=== PATIENT | male | born 1960 | race Caucasian/White ===

== ENCOUNTER → 2017-07-04 15:08 | Outpatient (CLI) | payer BC, SELFPAY ==
[2017-07-04 16:53] LABS: Blood Urea Nitrogen 13 mg/dL (7-18); Creatinine,Serum 0.93 mg/dL (0.70-1.30); Estimated Glomerular Filt Rate 84 ml/min (>60); GFR (African American) 102 ML/MIN (>60)
== END ==
PROVIDERS: PCP Family Medicine; Visit Provider Surgery
DX: R10.30 Lower abdominal pain, unspecified (principal)
CPT/HCPCS: 36415; 82565; 84520

== ENCOUNTER → 2017-07-10 08:52 | Outpatient (CLI) | payer BC, SELFPAY ==
--- NOTE | 2017-07-10 08:54 | CT_ITS ---
CT abdomen pelvis w con CLINICAL INDICATION: Lower abdominal/pelvic pain ITS.REASON: PELVIC PAIN ORDERING PHYSICIAN: Christiano Faria MD PATIENT AGE: 56 years TECHNIQUE: Axial images obtained with sagittal and coronal reformats. All CT scans at the facility use one or more dose reduction, viz: automated exposure control; ma/kV adjustment per patient size (including targeted exams where dose is matched to indication; i.e. head); or iterative reconstruction technique. PROCEDURE: Oral Contrast: Redicat IV Contrast: 75 mL's of Isovue-370. FINDINGS: No acute finding is lower chest. The liver, spleen, adrenal glands, pancreas, and kidneys have an unremarkable appearance. There is a moderate amount retained colonic feces in the ascending and transverse colon. No intestinal obstruction or free air. No evidence of appendicitis or diverticulitis. No pelvic mass or focal inflammatory change or abnormal fluid collection in the pelvis. There is a small left inguinal hernia containing fat. No acute bony anomalies. IMPRESSION: No acute finding. Small left inguinal hernia containing fat. Otherwise negative CT abdomen and pelvis
== END ==
PROVIDERS: Family Provider Family Medicine; PCP Family Medicine; Visit Provider Surgery
DX: R10.30 Lower abdominal pain, unspecified (principal)
CPT/HCPCS: 74177; Q9967

== ENCOUNTER → 2017-11-26 15:44 | Outpatient (CLI) | payer BC, SELFPAY ==
--- NOTE | 2017-11-26 15:51 | XR_ITS ---
XR chest 2V HISTORY: ITS.REASON: H/O TOBACCO USE ORDERING PHYSICIAN: Raymundo Aldana MD PATIENT AGE: 57 years COMPARISON: None FINDINGS: The cardiomediastinal silhouette and pulmonary vascularity are within normal limits. The lungs are clear without infiltrates, suspicious nodules, or pleural effusions. There is a calcified granuloma in the right upper lobe and right lower lobe. No acute bony abnormalities. IMPRESSION: Old granulomatous disease, no acute finding
== END ==
PROVIDERS: PCP Family Medicine; Visit Provider Family Medicine
DX: Z01.818 Encounter for other preprocedural examination (principal)
CPT/HCPCS: 71046

== ENCOUNTER 2018-03-26 09:00 | Outpatient (RCR) | payer BC, SELFPAY | END 2018-03-26 09:03 | disposition home or self-care (01) | LOC: PT 09:00 | PROVIDERS: Family Provider Family Medicine; PCP Family Medicine; Visit Provider Orthopaedic Surgery | DX: Z96.651 Presence of right artificial knee joint (principal) | CPT/HCPCS: 97010; 97014; 97016; 97110; 97140; 97163; 97164; G0283 ==

== ENCOUNTER 2021-03-14 12:13 | Emergency (ER) | payer BC, SELFPAY ==
[2021-03-14 13:30] VITALS: BP 105/69; PULSE 69; RESP 20; TEMP 36.7; O2SAT 100; BMI 26.9
[2021-03-14 13:45] LABS: UTC Strep Screen (Rapid) Negative (Negative)
--- NOTE | 2021-03-14 14:28 | HMH.EDUTC ---
[facility] [place] Disposition Clinical Impression: Diarrhea Qualifiers: Diarrhea type: unspecified type Qualified Code(s): R19.7 - Diarrhea, unspecified Sinusitis Qualifiers: Sinusitis location: unspecified location Chronicity: unspecified Qualified Code(s): J32.9 - Chronic sinusitis, unspecified Disposition: Home, Self-Care Condition on Discharge: Good Instructions: Sinusitis, DI for Sinusitis Additional Instructions: Make sure that you are drinking plenty of fluids Drink extra fluids with and between meals. If you have difficulty drinking, try very small amounts of water or suck on ice chips. ? Avoid fruit juices, as these do not replace minerals and can actually increase diarrhea. ? Children and adults can use sports drinks to replenish electrolytes. Younger children and infants should use products formulated for children, like oral rehydration solutions. ? Eat food in small amounts and let your stomach recover. ? Get lots of rest. You may feel tired or weak. ? No greasy or fried foods for the next 24-48 hours BRAT diet Bananas Rice Apples and [place] ? Make sure to drink plenty of liquids ? Return if needed ? Straight to ER if any life threatening symptoms ? Zofran as prescribed ? Follow up with family doctor in the next 48-72 hours if no improvement or any worsening of symptoms Prescriptions: Dicyclomine HCl [Bentyl 10mg capsule] 10 mg PO TID PRN #15 cap PRN Reason: Cramping Transmission Status: Received by [facility] Azithromycin [Z-Isxto 250mg Tab] 250 mg PO DIRECTED #6 tab Transmission Status: Received by [facility] Referrals: Raymundo Aldana MD [Primary Care Provider] - As needed Time of Disposition: 14:42 Medical Decision Making - Leonid Inquiry Pt receiving controlled substance: No Leonid was queried for this patient: No Vital Signs: 03/14/21 13:30 03/14/21 15:09 Temperature 98.0 F 98.0 F Temperature Source Oral Oral Pulse Rate 70 Pulse Rate [Right Brachial] 69 Respiratory Rate 20 18 Blood Pressure 110/72 Blood Pressure [Right Arm] 105/69 L Blood Pressure Mean [Right Arm] 81 Blood Pressure Source Automatic Cuff Blood Pressure Source [Right Arm] Automatic Cuff Blood Pressure Position Sitting Blood Pressure Position [Right Arm] Sitting 02 Sat by Pulse Oximetry 100 Oxygen Delivery Method Room Air Room Air - Lab Data Lab results reviewed: Yes: I reviewed the patient's lab results. Lab Results 03/14/21 13:36: Strep Scn Rapid Clinic Negative 03/14/21 14:45: Stl Aeromonas (PCR) Not detected, Stl C. cayetanensis PCR Not detected, Stool Rotavirus (PCR) Not detected, Stl Adenov F 40/41 PCR Not detected, Stool Astrovirus (PCR) Not detected, Stool Campylobacter PCR Not detected, Stl C.difficile Tox PCR Not detected, Stool Cryptosporidium PCR Not detected, Stl E.coli Shiga Tox PCR Not detected, Stool E coli O157 PCR Not detected, Stl Enterotoxigenic E PCR Not detected, Stool EPEC (PCR) Not detected, Stool EAEC (PCR) Not detected, Stl E. histolytica PCR Not detected, Stool Giardia Lamblia PCR Not detected, Stool Salmonella PCR Not detected, Stool Sapovirus (PCR) Not detected, Stl P. shigelloides PCR Not detected, Stl Shigella/EIEC PCR Not detected, St Y.enterocolitica PCR Not detected, Stool Vibrio (PCR) Not detected, Stl Vibrio cholerae PCR Not detected, Stl Norovirus GI/GII PCR Not detected Orders (Tests/Meds): ORDERS Category Date Time Status Covid-19 Nasal PCR ([facility]) Routine Lab 03/14/21 15:05 Received Strep Screen Confirmation Routine Micro 03/14/21 13:36 Received [facility] UTC HPI - General Stated complaint: cough,headache,runny nose Time Seen by Provider: 03/14/21 14:29 Mode of Arrival: Ambulatory Source of Information: Patient Limitations: No Limitations Description of Symptoms (Recalled from Triage Doc. by RN): PATIENT C/O SORE THROAT, SINUS PRESSURE AND STOMACH ACHE THAT STARTED FRIDAY HEENT Symptoms (Recalled from RN notes): Yes Resp Symptoms (Recalled from RN notes)
[2021-03-14 14:52] LABS: Adenovirus F 40/41, stool Not Detected (NotDetected); Astrovirus Not Detected (NotDetected); Campylobacter Not Detected (NotDetected); Clostridium Difficile A/B, PCR Not Detected (NotDetected); Cryptosporidium Not Detected (NotDetected); Cyclospora Cayetanesis Not Detected (NotDetected); Entamoeba histolytica Not Detected (NotDetected); Enteroaggregative E coli Not Detected (NotDetected); Enteropathogenic E coli Not Detected (NotDetected); Enterotoxigenic E coli Not Detected (NotDetected); Giardia lamblia Not Detected (NotDetected); Norovirus Not Detected (NotDetected); Plesimonas Shigalloides, PCR Not Detected (NotDetected); Rotavirus A Not Detected (NotDetected); Salmonella, PCR Not Detected (NotDetected); Sapovirus Not Detected (NotDetected); Shiga-like toxin E coli Not Detected (NotDetected); Shigella Enterovasive E coli Not Detected (NotDetected); Vibrio Cholerae Not Detected (NotDetected); Vibrio, PCR Not Detected (NotDetected); Yersinia Entercolitica, PCR Not Detected (NotDetected)
[2021-03-14 15:09] VITALS: BP 110/72; PULSE 70; RESP 18; TEMP 36.7; O2SAT 100
== END 2021-03-14 15:11 | disposition home or self-care (01) ==
PROVIDERS: Emergency Provider Nurse Practitioner; PCP Family Medicine
DX: J32.9 Chronic sinusitis, unspecified (principal); Z20.822 Contact with and (suspected) exposure to COVID-19; Z88.0 Allergy status to penicillin
CPT/HCPCS: 87507; 87880; 99202; C9803; G0463; U0003; U0005

== ENCOUNTER 2021-04-23 13:30 | Outpatient (RCR) | payer BC, SELFPAY | END 2021-04-23 13:35 | disposition home or self-care (01) | LOC: PT 13:30 | PROVIDERS: PCP Family Medicine; Visit Provider Orthopaedic Surgery | DX: M25.561 Pain in right knee (principal); Z96.651 Presence of right artificial knee joint | CPT/HCPCS: 97010; 97014; 97016; 97110; 97112; 97163; 97164; 97530; G0283 ==

== ENCOUNTER 2021-11-20 11:00 | Outpatient (RCR) | payer BC, SELFPAY | END 2021-11-20 11:05 | disposition home or self-care (01) | LOC: PT 11:00 | PROVIDERS: Visit Provider Orthopaedic Surgery | DX: M25.561 Pain in right knee (principal); Z96.651 Presence of right artificial knee joint | CPT/HCPCS: 97110; 97163; 97164 ==

== ENCOUNTER 2022-08-16 10:00 | Outpatient (RCR) | payer BC, SELFPAY | END 2022-08-16 10:05 | disposition home or self-care (01) | LOC: PT 10:00 | PROVIDERS: Visit Provider Orthopaedic Surgery | DX: M25.561 Pain in right knee (principal); Z96.651 Presence of right artificial knee joint | CPT/HCPCS: 97010; 97014; 97016; 97110; 97112; 97163; 97164; 97530; G0283 ==

== ENCOUNTER → 2023-02-21 13:45 | Outpatient (POV) | payer BC, SELFPAY ==
[2023-02-21 13:57] VITALS: BP 114/72; PULSE 52; RESP 20; TEMP 36.3; O2SAT 98; BMI 25.0
--- NOTE | 2023-02-21 16:00 | EXP.PAIN.OV ---
HPI Data of Consult Patient: new to practice Consult date: 02/21/23 Requesting Physician: Darius Bruce MD Primary Care Provider: Cedrick Weston MD Consult Narrative Reason for consult: Left knee pain and neuropathic pain in the lower leg History of present illness: Mr. Villarreal is a 62 year old male who is status post left total knee replacement approximately 3 months ago. He is doing physical therapy he has good range of motion of his left knee. He is having significant neuropathic symptoms of his lower leg below the knee. This extends into the ankle. He may have complex regional pain syndrome type II symptoms with nerve injury contributing to neuropathic pain. CC: Darius Bruce MD [facility] Disclaimer: The information contained in this section may have been updated after the patient was seen, as this information can be updated by other users. Medical History Adult hypothyroidism CRPS (complex regional pain syndrome type II) Smoker Surgical History H/O hernia repair Hx of appendectomy Hx of cholecystectomy Family History (Updated 02/21/23 @ 14:01 by Elsy Mike RN) Family history of cancer Social History (Updated 02/21/23 @ 14:09 by Elsy Mike RN) Smoking Status: Current every day smoker tobacco type: cigarettes second hand exposure: No alcohol intake: never counseling provided: none substance use type: denies use current occupational status: other Travel in the last 8 weeks: None household members: spouse housing: house Review of Systems *Neurologic Neurologic: Reports paresthesias Meds Home Medications and Allergies Home Medications Medication Instructions Recorded Confirmed Type gabapentin 600 mg tablet 600 mg PO TID 02/21/23 02/21/23 History levothyroxine 100 mcg tablet 100 mcg PO DAILY 02/21/23 02/21/23 History New Prescriptions to Start Prescriptions: Allergies Allergy/AdvReac Type Severity Reaction Status Date / Time Penicillins Allergy Intermediate I-HIVES Verified 02/21/23 14:09 Objective Vital signs: Temp Pulse Resp BP Pulse Ox O2 Del Method 97.4 F L 52 L 20 114/72 98 Room Air 02/21/23 13:57 02/21/23 13:57 02/21/23 13:57 02/21/23 13:57 02/21/23 13:57 02/21/23 13:57 Assessment and Plan *Assessment and plan (1) Neuropathic pain of ankle: Status: Acute Category: Medical Code(s): M79.2 - Neuralgia and neuritis, unspecified (2) Lumbar radiculopathy: Status: Acute Category: Medical Code(s): M54.16 - Radiculopathy, lumbar region (3) Left knee pain: Status: Acute Qualifiers: Chronicity: chronic Qualified Code(s): M25.562 - Pain in left knee; G89.29 - Other chronic pain Category: Medical Code(s): M25.562 - Pain in left knee Plan This patient is currently on gabapentin 600 mg 3 times a day which is helping. He continues to do physical therapy. I do believe that he would benefit from a lumbar epidural injection to help with his left-sided neuropathic pain. If he does not get long-term relief from this injection he may be a candidate for spinal cord stimulation. I do believe he is exhibiting symptoms of CRPS type I symptoms or causalgia with nerve injury of the lower extremity.
== END ==
PROVIDERS: PCP Family Medicine; Visit Provider Anesthesiology
DX: M79.2 Neuralgia and neuritis, unspecified (principal); M54.16 Radiculopathy, lumbar region; M25.562 Pain in left knee; G89.29 Other chronic pain
CPT/HCPCS: 99202; G0463

== ENCOUNTER 2023-02-25 10:35 | Day surgery (SDC) | payer BC, SELFPAY ==
[2023-02-25 10:58] VITALS: BP 110/73; PULSE 61; RESP 18; TEMP 36.2; O2SAT 94; BMI 25.0
[2023-02-25 11:12] VITALS: BP 111/66; PULSE 64; O2SAT 97
[2023-02-25 11:16] VITALS: BP 111/66; PULSE 58; O2SAT 99
[2023-02-25 11:20] VITALS: BP 100/62; PULSE 49; RESP 16; O2SAT 94
--- NOTE | 2023-02-25 11:21 | EXP.PAIN.PRO ---
Procedure Date: 02/25/23 Time: 11:00 Anesthesiologist:: Venu Carty CRNA Complications:: None Pre-procedure Diagnosis:: Degenerative disc lumbar spine multilevels. Lumbar radiculopathy. Left greater than right. Chronic left knee pain post left knee replacement. Post-procedure Diagnosis:: Same. Indications for Procedure:: Patient is a very pleasant 62-year-old male comes our clinic today for a left sided L5-S1 lumbar epidural steroid injection. Patient continues having left knee pain as well as left anterior tibia pain status post left TKA. Patient describes the pain as constant, dull, aching. Patient also has low back pain he describes as constant, dull, aching. He rates his pain 8/10. Procedure Details:: Procedure: Lumbar epidural steroid injection under fluoroscopy Informed consent was obtained and the risks and benefits of the procedure were explained to the patient. The patient was taken to the procedure room and noninvasive monitors placed, including noninvasive blood pressure cuff and pulse oximeter. The back was viewed using C-arm Fluoroscopy and prepped using Chloraprep as a cleansing solution and the L5-S1 interspace was palpated. Skin and subcutaneous tissues were anesthetized using lidocaine 1.5% and a 25-gauge needle. After this, an 18-gauge Touhy epidural needle was placed into the L5-S1 interspace and advanced using fluoroscopic guidance and loss of resistance to air until the epidural space was encountered. After confirmation of needle placement in the epidural space, with dye, a solution containing normal saline, 3 mL and Depo-Medrol 80 mg were incrementally injected into the lumbar epidural space. The patient tolerated the procedure well with no complications. The patient was observed in the Pain Clinic and then discharged home neurologically intact. Plan and Disposition:: Patient was discharged without incident.
== END 2023-02-25 11:20 | disposition home or self-care (01) ==
PROVIDERS: PCP Family Medicine; Visit Provider Nurse Anesthetist, Certified Registered
DX: M51.16 Intervertebral disc disorders with radiculopathy, lumbar region (principal); M25.562 Pain in left knee; G89.29 Other chronic pain; Z96.652 Presence of left artificial knee joint
CPT/HCPCS: 62323; J1040

== ENCOUNTER 2023-03-12 08:00 | Outpatient (RCR) | payer BC, SELFPAY | END 2023-03-12 09:20 | disposition home or self-care (01) | LOC: PT 08:00 | PROVIDERS: Visit Provider Orthopaedic Surgery | DX: M25.562 Pain in left knee (principal); Z96.652 Presence of left artificial knee joint | CPT/HCPCS: 97010; 97014; 97016; 97110; 97140; 97163; 97164; 97530; G0283 ==

== ENCOUNTER → 2023-03-19 14:00 | Outpatient (POV) | payer BC, SELFPAY ==
--- NOTE | 2023-03-19 14:43 | A.OFFVIS_ITS ---
[facility] Pain Management SOAP Note Subjective:: Patient is a pleasant 62-year-old male who presents today for follow-up of lumbar epidural steroid injection left-sided L5-S1 on 02/25/2023. We are currently treating the patient for left knee pain with neuropathic pain down the lower left extremity. Patient does rate his pain today an 8 out of 10. Patient denies any new trauma or injury. He does state that he had no improvement whatsoever from his lumbar epidural. He states he continues to have constant pain at his left knee radiating down to his ankle. Patient states he feels like it is a nerve sensation that is constantly firing down to his ankle. He does describe this as an aching, sharp, tingling sensation he states it is worse when he applies socks or shoes to his lower foot. He does state that sometimes massaging will improve his symptoms however never take it completely away. He has been using compounded cream with some improvement. Patient does continue to state he had not had any of this pain prior to having a left knee replacement that occurred on December 10, 2022. Patient states that Dr. Sue did do this procedure and stated that he did not believe it was related to the surgical operation. Patient does state that the pain interferes with his ability perform activities of daily living such as cooking and cleaning. Patient is interested in any help we may be able to provide. Patient has tried and failed conservative therapies such as oral medications, heat and ice, topicals, physical therapy, at home stretching exercise for longer than 6 weeks. His Leonid has been reviewed and is appropriate. \Review of Systems: General: No recent weight changes, no fever, no sleep disturbances Respiratory: No cough, no shortness of air, no recurring pulmonary infections Cardiovascular/peripheral vascular: No chest pain, no palpitations, no edema, no shortness of breath Gastrointestinal: No new onset incontinence, normal bowel movements reported Genitourinary: No new onset incontinence Musculoskeletal: Left knee pain left leg pain Psychiatric: [Normal mood/affect] Neurological: [Denies weakness in extremities], [denies balance issues] Objective:: Physical Exam: General: Alert and oriented x3, no acute distress, pleasant and cooperative Lungs: Respirations even and unlabored, symmetrical chest expansion Eyes: PERRL Musculoskeletal: Flexion and extension of left knee somewhat guarded secondary to pain, [antalgic gait noted] point tenderness noted along left knee Neurological: Speech clear, no gross sensory deficit Assessment:: Left knee pain, neuropathic pain down left lower extremity, CRPS lower limb Plan:: Patient is experiencing worsening pain in his left knee down to his ankle. Patient did have point tenderness along his left knee. I have discussed with the patient that he may benefit from trigger point injections around the sites. Risk and benefits were discussed with the patient and he would like to proceed forward with this plan of care. Patient will be scheduled for left knee trigger point injections. Patient has been instructed to contact the clinic with any concerns before the next appointment. Dr. Bruce has reviewed this note and agrees with this plan of care. This note was dictated using voice recognition software and make contain errors or omissions. [facility] Disclaimer: The information contained in this section may have been updated after the patient was seen, as this information can be updated by other users. Medical History Adult hypothyroidism CRPS (complex regional pain syndrome type II) Smoker Surgical History H/O hernia repair Hx of appendectomy Hx of cholecystectomy Family History Other Family history of cancer Social History Smoking Status: Current every day smoker tobacco type: cigarettes second hand exposure: No alcohol intake: never counseling provided: none substance use type: denies use current occupational status: other Travel in the last 8 weeks: None household members: spouse housing: house
[2023-03-19 14:56] VITALS: BP 96/43; PULSE 55; RESP 18; O2SAT 100; BMI 25.0
== END ==
LOC: SC.PAIN 14:00
PROVIDERS: PCP Family Medicine; Visit Provider Nurse Practitioner Family
DX: M25.562 Pain in left knee (principal); G57.92 Unspecified mononeuropathy of left lower limb; G90.522 Complex regional pain syndrome I of left lower limb
CPT/HCPCS: 99212; G0463

== ENCOUNTER 2023-04-08 10:07 | Day surgery (SDC) | payer BC, SELFPAY ==
[2023-04-08 10:20] VITALS: BP 106/52; PULSE 60; RESP 18; TEMP 36.1; O2SAT 97; BMI 25.7
[2023-04-08 10:28] VITALS: BP 98/41; PULSE 62; RESP 18
[2023-04-08] MEDS: BUPIVACAINE 0.25% 10ML INJ 25 MG IJ (10:28)
[2023-04-08] MEDS: methylPREDNISolone ACETATE 80MG/ML VIAL 80 MG (10:28)
[2023-04-08] MEDS: LIDOCAINE 1% 5ML PF VIAL 5 ML (10:28)
[2023-04-08 10:37] VITALS: BP 98/41; PULSE 62; RESP 18; O2SAT 98
[2023-04-08 10:45] VITALS: BP 107/64; PULSE 65; RESP 16; O2SAT 97
--- NOTE | 2023-04-08 11:00 | EXP.PAIN.PRO ---
Procedure Date: 04/08/23 Time: 10:30 Anesthesiologist:: Venu Carty CRNA Complications:: None Pre-procedure Diagnosis:: Status post left total knee arthroplasty. Chronic left knee pain. Post-procedure Diagnosis:: Same. Indications for Procedure:: Patient is a very pleasant 62-year-old male comes our clinic today for left distal quadriceps tendon trigger point injection medial and lateral. Also, anterior proximal patellar tendon trigger point injection. Patient had total left knee arthroplasty November 2022. He has had left knee pain since. He describes the pain as constant, dull, aching in the knee joint. Also, radicular symptoms anterior tibia to the anterior portion of the foot. He rates his pain 8/10. Procedure Details:: Details of the procedure explained to the patient. Patient taken procedure room placed in the sitting position. The area over the knee was cleansed using chlorhexidine's cleansing solution. Using a 25-gauge inch and half needle the distal quadriceps tendon was accessed medial and laterally. 4 cc of 1% lidocaine +20 mg of Depo-Medrol was injected at each site. The same procedure was carried out at the anterior patellar tendon. Patient tolerated procedure without difficulty. There are no complications. Plan and Disposition:: Patient was discharged without incident.
== END 2023-04-08 10:45 | disposition home or self-care (01) ==
PROVIDERS: PCP Family Medicine; Visit Provider Nurse Anesthetist, Certified Registered
DX: M25.562 Pain in left knee (principal); G89.29 Other chronic pain; Z96.652 Presence of left artificial knee joint
CPT/HCPCS: 20551; J1040

== ENCOUNTER → 2023-04-30 10:39 | Outpatient (POV) | payer BC, SELFPAY ==
--- NOTE | 2023-04-30 10:47 | A.OFFVIS_ITS ---
[facility] Pain Management SOAP Note Subjective:: Patient is a pleasant 62-year-old male who presents today for follow-up of trigger point injections of his left knee on 04/08/2023. We are currently treating the patient for left knee pain with neuropathic pain down the lower left extremity. Patient does rate his pain today an 6 out of 10. Patient denies any new trauma or injury. He does state that he had at least 60% following these injections lasting approximately 10 days. Patient states during that time he was able to increase his activity with decreased pain and felt overall more functional. He does state that this was the first procedure that did relieve his ankle pain. Patient does state that he is back to his baseline today and states his pain still continues to be from his left knee down to his ankle. He does state that he has recently gotten a bill for the injections and stated that her [facility] charges were over 1500 and that his portion is over $700. Patient does state that he does have obvious concern regarding the cost of the injections. Patient is currently managed with gabapentin 600 mg 3 times a day from Dr. Sue's office. He does state though he does not notice significant relief with this and is requesting if we can try the Lyrica that we did discuss at our last visit. His Leonid has been reviewed and is appropriate. \Review of Systems: General: No recent weight changes, no fever, no sleep disturbances Respiratory: No cough, no shortness of air, no recurring pulmonary infections Cardiovascular/peripheral vascular: No chest pain, no palpitations, no edema, no shortness of breath Gastrointestinal: No new onset incontinence, normal bowel movements reported Genitourinary: No new onset incontinence Musculoskeletal: Left knee pain left leg pain Psychiatric: [Normal mood/affect] Neurological: [Denies weakness in extremities], [denies balance issues] Objective:: Physical Exam: General: Alert and oriented x3, no acute distress, pleasant and cooperative Lungs: Respirations even and unlabored, symmetrical chest expansion Eyes: PERRL Musculoskeletal: Flexion and extension of left knee somewhat guarded secondary to pain, [antalgic gait noted] Neurological: Speech clear, no gross sensory deficit Assessment:: Left knee pain with neuropathic pain lumbar radiculopathy Plan:: Patient did have significant improvement following his left knee trigger point injections however it only lasted approximately 10 days. I have discussed with the patient in future it may be beneficial for him to contact his insurance and discuss the cost difference from hospital setting versus outpatient setting. I have discussed with the patient that we do have an outpatient clinic that is available to do injections if it does make it cheaper on him. I have also gone over discontinuing his gabapentin and explained that he does need to decrease his dosage over the next week to twice a day to help minimize side effects. I will send in a prescription of pregabalin 50 mg 3 times a day with a 2-week supply of this medication. Patient will return to clinic in 2 weeks for reevaluation of symptoms and plan of care. Patient has been instructed to contact the clinic with any concerns before the next appointment. Dr. Bruce has reviewed this note and agrees with this plan of care. This note was dictated using voice recognition software and make contain errors or omissions. [facility] Disclaimer: The information contained in this section may have been updated after the patient was seen, as this information can be updated by other users. Medical History Adult hypothyroidism CRPS (complex regional pain syndrome type II) Smoker Surgical History H/O hernia repair Hx of appendectomy Hx of cholecystectomy Family History Other Family history of cancer Social History Smoking Status: Current every day smoker tobacco type: cigarettes second hand exposure: No alcohol intake: never counseling provided: none substance use type: denies use current occupational status: other Travel in the last 8 weeks: None household members: spouse housing: house
[2023-04-30 12:08] VITALS: BP 118/72; PULSE 69; RESP 18; O2SAT 99; BMI 25.0
== END | disposition home or self-care (01) ==
PROVIDERS: PCP Family Medicine; Visit Provider Nurse Practitioner Family
DX: M25.562 Pain in left knee (principal); M54.16 Radiculopathy, lumbar region
CPT/HCPCS: 99212; G0463

== ENCOUNTER → 2023-05-14 08:36 | Outpatient (POV) | payer BC, SELFPAY ==
[2023-05-14 09:10] VITALS: BP 104/72; PULSE 68; RESP 18; O2SAT 99; BMI 25.7
--- NOTE | 2023-05-14 09:21 | EXP.PAIN.SOA ---
[facility] Pain Management SOAP Note Subjective:: Patient is a pleasant 62-year-old male who presents today for follow-up. We are currently treating the patient for left knee pain with neuropathic pain down to the left lower extremity. Today he rates his pain a 9 out of 10. Patient denies any new trauma or injury. He does state that he is starting to experience more pain in and around his left knee. Patient did previously have a trigger point injection of his left knee that did provide 60% relief lasting nearly 2 weeks. Patient does state that he would like to repeat this injection. Patient does describe his pain as a aching, throbbing sensation that is worse with increased activity or ambulation. He does state it does interfere with his ability perform activities of daily living such as cooking and cleaning. He does state when he had the last injection he was able to increase his activity overall with decreased pain symptoms and felt more functional. Patient was previously charged over $1500 for his last injection and is requesting if he can go to the outpatient clinic setting due to this. Patient was also switched over at his last visit from the gabapentin to the pregabalin at 50 mg 3 times a day. Patient states he did not notice significant improvement with this. His Leonid has been reviewed and is appropriate. Review of Systems: General: No recent weight changes, no fever, no sleep disturbances Respiratory: No cough, no shortness of air, no recurring pulmonary infections Cardiovascular/peripheral vascular: No chest pain, no palpitations, no edema, no shortness of breath Gastrointestinal: No new onset incontinence, normal bowel movements reported Genitourinary: No new onset incontinence Musculoskeletal: Left knee Psychiatric: [Normal mood/affect] Neurological: [Denies weakness in extremities], [denies balance issues] Objective:: Physical Exam: General: Alert and oriented x3, no acute distress, pleasant and cooperative Lungs: Respirations even and unlabored, symmetrical chest expansion Eyes: PERRL Musculoskeletal: Flexion and extension of left knee somewhat guarded secondary to pain, [antalgic gait noted] point tenderness along left knee Neurological: Speech clear, no gross sensory deficit Assessment:: Left knee pain with neuropathic pain down left lower extremity Plan:: Patient is experiencing worsening pain in his left knee with limited range of motion and point tenderness in and around this joint. I discussed the patient the risk and benefits of repeating his last injections. He would like to proceed forward with this option. We will send him to our [place] outpatient clinic setting for this injection due to the last bill he got been over $1500 for those injections due to being within a hospital setting. We will send over all his documents over to the [place] clinic location. This office will reach out to schedule him for the left knee trigger point injections. I have also discussed with the patient that I will increase his pregabalin to 100 mg 3 times a day and provide a 1 month supply of this medication. Patient has been instructed to contact the clinic with any concerns before the next appointment. Dr. Bruce has reviewed this note and agrees with this plan of care. This note was dictated using voice recognition software and make contain errors or omissions. [facility] Disclaimer: The information contained in this section may have been updated after the patient was seen, as this information can be updated by other users. Medical History Adult hypothyroidism CRPS (complex regional pain syndrome type II) Smoker Surgical History H/O hernia repair Hx of appendectomy Hx of cholecystectomy Family History Other Family history of cancer Social History Smoking Status: Current every day smoker tobacco type: cigarettes second hand exposure: No alcohol intake: never counseling provided: none substance use type: denies use current occupational status: other Travel in the last 8 weeks: None household members: spouse housing: house
== END | disposition home or self-care (01) ==
PROVIDERS: PCP Family Medicine; Visit Provider Nurse Practitioner Family
DX: M25.562 Pain in left knee (principal); G57.92 Unspecified mononeuropathy of left lower limb
CPT/HCPCS: 99212; G0463

== ENCOUNTER 2023-07-04 13:33 | Outpatient (CLI) | payer BC, SELFPAY ==
--- NOTE | 2023-07-04 13:35 | CA_ITS ---
APPROVED REPORT EXAM: Comprehensive 2D, Doppler, and color-flow Echocardiogram Senior Buyer: Leslie Villalba RT(R) Ht: 6 ft 2 in Wt: 205lbs BSA: 2.20 BP: 98/68 mmHg Indications: arrhythmia, murmur, smoker, palpitations, fatigue, MERAZ, hypothyroidism. 2D Dimensions LVEF (Chicas's) 62.80 % M: 52 - 72 LV Volume 74.40 mL M: 62 - 150 LV Volume Index 33.8 mL/m2 M: 34 - 74 LA Volume 21.10 mL LA Volume Index 9.59 mL/m2 (M/F) 16-34 EF AP4 61.50 % EF AP2 59.2 % EF BP 62.8 % GL Strain -16.0 % M-Mode Dimensions RVDd 3.60 cm (0.9-2.6) LA Diam 2.85 cm (1.9-4.0) LVDd 4.79 cm (3.5-5.7) LVDs 3.73 cm (3.5-5.7) IVSd 1.19 cm (0.6-1.1) PWd 1.10 cm (0.6-1.1) EF (Teich) 44.60% FS 22.10% EDV (Teich) 107.00 mL ESV (Teich) 59.30 mL LV Diastology E Decel Time 260 (160-240 msec) E/A Ratio 1.5 Mitral Valve MV E Max Joey. 63.0 (40-130 cm/s) MV A Velocity 43.0 (40-130 cm/s) E/A Ratio 1.48 MV PHT 76.0 ms Left Ventricle The left ventricle is normal size. The left ventricular systolic function is normal. The left ventricular ejection fraction is within the normal range. There is increased LV wall thickness. There is normal LV segmental wall motion. The left ventricular diastolic function is normal. LVEF is 55%. Right Ventricle The right ventricle is normal size. The right ventricular systolic function is normal. Atria The left atrium size is normal. The right atrium size is normal. There is no Doppler evidence of interatrial shunt. Aortic Valve The aortic valve opens well. There is no aortic valvular stenosis. Trace aortic regurgitation. Mitral Valve The mitral valve is normal in structure. No evidence of mitral valve stenosis. There is no mitral valve regurgitation noted. Tricuspid Valve The tricuspid valve leaflets are thin and pliable. Trace tricuspid regurgitation. There is insufficient TR jet to estimate RVSP. Pulmonic Valve The pulmonary valve is normal in structure. Trace pulmonic regurgitation. Great Vessels The aortic root is normal in size. The ascending aorta is normal in size. IVC is normal in size and collapses >50% with inspiration. Pericardium There is no pericardial effusion. Other Information Study Quality: Fair Conclusion Normal biventricular systolic function. No significant valvular stenosis or regurgitation. Electronically signed by : Elidia Meadows MD 07/09/2023 00:40:31
== END 2023-07-04 23:59 ==
LOC: RT 13:33
PROVIDERS: PCP Internal Medicine Adolescent Medicine; Visit Provider Internal Medicine Adolescent Medicine
DX: I49.8 Other specified cardiac arrhythmias (principal)
CPT/HCPCS: 93306

== ENCOUNTER 2023-08-27 13:41 | Outpatient (POV) | payer BC, SELFPAY ==
[2023-08-27 13:50] VITALS: BP 112/72; PULSE 76; RESP 16; O2SAT 100; BMI 26.3
--- NOTE | 2023-08-27 14:11 | A.OFFVIS_ITS ---
[facility] Pain Management SOAP Note Subjective:: Patient is a pleasant 62-year-old male who presents today for 1 month follow-up. Today he rates his pain an 8 out of 10. He denies any new trauma or injury. Patient was sent to the [facility] location for a genicular nerve block however he does state that when he got there they told him that insurance did not cover this injection so due to his chronic pain even at his left ankle they did end up doing a injection in this location. Patient states that it really did not make any additional relief. He also states that he ended up having to do a urine drug screen when he was there and the cost ended up being $569 on his portion. Patient states that he was very confused why the cost was so much and that he did call and ask about this however it was not outside company that did the urine drug screen. Patient does state that he did want to make sure that we were aware of these issues as the whole point he was going to [place] was in order to get the injection for less cost. Patient is currently managed with pregabalin 100 mg at bedtime. He does state that this does help as far as with his overall pain. Patient has tried compounded cream and states that it does do so-so. Patient does state that he had an updated MRI of the [facility] and he is scheduled for follow-up with Flako Alvarado in October. He states that he was told that there were no significant findings in his lumbar spine. His Leonid has been reviewed and is appropriate. Review of Systems: General: No recent weight changes, no fever, no sleep disturbances Respiratory: No cough, no shortness of air, no recurring pulmonary infections Cardiovascular/peripheral vascular: No chest pain, no palpitations, no edema, no shortness of breath Gastrointestinal: No new onset incontinence, normal bowel movements reported Genitourinary: No new onset incontinence Musculoskeletal: Left knee pain, left lower extremity pain, lumbar radiculopathy Psychiatric: [Normal mood/affect] Neurological: [Denies weakness in extremities], [denies balance issues] Objective:: Physical Exam: General: Alert and oriented x3, no acute distress, pleasant and cooperative Lungs: Respirations even and unlabored, symmetrical chest expansion Eyes: PERRL Musculoskeletal: Flexion and extension of left knee [spine] somewhat guarded secondary to pain, [antalgic gait noted] Neurological: Speech clear, no gross sensory deficit Assessment:: Left knee pain with neuropathic pain down left lower extremity, left ankle pain, lumbar radiculopathy Plan:: I will refill the patient's pregabalin 100 mg at bedtime and provide a 3-month supply of this medication. I have discussed with the patient in future I will make sure that he does not have to do the urine drug screens at each visit. Patient was counseled that if we change what medications we are prescribing that this may change in future. Patient acknowledges understanding agrees with plan of care. Patient will return to clinic in 3 months for reevaluation of symptoms and plan of care. Patient has been instructed to contact the clinic with any concerns before the next appointment. Dr. Bruce has reviewed this note and agrees with this plan of care. This note was dictated using voice recognition software and make contain errors or omissions. [facility] Disclaimer: The information contained in this section may have been updated after the patient was seen, as this information can be updated by other users. Medical History Adult hypothyroidism CRPS (complex regional pain syndrome type II) Smoker Surgical History H/O hernia repair Hx of appendectomy Hx of cholecystectomy Family History Other Family history of cancer Social History Smoking Status: Current every day smoker tobacco type: cigarettes second hand exposure: No alcohol intake: never counseling provided: none substance use type: denies use current occupational status: employed Travel in the last 8 weeks: None household members: spouse housing: house
== END 2023-08-27 23:59 | disposition home or self-care (01) ==
PROVIDERS: PCP Internal Medicine Adolescent Medicine; Visit Provider Nurse Practitioner Family
DX: M25.562 Pain in left knee (principal); M25.572 Pain in left ankle and joints of left foot; M54.16 Radiculopathy, lumbar region
CPT/HCPCS: 99212; G0463

== ENCOUNTER 2023-10-27 08:25 | Day surgery (SDC) | payer BC, SELFPAY ==
[2023-10-23 10:49] VITALS: BMI 26.3
[2023-10-27] MEDS: LACTATED RINGERS 1000ML 1,000 ML 100 ML IV (08:39)
[2023-10-27 08:44] VITALS: BP 98/53; PULSE 66; RESP 18; TEMP 36.2; O2SAT 96
--- NOTE | 2023-10-27 09:02 | EXP.ANES.CKL ---
[facility] Disclaimer: The information contained in this section may have been updated after the patient was seen, as this information can be updated by other users. Medical History Smoker CRPS (complex regional pain syndrome type II) Adult hypothyroidism Surgical History History of knee replacement Hx of cholecystectomy H/O hernia repair Hx of appendectomy Family History Other Family history of cancer Social History Smoking Status: Current every day smoker tobacco type: cigarettes second hand exposure: No alcohol intake: never counseling provided: none substance use type: denies use current occupational status: employed Travel in the last 8 weeks: None household members: spouse housing: house [facility] Anesthesia Checklist Patient Identification Patient Identification: Verbal (Name & ) Structural Data Admitted From: Home Planned Operative Procedure/s: colonoscopy Consent for Planned Operative Procedure(s) Verified: Yes NPO Status Verified Time NPO: 00:00 Additional verifications Anesthesia Reactions: No Hx Blood Transfusions: No Blood Transfusion Reaction: No Airway Assessment Mallampati Score:: Class II C-Spine Mobility Assessed: Yes TMJ Mobility Assessed: Yes Dentition: Good Dentition Neurological Assessment Level of Consciousness: Awake, Alert and Appropriate Anesthesia Plan Anesthesia Risk discussed: Yes Anesthesia Plan: Verified ASA Class: II Anesthesia Type: MAC
--- NOTE | 2023-10-27 09:06 | HMH.SCOPE ---
Procedure: Date: 10/27/23 Patient Date of :: 1960 Procedure Performed:: Total colonoscopy with polypectomy using biopsy forceps Indications:: Patient is a 63-year-old male whom I had previously seen for bilateral laparoscopic inguinal hernia repair. He had a colonoscopy at age 51. Reportedly this was unremarkable but 5-year follow-up was recommended. I performed follow-up colonoscopy on 08/05/2017 at which time he was found to have some possible early polyps. These actually returned as polypoid lymphoid aggregate. Performing Provider:: Christiano Faria MD Referring Provider:: Raymundo Tariq MD Sedation:: MAC sedation Procedure:: Patient history was obtained and appropriate physical examination was performed. Patient's medications and allergies were reviewed. Informed consent was obtained after explaining the benefits, alternatives, and risks of the procedure including, but not limited to, bleeding, perforation, missed lesions, and adverse reaction to anesthesia medications. Patient was transported to endoscopy procedure room. Patient was connected to monitoring devices. Throughout the procedure the patient's blood pressure, pulse, and oxygen saturations were monitored continuously. Patient identification and planned procedure were verified by the staff. Patient was positioned in lateral decubitus position. Digital anorectal exam was performed. Variable stiffness Olympus colonoscope was inserted and advanced under direct visualization to the cecum. Adequacy of the colonic preparation was noted. The colonoscope was then slowly withdrawn while carefully examining the color, texture, anatomy, and integrity of the mucosoa circumferentially. Within the rectum retroflexion was performed. Colonoscope was then withdrawn. Impression: There was a very large amount of particulate liquid stool throughout the colon. This was able to be mostly suctioned free with high-volume trans colonoscopic irrigation and suctioning. He had a very redundant colon with some atony and lack of relaxation particularly in the sigmoid colon. There is some rare sigmoid diverticulosis. There was a diminutive possibly early adenomatous polyp in the rectosigmoid which was removed with cold biopsy forceps and sent as rectosigmoid polyp. There is some additional hyperplastic polyp sent as a separate specimen. Retroflexion revealed internal hemorrhoids. Colonoscope was withdrawn. Findings:: Suboptimal preparation with large amount of particulate liquid stool throughout the colon mostly able to be cleared. Redundant atonic colon Rare sigmoid diverticulosis Rectosigmoid polyps Recommendations:: Likely repeat colonoscopy 3 to 5 years given polyps and colonic anatomy Complications:: None immediately apparent Estimated blood obtained (mL): 1 Colonoscopy Component Colonoscopy Component Was a colonoscopy performed during today's procedure?: Yes Recommended follow up colonoscopy of at least 10 years?: No If no, follow up colonoscopy recommended in ___ years?: 3 Reason for not recommending >/= 10 yr follow-up interval?: See above
[2023-10-27 09:10] VITALS: O2SAT 97
[2023-10-27 10:02] VITALS: BP 90/57; PULSE 68; RESP 18; TEMP 36.2; O2SAT 90
--- NOTE | 2023-10-27 10:02 | EXP.ANES.CKL ---
[facility] Disclaimer: The information contained in this section may have been updated after the patient was seen, as this information can be updated by other users. Medical History Smoker CRPS (complex regional pain syndrome type II) Adult hypothyroidism Surgical History History of knee replacement Hx of cholecystectomy H/O hernia repair Hx of appendectomy Family History Other Family history of cancer Social History Smoking Status: Current every day smoker tobacco type: cigarettes second hand exposure: No alcohol intake: never counseling provided: none substance use type: denies use current occupational status: employed Travel in the last 8 weeks: None household members: spouse housing: house [facility] Anesthesia Checklist Patient Identification Patient Identification: Verbal (Name & ) Structural Data Admitted From: Home Planned Operative Procedure/s: colonoscopy Consent for Planned Operative Procedure(s) Verified: Yes Additional verifications Anesthesia Reactions: No Hx Blood Transfusions: No Blood Transfusion Reaction: No Airway Assessment Mallampati Score:: Class II C-Spine Mobility Assessed: Yes TMJ Mobility Assessed: Yes Dentition: Good Dentition Neurological Assessment Level of Consciousness: Awake, Alert and Appropriate Anesthesia Plan Anesthesia Risk discussed: Yes Anesthesia Plan: Verified ASA Class: II Anesthesia Type: MAC
[2023-10-27 10:12] VITALS: BP 106/64; PULSE 64; RESP 18; O2SAT 98
[2023-10-27 10:22] VITALS: BP 102/62; PULSE 64; RESP 18; O2SAT 98
[2023-10-27 10:38] VITALS: BP 110/59; PULSE 55; RESP 18; O2SAT 97
== END 2023-10-27 10:39 | disposition home or self-care (01) ==
PROVIDERS: PCP Internal Medicine Adolescent Medicine; Visit Provider Surgery
PROC: 0DJD8ZZ Inspection of Lower Intestinal Tract, Via Natural or Artificial Opening Endoscopic (ICD-10-PCS; CPT 45380; principal; 2023-10-27 09:30)
DX: Z12.11 Encounter for screening for malignant neoplasm of colon (principal); K57.30 Diverticulosis of large intestine without perforation or abscess without bleeding; D12.7 Benign neoplasm of rectosigmoid junction; K64.8 Other hemorrhoids
CPT/HCPCS: 45380; J2704; J7120

== ENCOUNTER 2024-01-05 08:25 | Outpatient (POV) | payer BC, SELFPAY ==
--- NOTE | 2024-01-05 08:47 | A.OFFVIS_ITS ---
[facility] Disclaimer: The information contained in this section may have been updated after the patient was seen, as this information can be updated by other users. Medical History Smoker CRPS (complex regional pain syndrome type II) Adult hypothyroidism Surgical History History of knee replacement Hx of cholecystectomy H/O hernia repair Hx of appendectomy Family History Other Family history of cancer Social History Smoking Status: Current every day smoker tobacco type: cigarettes second hand exposure: No alcohol intake: never counseling provided: none substance use type: denies use current occupational status: employed Travel in the last 8 weeks: None household members: spouse housing: house PM Subjective & Objective Subjective Subjective:: Patient is a pleasant 63-year-old male who presents today for medication refill and follow-up. Today he rates his pain a 7 out of 10. He denies any new trauma or injury from his last visit. He does state that he did end up having additional testing to check his nerves including needling and EMG with no acute findings. Patient states that his doctor did mention about exploratory surgery however he does not want to proceed forward with that option. Patient has also been to see Dr. Sue in [place] and that he is scheduled for his next follow-up in a year. He does state that at that visit he did discuss about possibly adding Cymbalta and additional injection therapy. Patient does state that he is interested in continuing his pregabalin. Patient is currently managed to 100 mg at bedtime. He denies any side effects from this medication. He does state that he feels like he is adjusted to it and could use additional increase if possible. Patient is also managed with compounded cream however it did not do as well as he would have hoped. His Leonid has been reviewed and is appropriate. Review of Systems: General: No recent weight changes, no fever, no sleep disturbances Respiratory: No cough, no shortness of air, no recurring pulmonary infections Cardiovascular/peripheral vascular: No chest pain, no palpitations, no edema, no shortness of breath Gastrointestinal: No new onset incontinence, normal bowel movements reported Genitourinary: No new onset incontinence Musculoskeletal: Low back pain, knee pain Psychiatric: [Normal mood/affect] Neurological: [Denies weakness in extremities], [denies balance issues] Pain at rest (0-10 scale): 7 Objective Objective:: Physical Exam: General: Alert and oriented x3, no acute distress, pleasant and cooperative Lungs: Respirations even and unlabored, symmetrical chest expansion Eyes: PERRL Musculoskeletal: Flexion and extension of lumbar [spine] somewhat guarded secondary to pain, [antalgic gait noted] Neurological: Speech clear, no gross sensory deficit Has patient had previous pain injection?: No Conservative treatment options previously tried: Home exercise plan Length of treatment: Longer than 6 weeks Meds Home Medications and Allergies Home Medications ?Medication ?Instructions ?Recorded ?Confirmed ?Type levothyroxine 100 mcg tablet 100 mcg PO DAILY 02/21/23 10/23/23 History pregabalin 100 mg capsule 100 mg PO HS #90 caps 08/27/23 10/23/23 Rx pregabalin 100 mg capsule 100 mg PO HS #30 caps 12/11/23 Rx New Prescriptions to Start Prescriptions: Allergies Allergy/AdvReac Type Severity Reaction Status Date / Time Penicillins Allergy Intermediate I-HIVES Verified 10/27/23 08:40 Assessment and Plan *Assessment and plan (1) Left knee pain: Status: Acute Qualifiers: Chronicity: chronic Qualified Code(s): M25.562 - Pain in left knee; G89.29 - Other chronic pain Category: Medical Code(s): M25.562 - Pain in left knee (2) Lumbar radiculopathy: Status: Acute Category: Medical Code(s): M54.16 - Radiculopathy, lumbar region Plan I did discuss with the patient regarding the Cymbalta and he states that overall he does not feel like he has any depression issues. I did discuss with the patient in future we can always try this and that it is also used as medication for nerve pain. I did discuss with the patient we will increase his pregabalin 250 mg at bedtime and provide a 3-month supply of this medication. Patient was counseled that between visits if he needs us feel free to call for additional help for possible injection therapy. Patient agrees with this plan of care. Patient has been instructed to contact the clinic with any concerns before the next appointment. Dr. Bruce has reviewed this note and agrees with this plan of care. This note was dictated using voice recognition software and make contain errors or omissions. All injections are used with Lidocaine or Bupivacaine and Depo Medrol.
[2024-01-05 09:29] VITALS: BP 116/70; PULSE 60; RESP 18; O2SAT 96; BMI 25.7
== END 2024-01-05 23:59 | disposition home or self-care (01) ==
PROVIDERS: PCP Internal Medicine Adolescent Medicine; Visit Provider Nurse Practitioner Family
DX: M25.562 Pain in left knee (principal); G89.29 Other chronic pain; M54.16 Radiculopathy, lumbar region; Z96.653 Presence of artificial knee joint, bilateral; F17.210 Nicotine dependence, cigarettes, uncomplicated
CPT/HCPCS: 99212; G0463

== ENCOUNTER 2024-04-05 08:18 | Outpatient (POV) | payer BC, SELFPAY ==
--- NOTE | 2024-04-05 08:56 | EXP.PAIN.SOA ---
[facility] Disclaimer: The information contained in this section may have been updated after the patient was seen, as this information can be updated by other users. Medical History Smoker CRPS (complex regional pain syndrome type II) Adult hypothyroidism Surgical History History of knee replacement Hx of cholecystectomy H/O hernia repair Hx of appendectomy Family History Other Family history of cancer Social History Smoking Status: Current every day smoker tobacco type: cigarettes second hand exposure: No alcohol intake: never counseling provided: none substance use type: denies use current occupational status: other Travel in the last 8 weeks: None household members: spouse housing: house Have you lived/traveled outside US in past 30 days?: No Contact w/someone who lives/traveled outside US past 30 days?: No Exposure to someone with infectious disease in past 14 days?: No Do you have a fever (greater than 100.4 F or 38 C)?: No Have you tested positive for COVID-19: No Exposed to someone with COVID-19 in past 14 days?: No Do you have a sore throat?: No Do you have a cough?: No Do you have any weakness?: No Do you have any diarrhea?: No Are you experiencing any unusual bleeding?: No Do you have any muscle aches/pain?: No Do you have any abdominal pain?: No Are you experiencing loss of taste or smell?: No PM Subjective & Objective Subjective Subjective:: Patient is a pleasant 63-year-old male who presents today for 3-month follow-up and medication refills. Today he rates his pain a 7 out of 10. He denies any new trauma or injury. He does state that he continues to have the left knee pain that does radiate downwards into his lower leg. Patient had his total knee replacement and had issues with altered sensation and worsening nerve pain. Patient has been back to see Dr. Sue who did state that there is a possibility it returns within the next 2 years otherwise it is more likely to be permanent. Patient is currently managed with pregabalin 100 mg at night and compounded cream from our office. He denies any side effects from this medication. He states he has been using the pregabalin along with some Tylenol PM at night and it does seem like most nights it allows him to get about 6 hours of sleep. Leonid has been reviewed and is appropriate. Review of Systems: General: No recent weight changes, no fever, no sleep disturbances Respiratory: No cough, no shortness of air, no recurring pulmonary infections Cardiovascular/peripheral vascular: No chest pain, no palpitations, no edema, no shortness of breath Gastrointestinal: No new onset incontinence, normal bowel movements reported Genitourinary: No new onset incontinence Musculoskeletal: Left knee pain Psychiatric: [Normal mood/affect] Neurological: [Denies weakness in extremities], [denies balance issues] Pain at rest (0-10 scale): 7 Objective Objective:: Physical Exam: General: Alert and oriented x3, no acute distress, pleasant and cooperative Lungs: Respirations even and unlabored, symmetrical chest expansion Eyes: PERRL Musculoskeletal: Flexion and extension of left knee somewhat guarded secondary to pain, [antalgic gait noted] Neurological: Speech clear, no gross sensory deficit Has patient had previous pain injection?: No Conservative treatment options previously tried: Home exercise plan Length of treatment: Longer than 12 weeks Meds Home Medications and Allergies Home Medications ?Medication ?Instructions ?Recorded ?Confirmed ?Type levothyroxine 100 mcg tablet 100 mcg PO DAILY 02/21/23 01/05/24 History pregabalin 150 mg capsule 150 mg PO HS #90 caps 01/05/24 Rx New Prescriptions to Start Prescriptions: Allergies Allergy/AdvReac Type Severity Reaction Status Date / Time Penicillins Allergy Intermediate I-HIVES Verified 10/27/23 08:40 Assessment and Plan *Assessment and plan (1) Left knee pain: Status: Acute Qualifiers: Chronicity: chronic Qualified Code(s): M25.562 - Pain in left knee; G89.29 - Other chronic pain Category: Medical Code(s): M25.562 - Pain in left knee Plan I will refill the patient's pregabalin and provide a 3-month supply of this medication. Patient will return to clinic in 3 months for reevaluation of symptoms and plan of care. Patient has been instructed to contact the clinic with any concerns before the next appointment. Dr. Bruce has reviewed this note and agrees with this plan of care. This note was dictated using voice recognition software and make contain errors or omissions. All injections are used with Lidocaine, Bupivacaine and Depo Medrol. Occasionally urine drug screen is needed to verify patient's compliance with our office pain contract. This is ordered based off specific treatments related to chronic pain with the potential to abuse certain medications.
[2024-04-05 09:04] VITALS: BP 116/74; PULSE 68; RESP 18; O2SAT 100; BMI 28.2
== END 2024-04-05 23:59 | disposition home or self-care (01) ==
PROVIDERS: PCP Internal Medicine Adolescent Medicine; Visit Provider Nurse Practitioner Family
DX: M25.562 Pain in left knee (principal); G89.29 Other chronic pain; F17.210 Nicotine dependence, cigarettes, uncomplicated; Z96.652 Presence of left artificial knee joint
CPT/HCPCS: 99212; G0463

== ENCOUNTER 2024-07-01 08:40 | Outpatient (POV) | payer BC, SELFPAY ==
--- NOTE | 2024-07-01 09:02 | A.OFFVIS_ITS ---
[facility] Disclaimer: The information contained in this section may have been updated after the patient was seen, as this information can be updated by other users. Medical History Smoker CRPS (complex regional pain syndrome type II) Adult hypothyroidism Surgical History History of knee replacement Hx of cholecystectomy H/O hernia repair Hx of appendectomy Family History Other Family history of cancer Social History Smoking Status: Current every day smoker tobacco type: cigarettes second hand exposure: No alcohol intake: never counseling provided: none substance use type: denies use current occupational status: other Travel in the last 8 weeks: None household members: spouse housing: house PM Subjective & Objective Subjective Subjective:: Patient is a pleasant 63-year-old male who presents today for his 3-month follow-up and medication refill. Today he still rates his pain around a 7. He states he continues to have the chronic pain they are in his left knee and foot. Patient has tried both infrapatellar nerve blocks of the knee as well as a ankle block with only temporary relief. Patient has had his right knee replaced 3 times and his left knee replaced once by Dr. Sue. He is scheduled for a follow-up with that office in December. Patient is currently managed with pregabalin 150 mg at bedtime from our office and compounded cream. He states he does not use the compounded cream as frequently due to not noticing significant improvement. Patient has been tried on anti-inflammatories in the past including Celebrex, meloxicam and diclofenac. His Leonid has been reviewed and is appropriate. Review of Systems: General: No recent weight changes, no fever, no sleep disturbances Respiratory: No cough, no shortness of air, no recurring pulmonary infections Cardiovascular/peripheral vascular: No chest pain, no palpitations, no edema, no shortness of breath Gastrointestinal: No new onset incontinence, normal bowel movements reported Genitourinary: No new onset incontinence Musculoskeletal: Left knee pain, left ankle/foot pain Psychiatric: [Normal mood/affect] Neurological: [Denies weakness in extremities], [denies balance issues] Pain at rest (0-10 scale): 7 Objective Objective:: Physical Exam: General: Alert and oriented x3, no acute distress, pleasant and cooperative Lungs: Respirations even and unlabored, symmetrical chest expansion Eyes: PERRL Musculoskeletal: Flexion and extension of left knee somewhat guarded secondary to pain, [antalgic gait noted] Neurological: Speech clear, no gross sensory deficit Has patient had previous pain injection?: No Conservative treatment options previously tried: Prescription medications Length of treatment: Longer than 12 weeks Meds Home Medications and Allergies Home Medications ?Medication ?Instructions ?Recorded ?Confirmed ?Type levothyroxine 100 mcg tablet 100 mcg PO DAILY 02/21/23 04/05/24 History pregabalin 150 mg capsule 150 mg PO HS #90 caps 04/05/24 Rx New Prescriptions to Start Prescriptions: Allergies Allergy/AdvReac Type Severity Reaction Status Date / Time Penicillins Allergy Intermediate I-HIVES Verified 10/27/23 08:40 Assessment and Plan *Assessment and plan (1) Left knee pain: Status: Acute Qualifiers: Chronicity: chronic Qualified Code(s): M25.562 - Pain in left knee; G89.29 - Other chronic pain Category: Medical Code(s): M25.562 - Pain in left knee (2) Neuropathic pain of ankle: Status: Acute Category: Medical Code(s): M79.2 - Neuralgia and neuritis, unspecified (3) Lumbar radiculopathy: Status: Acute Category: Medical Code(s): M54.16 - Radiculopathy, lumbar region Plan I will refill the patient's pregabalin and provide a 6-month supply of this medication. Patient will return to clinic in 6 months for reevaluation of symptoms and plan of care. Patient has been instructed to contact the clinic with any concerns before the next appointment. Dr. Bruce has reviewed this note and agrees with this plan of care. This note was dictated using voice recognition software and make contain errors or omissions. All injections are used with Lidocaine, Bupivacaine and Depo Medrol. Occasionally urine drug screen is needed to verify patient's compliance with our office pain contract. This is ordered based off specific treatments related to chronic pain with the potential to abuse certain medications.
[2024-07-01 09:42] VITALS: BP 122/71; PULSE 73; RESP 14; O2SAT 97; BMI 28.2
== END 2024-07-01 23:59 | disposition home or self-care (01) ==
PROVIDERS: PCP Internal Medicine Adolescent Medicine; Visit Provider Nurse Practitioner Family
DX: M25.562 Pain in left knee (principal); G89.29 Other chronic pain; M79.2 Neuralgia and neuritis, unspecified; Z96.653 Presence of artificial knee joint, bilateral; F17.210 Nicotine dependence, cigarettes, uncomplicated
CPT/HCPCS: 99212; G0463

== ENCOUNTER 2025-01-05 18:55 | Observation (INO) | payer BC, SELFPAY ==
--- OUTSIDE RECORDS SUMMARY | 2024-06-19 17:30 | XMS_ITS ---
Author Organization [facility] Address [address] [place] [address] Care Team Providers Care Recreation Aide Name Role Phone Raymundo Tariq Primary Care Provider Raymundo Tariq Unavailable Unavailable Migration, Provider Unavailable Unavailable Allergies Allergen (clinical drug ingredient) Drug/Non Drug Allergy documented on EMR Reaction Allergy Type Onset Date Status penicillin G Penicillin G Potassium hives Drug Allergy Active REASON FOR VISIT Multum To Medispan Conversion Encounter Medications Medication SIG (Take, Route, Frequency, Duration) Notes Start Date End Date Status Vitamin D3 1250 MCG 1 CAP(S) ORALLY ONCE A WEEK; Duration: 90 DAYS *Please review and pick correct strength-formulatio n from [facility] options. If intended option is not shown, discontinue and re-order from Quick Search* 07/01/2023 Active PAXLOVID 150 MG-100 MG (300 MG-100 MG DOSE) 2 TABS ORALLY TWICE DAILY; Duration: 5 DAYS *Please review for potential replacement for e-prescription and drug interaction check* 11/11/2023 Active Pregabalin 100 MG 1 cap(s) orally once a day Active traMADol HCl 50 MG 1 tab(s) orally at night prn Active Levothyroxine Sodium 75 MCG 1 tab(s) orally once a day; Duration: 90 days Active Encounters Encounter Location Date Provider Diagnosis [facility] [address] [place] [address] 06/19/2024 Provider Migration Plan Of Treatment Medication Medication Name Sig Start Date Stop Date Notes Vitamin D3 1250 MCG 1 CAP(S) ORALLY ONCE A WEEK; Duration: 90 DAYS 07/01/2023 *[facility] and [facility] If intended option is not shown, discontinue and re-order from Quick Search* PAXLOVID 150 MG-100 MG (300 MG-100 MG DOSE) 2 TABS ORALLY TWICE DAILY; Duration: 5 DAYS 11/11/2023 *Please review for potential replacement for e-prescription and drug interaction check* Levothyroxine Sodium 75 MCG 1 tab(s) orally once a day; Duration: 90 days Progress Notes * ROSASCarlosneDOB: 2 (64 yo Other)Acc No.[id number]:06/19/2024 Patient: Davy PATEL Provider: Maira Harris :1960 A ge:63 Y S ex:Unknown Date:06/19/2024 Address:[address] [place] [address], [facility] [id number] Pcp:Raymundo Tariq Subjective: * Chief Complaints: * 1 . [facility]. * Medical History: * Medications: T aking traMADol HCl 50 MG Tablet 1 tab(s) orally at night prn , Taking Pregabalin 100 MG Capsule 1 cap(s) orally once a day * Allergies: P enicillin G Potassium: hives. Objective: * Vitals: Assessment: Plan: * Treatment: * * Electronic signature of Sonny del castillo Migration on 01/05/2025 at 07:13 PM EDT Sign off status: Pending * Provider: Maira Harris Date: 0 06/19/2024 Generated for Anyi cardoza/Danielito/Johanny on: 1 07:13 PM EDT
[2025-01-05] VITALS (9 sets, daily range): BP systolic 112–143; BP diastolic 62–84; PULSE 53–78; RESP 16–18; TEMP 36.5–37.1; O2SAT 95–99; BMI 28.2; BMI 28.3
--- NOTE | 2025-01-05 19:07 | ED_ITS ---
<Statement entered by Kaiden Contreras MD - 01/05/25 22:58> I was consulted by the KAREEN, and we discussed the complexity of the problems being addressed. I approved the treatment and management plan for this patient's care in the emergency department, thus performing a substantive portion of the medical decision making. Kaiden Contreras MD, ROBBI, FACEP Discharge Plan Disposition Patient Disposition: Admitted Clinical Impressions Clinical Impression: Constipation, Stercoral colitis Abdominal pain Qualifiers: Abdominal location: generalized Qualified Code(s): R10.84 - Generalized abdominal pain Discharge ED Provider: Kaiden Contreras General Adult HPI <TAWANDA Nj - Last Filed: 01/05/25 22:12> General Chief complaint: Abdominal Pain Stated complaint: constipated x 7 Time Seen by Provider: 01/05/25 19:07 Mode of Arrival: Ambulatory Source of Information: Patient Description of Symptoms (Recalled from ER Triage Doc. by RN): Pt presents for evaluation of constipation x 1 week. Pt states he is having abdominal pain that he rates as a 9/10. Denies N/V. Pt states this morning he was able to pass gas, however by the afternoon he has not been able to. Pt states he has attempted to take miralax. History of Present Illness HPI narrative: 64-year-old male presents to the emergency department accompanied by his spouse for a 8-day history of constipation, abdominal pain, obstipation since earlier today, new , decreased urination today, denies any fever chills chest pain nausea vomiting, denies any diarrhea, denies any hematuria melena hematochezia, hematemesis or hemoptysis, patient is a current everyday smoker, denies any alcohol use or other drug use, other past medical history is consistent with prior cholecystectomy prior appendectomy, hypothyroidism, neuropathy. Initial triage vitals unremarkable. Of note, patient has been utilizing MiraLAX [id number] with little to no relief of his symptomatology. Also attempted what sounds like performing direct rectal exam/disimpaction on himself with Vaseline . Also of note, patient states he takes Tylenol PM , nightly, this could be the cause of the patient's constipation. Please note that above description of symptoms, in this electronic medical record under categorization of recalled from ER triage doctor by RN are reflective of an initial nursing assessment, however, is not reflective of my full history and physical exam that was personally taken and clarified. Consequentially, this preceding description of symptoms, which may include the patient's categorized chief complaint in the EMR, do not reflect my personal clinical impression, and the ultimate description of history of present illness and patient stated complaints should be deferred to this section of the note. Unless stated otherwise or congruent with this section of the note, additional signs, symptoms, or incongruence should be interpreted as inaccurate with my clinical impression. Onset (ago): day(s) Related Data Home Medications ?Medication ?Instructions ?Recorded ?Confirmed levothyroxine 75 mcg tablet mcg PO 12/30/24 12/30/24 Previous Rx's ?Medication ?Instructions ?Recorded pregabalin 150 mg capsule 150 mg PO HS #30 caps Allergies Allergy/AdvReac Type Severity Reaction Status Date / Time Penicillins Allergy Intermediate I-HIVES Verified 12/30/24 08:54 [facility] <TAWANDA Nj - Last Filed: 01/05/25 22:12> [facility] Disclaimer: The information contained in this section may have been updated after the patient was seen, as this information can be updated by other users. Medical History Smoker CRPS (complex regional pain syndrome type II) Adult hypothyroidism Surgical History History of knee replacement bilat Hx of cholecystectomy H/O hernia repair Hx of appendectomy Family History Other Family history of cancer Social History Smoking Status: Current every day smoker tobacco type: cigarettes second hand exposure: No alcohol intake: never counseling provided: none substance use type: denies use current occupational status: other Travel in the last 8 weeks?: None household members: spouse housing: house Have you lived/traveled outside US in past 30 days?: No Contact w/someone who lives/traveled outside US past 30 days?: No Exposure to someone with infectious disease in past 14 days?: No Do you have a fever (greater than 100.4 F or 38 C)?: No Have you tested positive for COVID-19?: No Exposed to someone with COVID-19 in past 14 days?: No Do you have a sore throat?: No Do you have a cough?: No Do you have any weakness?: No Do you have any diarrhea?: No Are you experiencing any unusual bleeding?: No Do you have any muscle aches/pain?: No Do you have any abdominal pain?: No Are you experiencing loss of taste or smell?: No Other Medical History Have you received the Flu Vaccine for this season: Yes Have you received the Pneumonia Vaccine: Yes <TAWANDA Nj - Last Filed: 01/05/25 22:12> ROS Obtained: Yes All systems reviewed & no additional complaints except as documented Physical Exam <TAWANDA Nj - Last Filed: 01/05/25 22:12> General General appearance: alert and in no apparent distress Comment: Uncomfortable appearing male Head Head exam: atraumatic and normocephalic Eye Eye exam: Present PERRL and EOMI ENT ENT exam: Present mucous membranes moist Neck Neck exam: Present normal inspection Chest Chest inspection: Present normal inspection and symmetric chest wall rise Respiratory Respiratory exam: Present normal lung sounds bilaterally; Absent respiratory distress Cardiovascular Cardiovascular exam: Present regular rate and normal rhythm Abdominal Exam Abdominal exam: Present soft and tenderness; Absent guarding, rebound or rigidity Abdominal tenderness: Present diffuse and mild Extremities Exam Extremities exam: Present normal inspection Neurological Exam Neurological exam: Present alert and oriented X3 Psychiatric Psychiatric exam: Present normal affect Skin Skin exam: Present warm and dry Medical Decision Making <TAWANDA Nj - Last Filed: 01/05/25 22:12> Medical Records Medical records reviewed: Yes I reviewed the patient's medical records. Screening: Per USPSTF and CDC recommendations, given the prevalence of disease in our region, it is our hospital?s policy to screen for HIV and viral Hepatitis for all patients aged 18 and over and those with ongoing risk factors. Leonid Inquiry Pt receiving controlled substance: Yes Leonid was queried for this patient: No Reason not queried -: Emergent pt cond-no time Risks and benefits of using a controlled substance: were discussed with pt by me Vital Signs: 01/05/25 18:59 01/05/25 19:03 01/05/25 20:21 Temperature 98.2 F 98.8 F Temperature Source Temporal Artery Scan Pulse Rate 74 57 L Pulse Rate [Right] 78 Respiratory Rate 18 17 Blood Pressure 143/78 H 113/72 Blood Pressure [Right Arm] 131/76 Blood Pressure Mean [Right Arm] 94 Blood Pressure Source [Right Arm] Automatic Cuff Blood Pressure Position [Right Arm] Sitting 02 Sat by Pulse Oximetry 97 96 95 Oxygen Delivery Method Room Air Room Air 01/05/25 20:31 01/05/25 21:00 01/05/25 21:31 Temperature Temperature Source Pulse Rate 56 L 53 L 57 L Pulse Rate [Right] Respiratory Rate Blood Pressure 112/72 121/84 112/78 Blood Pressure [Right Arm] Blood Pressure Mean [Right Arm] Blood Pressure Source [Right Arm] Blood Pressure Position [Right Arm] 02 Sat by Pulse Oximetry 95 97 95 Oxygen Delivery Method 01/05/25 22:01 01/05/25 22:53 Temperature 98.7 F Temperature Source Pulse Rate 54 L 78 Pulse Rate [Right] Respiratory Rate 16 Blood Pressure 128/84 134/78 Blood Pressure [Right Arm] Blood Pressure Mean [Right Arm] Blood Pressure Source [Right Arm] Blood Pressure Position [Right Arm] 02 Sat by Pulse Oximetry 96 Oxygen Delivery Method Room Air Lab Data Lab results reviewed: Yes I reviewed the patient's lab results. Lab Results 01/05/25 19:19: WBC 9.6, RBC 4.89, Hgb 15.1, Hct 44.9, MCV 91.8, MCH 30.9, MCHC 33.6, RDW 14.8, Plt Count 245, MPV 9.5, Neut % (Auto) 69.0, Lymph % (Auto) 20.4, [place] % (Auto) 6.8, Eos % (Auto) 2.2, Baso % (Auto) 0.9, Neut # (Auto) 6.6, Lymph # (Auto) 2.0, [place] # (Auto) 0.7, Eos # (Auto) 0.2, Baso # (Auto) 0.1, Sodium 135 L, Potassium 4.1, Chloride 96 L, Carbon Dioxide 30, Anion Gap 13.1, BUN 13, Creatinine 1.20, Estimated Creat Clear 89, Estimated GFR 61, Est GFR ( Amer) 74, Glucose 104 H, Lactate 1.0, Calcium 9.2, Total Bilirubin 0.7, AST 44, ALT 17, Alkaline Phosphatase 66, Total Protein 8.8 H, Albumin 4.6, Globulin 4.2 H, Albumin/Globulin Ratio 1.1, Lipase 59 01/05/25 21:06: Urine Color Yellow, Urine Appearance Clear, Urine pH 6.0, Ur Specific [place] 1.015, Urine Protein Negative, Urine Glucose (UA) Negative, Urine Ketones Negative, Urine Blood Negative, Urine Nitrate Negative, Urine Bilirubin Negative, Urine Urobilinogen 0.2, Ur Leukocyte Esterase Negative, Urine RBC None, Urine WBC Occasional, Ur Squamous Epith Cells Occasional, Urine Bacteria Trace 01/05/25 19:19 01/05/25 19:19 Orders (Tests/Meds): ED MEDICATIONS Generic Name Dose Route Start Last Admin Trade Name Freq PRN Reason Stop Dose Admin Acetaminophen 650 mg 01/05/25 22:29 Acetaminophen 325mg Tab PO 02/04/25 22:28 Q4HP PRN Fever or Mild Pain (1-3) Docusate Sodium 250 mg 01/06/25 09:00 Docusate Sodium 250mg Capsule PO 02/05/25 08:59 DAILY O[facility] Enoxaparin Sodium 40 mg 01/06/25 09:00 Enoxaparin 40mg/0.4ml Syringe SUBCUT 02/05/25 08:59 DAILY [facility] Levofloxacin/Dextrose 750 mg in 150 mls @ 100 mls/hr 01/06/25 09:30 Levofloxacin 750mg/150ml Premix IV 01/16/25 09:29 Q24H OMAIRA Metronidazole 500 mg in 100 mls @ 100 mls/hr 01/06/25 06:00 Flagyl 500mg/100ml Ivpb IV 01/16/25 05:59 Q6H OMAIRA Sodium Chloride 1,000 mls @ 100 mls/hr 01/05/25 22:30 Sod Chlor 0.9% 1000ml Bag IV 02/04/25 22:29 .Q10H OMAIRA Ketorolac Tromethamine 30 mg 01/05/25 22:23 Ketorolac 30mg/Ml Vial IV 01/10/25 22:22 Q6HP PRN Moderate to severe pain Lactulose 20 gm 01/05/25 23:00 Lactulose 20gm/30ml Udc PO 02/04/25 22:59 BID OMAIRA Nicotine 21 mg 01/05/25 22:29 Nicotine 21mg/24hr Patch TD 02/04/25 22:28 DAILYP PRN Nicotine Cravings Ondansetron HCl 4 mg 01/05/25 22:29 Ondansetron 4mg/2ml Vial IV 02/04/25 22:28 Q8HP PRN Nausea Sennosides 17.2 mg 01/06/25 09:00 Senna 8.6mg Tablet PO 02/05/25 08:59 DAILY O[facility] Sodium Chloride 10 ml 01/05/25 20:05 01/05/25 20:05 Sodium Chloride 0.9% 10ml Syr (Rad Only) IV 02/04/25 20:04 10 ml NEEDED PRN Administration Maintain IV Site Discontinued Medications Generic Name Dose Route Start Last Admin Trade Name Freq PRN Reason Stop Dose Admin Cefepime HCl 1 gm/ Sodium 50 mls @ 100 mls/hr 01/05/25 21:56 01/05/25 22:56 Chloride IV 01/05/25 21:57 Infused ONCE ONE Infusion Metronidazole 500 mg in 100 mls @ 100 mls/hr 01/05/25 21:57 01/05/25 22:55 Flagyl 500mg/100ml Ivpb IV 01/05/25 22:56 Infused ONCE ONE Infusion Iopamidol 75 ml 01/05/25 20:05 01/05/25 20:05 Iopamidol-370 (76%);100ml Bottle IV 01/05/25 20:06 75 ml ONCE ONE Administration Morphine Sulfate 2 mg 01/05/25 19:17 01/05/25 19:32 Morphine 2mg/Ml Syringe IV 01/05/25 19:18 2 mg ONCE ONE Administration Ondansetron HCl 4 mg 01/05/25 19:17 01/05/25 19:32 Ondansetron 4mg/2ml Vial IV 01/05/25 19:18 4 mg ONCE ONE Administration Polyethylene Glycol/Electrolytes 2,000 ml 01/05/25 22:09 Peg-Electrolyte Soln 4000ml Bottle PO 01/05/25 22:10 ONCE ONE Sodium Phosphate 133 ml 01/05/25 21:57 01/05/25 22:07 Sodium Phos/Biphosphate Fleet 133ml Enema RC 01/05/25 21:58 133 ml ONCE ONE Administration ORDERS Category Date Time Status CT abdomen pelvis w con Stat Cat Scan 01/05/25 19:13 Completed XR chest portable Stat Exams 01/05/25 19:14 Completed Basic Metabolic Panel AMLAB Lab 01/06/25 06:00 Ordered Basic Metabolic Panel AMLAB Lab 01/07/25 06:00 Ordered Basic Metabolic Panel AMLAB Lab 01/08/25 06:00 Ordered Basic Metabolic Panel AMLAB Lab 01/09/25 06:00 Ordered Basic Metabolic Panel AMLAB Lab 01/10/25 06:00 Ordered Complete Blood Count Auto Diff AMLAB Lab 01/06/25 06:00 Ordered Complete Blood Count Auto Diff AMLAB Lab 01/07/25 06:00 Ordered Complete Blood Count Auto Diff AMLAB Lab 01/08/25 06:00 Ordered Complete Blood Count Auto Diff AMLAB Lab 01/09/25 06:00 Ordered Complete Blood Count Auto Diff AMLAB Lab 01/10/25 06:00 Ordered Complete Blood Count Auto Diff Stat Lab 01/05/25 19:19 Completed Comprehensive Metabolic Panel Stat Lab 01/05/25 19:19 Completed Lactic Acid Stat Lab 01/05/25 19:19 Completed Lipase Stat Lab 01/05/25 19:19 Completed Urinalysis and Microscopic Stat Lab 01/05/25 21:06 Completed Medical Decision Narrative: 64-year-old male presents the emergency department with constipation abdominal pain for 8 days, differential diagnose include but not limited to, bowel obstruction, ileus, pseudo colonic obstruction, volvulus, malignancy, gastroenteritis, constipation, colitis, fecal impaction, among others. I discussed this patient's case with the attending physician Dr. Contreras Will obtain basic laboratory studies, CT ab pelvis with contrast, chest x-ray, lactic acid lipase level urinalysis, and will give 2 mg IV morphine and 4 mg of Zofran for nausea and pain CBC is unremarkable Lipase in normal is, lactic acidosis is not appreciated, CMP is unremarkable. Urinalysis is unremarkable Microscopic analysis of the patient's urine is unremarkable. I reviewed the patient's CT abdomen pelvis with contrast along the corresponding radiologic report, large stool burden throughout the colon with stool distending the rectum which has inflammatory changes compatible with stercoral colitis. Will start IV cefepime 1 g, 500 mg IV Flagyl, and Fleet enema for stercoral colitis. I reviewed the patient's chest x-ray along the corresponding radiologic report, no acute findings. I discussed this patient's case with the hospitalist provider Krystian Pope APRN at approximately 10:08 PM, he is agree with current admission plan/treatment plan, for stercoral colitis, he would also like me to give the patient p.o. GoLytely for cleanout. Will give the patient 2000 mL p.o. GoLytely, I discussed need for admission with the patient family the bedside patient family agreed with the current admission plan/treatment plan. <Kaiden Contreras MD - Last Filed: 01/05/25 23:02> Vital Signs: 01/05/25 18:59 01/05/25 19:03 01/05/25 20:21 Temperature 98.2 F 98.8 F Temperature Source Temporal Artery Scan Pulse Rate 74 57 L Pulse Rate [Right] 78 Respiratory Rate 18 17 Blood Pressure 143/78 H 113/72 Blood Pressure [Right Arm] 131/76 Blood Pressure Mean [Right Arm] 94 Blood Pressure Source [Right Arm] Automatic Cuff Blood Pressure Position [Right Arm] Sitting 02 Sat by Pulse Oximetry 97 96 95 Oxygen Delivery Method Room Air Room Air 01/05/25 20:31 01/05/25 21:00 01/05/25 21:31 Temperature Temperature Source Pulse Rate 56 L 53 L 57 L Pulse Rate [Right] Respiratory Rate Blood Pressure 112/72 121/84 112/78 Blood Pressure [Right Arm] Blood Pressure Mean [Right Arm] Blood Pressure Source [Right Arm] Blood Pressure Position [Right Arm] 02 Sat by Pulse Oximetry 95 97 95 Oxygen Delivery Method 01/05/25 22:01 01/05/25 22:53 Temperature 98.7 F Temperature Source Pulse Rate 54 L 78 Pulse Rate [Right] Respiratory Rate 16 Blood Pressure 128/84 134/78 Blood Pressure [Right Arm] Blood Pressure Mean [Right Arm] Blood Pressure Source [Right Arm] Blood Pressure Position [Right Arm] 02 Sat by Pulse Oximetry 96 Oxygen Delivery Method Room Air Lab Data Lab Results 01/05/25 19:19: WBC 9.6, RBC 4.89, Hgb 15.1, Hct 44.9, MCV 91.8, MCH 30.9, MCHC 33.6, RDW 14.8, Plt Count 245, MPV 9.5, Neut % (Auto) 69.0, Lymph % (Auto) 20.4, [place] % (Auto) 6.8, Eos % (Auto) 2.2, Baso % (Auto) 0.9, Neut # (Auto) 6.6, Lymph # (Auto) 2.0, [place] # (Auto) 0.7, Eos # (Auto) 0.2, Baso # (Auto) 0.1, Sodium 135 L, Potassium 4.1, Chloride 96 L, Carbon Dioxide 30, Anion Gap 13.1, BUN 13, Creatinine 1.20, Estimated Creat Clear 89, Estimated GFR 61, Est GFR ( Amer) 74, Glucose 104 H, Lactate 1.0, Calcium 9.2, Total Bilirubin 0.7, AST 44, ALT 17, Alkaline Phosphatase 66, Total Protein 8.8 H, Albumin 4.6, Globulin 4.2 H, Albumin/Globulin Ratio 1.1, Lipase 59 01/05/25 21:06: Urine Color Yellow, Urine Appearance Clear, Urine pH 6.0, Ur Specific [place] 1.015, Urine Protein Negative, Urine Glucose (UA) Negative, Urine Ketones Negative, Urine Blood Negative, Urine Nitrate Negative, Urine Bilirubin Negative, Urine Urobilinogen 0.2, Ur Leukocyte Esterase Negative, Urine RBC None, Urine WBC Occasional, Ur Squamous Epith Cells Occasional, Urine Bacteria Trace Orders (Tests/Meds): ED MEDICATIONS Generic Name Dose Route Start Last Admin Trade Name Freq PRN Reason Stop Dose Admin Acetaminophen 650 mg 01/05/25 22:29 Acetaminophen 325mg Tab PO 02/04/25 22:28 Q4HP PRN Fever or Mild Pain (1-3) Docusate Sodium 250 mg 01/06/25 09:00 Docusate Sodium 250mg Capsule PO 02/05/25 08:59 DAILY [facility] Enoxaparin Sodium 40 mg 01/06/25 09:00 Enoxaparin 40mg/0.4ml Syringe SUBCUT 02/05/25 08:59 DAILY [facility] Levofloxacin/Dextrose 750 mg in 150 mls @ 100 mls/hr 01/06/25 09:30 Levofloxacin 750mg/150ml Premix IV 01/16/25 09:29 Q24H [facility] Metronidazole 500 mg in 100 mls @ 100 mls/hr 01/06/25 06:00 Flagyl 500mg/100ml Ivpb IV 01/16/25 05:59 Q6H OMAIRA Sodium Chloride 1,000 mls @ 100 mls/hr 01/05/25 22:30 Sod Chlor 0.9% 1000ml Bag IV 02/04/25 22:29 .Q10H [facility] Ketorolac Tromethamine 30 mg 01/05/25 22:23 Ketorolac 30mg/Ml Vial IV 01/10/25 22:22 Q6HP PRN Moderate to severe pain Lactulose 20 gm 01/05/25 23:00 Lactulose 20gm/30ml Udc PO 02/04/25 22:59 BID OMAIRA Nicotine 21 mg 01/05/25 22:29 Nicotine 21mg/24hr Patch TD 02/04/25 22:28 DAILYP PRN Nicotine Cravings Ondansetron HCl 4 mg 01/05/25 22:29 Ondansetron 4mg/2ml Vial IV 02/04/25 22:28 Q8HP PRN Nausea Sennosides 17.2 mg 01/06/25 09:00 Senna 8.6mg Tablet PO 02/05/25 08:59 DAILY OMA[facility]A Sodium Chloride 10 ml 01/05/25 20:05 01/05/25 20:05 Sodium Chloride 0.9% 10ml Syr (Rad Only) IV 02/04/25 20:04 10 ml NEEDED PRN Administration Maintain IV Site Discontinued Medications Generic Name Dose Route Start Last Admin Trade Name Freq PRN Reason Stop Dose Admin Cefepime HCl 1 gm/ Sodium 50 mls @ 100 mls/hr 01/05/25 21:56 01/05/25 22:56 Chloride IV 01/05/25 21:57 Infused ONCE ONE Infusion Metronidazole 500 mg in 100 mls @ 100 mls/hr 01/05/25 21:57 01/05/25 22:55 Flagyl 500mg/100ml Ivpb IV 01/05/25 22:56 Infused ONCE ONE Infusion Iopamidol 75 ml 01/05/25 20:05 01/05/25 20:05 Iopamidol-370 (76%);100ml Bottle IV 01/05/25 20:06 75 ml ONCE ONE Administration Morphine Sulfate 2 mg 01/05/25 19:17 01/05/25 19:32 Morphine 2mg/Ml Syringe IV 01/05/25 19:18 2 mg ONCE ONE Administration Ondansetron HCl 4 mg 01/05/25 19:17 01/05/25 19:32 Ondansetron 4mg/2ml Vial IV 01/05/25 19:18 4 mg ONCE ONE Administration Polyethylene Glycol/Electrolytes 2,000 ml 01/05/25 22:09 Peg-Electrolyte Soln 4000ml Bottle PO 01/05/25 22:10 ONCE ONE Sodium Phosphate 133 ml 01/05/25 21:57 01/05/25 22:07 Sodium Phos/Biphosphate Fleet 133ml Enema RC 01/05/25 21:58 133 ml ONCE ONE Administration ORDERS Category Date Time Status CT abdomen pelvis w con Stat Cat Scan 01/05/25 19:13 Completed XR chest portable Stat Exams 01/05/25 19:14 Completed Basic Metabolic Panel [facility] Lab 01/06/25 06:00 Ordered Basic Metabolic Panel AMLAB Lab 01/07/25 06:00 Ordered Basic Metabolic Panel AMLAB Lab 01/08/25 06:00 Ordered Basic Metabolic Panel AMLAB Lab 01/09/25 06:00 Ordered Basic Metabolic Panel AMLAB Lab 01/10/25 06:00 Ordered Complete Blood Count Auto Diff AMLAB Lab 01/06/25 06:00 Ordered Complete Blood Count Auto Diff AMLAB Lab 01/07/25 06:00 Ordered Complete Blood Count Auto Diff AMLAB Lab 01/08/25 06:00 Ordered Complete Blood Count Auto Diff AMLAB Lab 01/09/25 06:00 Ordered Complete Blood Count Auto Diff AMLAB Lab 01/10/25 06:00 Ordered Complete Blood Count Auto Diff Stat Lab 01/05/25 19:19 Completed Comprehensive Metabolic Panel Stat Lab 01/05/25 19:19 Completed Lactic Acid Stat Lab 01/05/25 19:19 Completed Lipase Stat Lab 01/05/25 19:19 Completed Urinalysis and Microscopic Stat Lab 01/05/25 21:06 Completed Critical Care <TAWANDA Nj - Last Filed: 01/05/25 22:12> Critical Care Time Critical Care Time: No <Kaiden Contreras MD - Last Filed: 01/05/25 23:02> Critical Care Time Critical Care Time: Yes Attestation: On 01/05/25, the high probability of a clinically significant, sudden or life threatening deterioration of the following system(s) required my full and direct attention, intervention and personal management. The time I documented below is in addition to time spent performing reported procedures but includes the following listed in this critical care notation. Total Time Total Critical Care Time: 35
--- NOTE | 2025-01-05 19:13 | CT_ITS ---
PROCEDURE INFORMATION: Exam: CT Abdomen And Pelvis With Contrast Exam date and time: 01/05/2025 8:03 PM Age: 64 years old Clinical indication: Abdominal pain; Additional info: Constipation x 8 days, abdominal pain TECHNIQUE: Imaging protocol: Computed tomography of the abdomen and pelvis with contrast. Radiation optimization: All CT scans at this facility use at least one of these dose optimization techniques: automated exposure control; mA and/or kV adjustment per patient size (includes targeted exams where dose is matched to clinical indication); or iterative reconstruction. Contrast material: ISOVUE; Contrast volume: 75 ml; Contrast route: IV; COMPARISON: CT ABDOMEN PELVIS W CON 12/06/2018 7:46 PM FINDINGS: Lungs: Dependent bilateral lung base opacities favor atelectasis. Liver: Normal. No mass. Gallbladder and biliary ducts: Normal. No calcified stones. No ductal dilation. Pancreas: Normal. No ductal dilation. Spleen: Normal. No splenomegaly. Adrenal glands: Normal. No mass. Kidneys and ureters: Left renal Bosniak 1 cystic lesion that is homogeneous and fluid density (-9-20 HU), no septations or calcifications, having damon smooth and thin. Measurement is 1.7 cm. No follow-up recommended. Stomach and bowel: Large stool burden throughout the colon with stool distending the rectum which has inflammatory changes compatible with stercoral colitis. Appendix: No evidence of appendicitis. Intraperitoneal space: Unremarkable. No free air. No significant fluid collection. Vasculature: Mild calcific atherosclerotic disease is scattered throughout the abdominal aorta without aneurysmal dilatation. Lymph nodes: Unremarkable. No enlarged lymph nodes. Urinary bladder: Unremarkable as visualized. Reproductive: Unremarkable as visualized. Bones/joints: Unremarkable. No acute fracture. Soft tissues: Normal. IMPRESSION: Large stool burden throughout the colon with stool distending the rectum which has inflammatory changes compatible with stercoral colitis. COMMENTS: Consistent with the [employer]'s Incidental Findings Committee white paper (J Am Marty Radiol 2018): Any incidental renal lesion less than 1 cm or classified as too small to characterize, or any incidental cystic renal lesion characterized as simple-appearing, is likely benign. No follow-up imaging is recommended for these lesions per consensus recommendations based on imaging criteria.
--- OUTSIDE RECORDS SUMMARY | 2025-01-05 19:13 | XMS_ITS | Clinical Summary ---
Author Organization [facility] Address [address] [place] [address] Care Team Providers Care Hosted Services Analyst Name Role Phone Cedrick Weston MD Primary Care Provider + [phone] Allergies Active Allergy Reactions Criticality Noted Date Comments Penicillins Rash Low 04/29/2022 Medications diphenhydrAMINE (BENADryl) 25 MG tablet Take by mouth. Active Social History Tobacco Use Types Packs/Day Years Used Date Smoking Tobacco: Every Day Cigarettes Smokeless Tobacco: Never Tobacco Cessation:Ready to Q uit: Not Asked; Counseling Given: Not Answered Sex and Gender Information Value Date Recorded Sex Assigned at Not on file Legal Sex Male 8:01 PM EDT Gender Identity Not on file Sexual Orientation Not on file Last Filed Vital Signs Vital Sign Reading Time Taken Comments Blood Pressure 96/66 04/29/2022 8:45 AM EST Pulse 67 04/29/2022 8:45 AM EST Temperature - - Respiratory Rate - - Oxygen Saturation - - Inhaled Oxygen Concentration - - Weight 95.2 kg (209 lb 14.1 oz) 04/29/2022 8:45 AM EST Height 188 cm (6' 2 ) 04/29/2022 8:45 AM EST Body Mass Index 26.95 04/29/2022 8:45 AM EST Plan of Treatment Health Maintenance Due Date Last Done Comments [facility]-Depression Screening 1961 [facility]-HIV Screening 1961 [facility]-Hepatitis C Screening 1961 [facility]-/Child/Adol SDOH Screenings 1961 [facility]- SDOH Screenings 09/26/1979 [facility]-Adult SDOH Screenings 09/26/1979 [facility]-DTaP,Tdap,and Td Vaccine s (1 - Tdap) 1980 CT Colonography 2006 Colonoscopy 2006 FIT-DNA 2006 FIT 2006 FOBT 2006 Sigmoidoscopy 2006 [facility]-Colorectal Cancer Screening 2006 [facility]-Pneumococcal Vaccine: 50 + Years (1 of 1 - PCV) 09/26/2011 [facility]-Zoster Vaccines (1 of 2) 09/26/2011 [id number] Vaccine (3 - season) 2024 07/12/2020, 06/14/2020 [facility]-Influenza Vaccine (#1) 2024 [facility]-RSV Vaccine: 60+ Years o r (1 - 1-dose 75+ series) 2036 [facility]-Obesity Intervention Completed 04/29/2022 HPV Vaccines Aged Out No longer eligi ble based on patient's age to complete this topic [facility]-HIB Vaccines Aged Out No longer e ligible based on patient's age to complete this topic [facility]-Hepatitis A Vaccines Aged Out No longer eligible based on patient's age to complete this topic [facility]-IPV Vaccines Aged Out No longer e ligible based on patient's age to complete this topic [facility]-Rotavirus Vaccines Aged Out No lo nger eligible based on patient's age to complete this topic Insurance [facility] Care Teams Hosted Services Analyst Relationship Specialty Start Date End Date Cedrick Weston MD [address] [facility] [address] [phone] [facility] - General 04/23/22
--- OUTSIDE RECORDS SUMMARY | 2025-01-05 19:13 | XMS_ITS | Clinical Summary ---
Author Organization [employer] ([place], [place], [place], [place]) Address [address] [place] [address] Care Team Providers Care Exceptional Children Teacher Assistant Name Role Phone [facility], Provider Not In The System MD Primary Care Provider Unavailable Social History Tobacco Use Types Packs/Day Years Used Date Smoking Tobacco: Never Assessed Food Insecurity Answer Date Recorded Food run out past 12 months Not on file 03/17 Food did not last past 12 months Not on file 04/04/2023 Employment Answer Date Recorded Help finding and keeping a job Not on file 0 04/04/2023 Family and Community Support Answer Brandon e Recorded Help with Day to Day Activities Not on file 04/04/2023 Feeling Lonely or Isolated Not on file 04/04 Educational Attainment Answer Date Saji rded Speak language other than [place] Citizen at home Not on file 04/04/2023 Want help with school or training Not on file 04/04/2023 Substance Use Answer Date Recorded Used prescription meds for non-medical reasons N ot on file 04/04/2023 Used illegal drugs past 12 months Not on file 04/04/2023 Sex and Gender Information Value Date Recorded Sex Assigned at Not on file Legal Sex Male 10:51 AM CDT Gender Identity Not on file Sexual Orientation Not on file Plan of Treatment Health Maintenance Due Date Last Done Comments CT Colonography 1961 Colonoscopy 1961 Colorectal Cancer Screening 1961 FOBT/FIT 1961 Fit-DNA (Cologuard) 1961 Sigmoidoscopy 1961 Depression Screening (12+) 1973 Tobacco Cessation Counseling and Screening (12+) 1973 HIV Screening 1976 Hepatitis C Screening 09/26/1979 DTAP/TDAP/TD VACCINES (1 - Tdap) 1980 Lipid Panel 1996 Pneumococcal 50+ years (1 of 1 - PCV) 09/26/2011 Shingles Vaccine (Zoster) (1 of 2) 09/26/2011 COVID-19 VACCINE (3 - season) 2024, 06/14/2020 Influenza Vaccine (#1) 2024 Respiratory Syncytial Virus (RSV) Adult or (1 - 1-dose 75+ series) 2036 Insurance [facility] [employer] Care Teams Exceptional Children Teacher Assistant Relationship Specialty Start Date End Date [facility], Provider Not In The System, [place] [address] PCP - General 05/28/22
--- OUTSIDE RECORDS SUMMARY | 2025-01-05 19:13 | XMS_ITS | Referral Summary ---
Author Organization [employer] ([place], [place], [place], [place]) Address [address] [place] [address] Care Team Providers Care Superintendent Mechanical Name Role Phone [facility], Provider Not In The System MD [...] Orientation Not on file Plan of Treatment Not on file Insurance BS [employer] Care Teams Superintendent Mechanical Relationship Specialty Start Date End Date [facility], Provider Not In The System, [place] [address] PCP - General 05/28/22
--- OUTSIDE RECORDS SUMMARY | 2025-01-05 19:13 | XMS_ITS | Patient Health Record ---
Author Organization [facility] Address [address] [place] [address] Care Team Providers Care Contract Manager Name Role Phone Raymundo Tariq Primary Care Provider [phone] Raymundo Tariq Unavailable Unavailable Migration, Provider Unavailable Unavailable Allergies Allergen (clinical drug ingredient) Drug/Non Drug Allergy documented on EMR Reaction Allergy Type Onset Date Status penicillin G Penicillin G Potassium hives Drug Allergy Active Reason For Referral No Information Medications Medication SIG (Take, Route, Frequency, Duration) Notes Start Date End Date Status Vitamin D3 1250 MCG 1 CAP(S) ORALLY ONCE A WEEK; Duration: 90 DAYS *Please review and pick correct strength-formulatio n from [employer] options. If intended option is not shown, [...] once a day; Duration: 90 days Active Social History Tobacco Use: Social History Observation Description Date Details (start date - stop date) Current Smoker NA - NA Smoking: Question Answer Notes Are you a: current every day smoker Additional Findings: Tobacco User Moderate cigar ette smoker (10-19 cigs/day) Problems Problem Type SNOMED Code ICD Code Onset Dates Problem Status W/U Status Risk Notes Problem Chronic pain (20788834) Other chronic pain (G89.29) Active confirmed Problem Ventricular bigeminy (74831545) Ventricular bigeminy (I49.8) Active confirmed Encounters Encounter Location Date Provider Diagnosis [facility] [address] [place] [address] 06/19/2024 Provider Migration Plan Of Treatment Pending Test Test Name Order Date Echocardiogram 06/30/2023 Insurance Providers Payer Name Payer Address Payer Phone Subscriber Number Group Number Insured Name Patient Relationship to Insured Coverage Start Date Coverage End Date [facility] [employer] [address] [place] [address] [id number] Davy Villarreal Self - patient is the insured Medical (General) History Medical History History ICD Code IBS Hypotension Irregular Heart Beat Pre-diabetes detected by 3M Screening Colonoscopy 11/07 with isolated hyperplas tic polyp Surgical History Surgery Date(Month/Year) Right Total Knee replacement x3 since 2017. Most recent surgery was 2022 Left Total Knee Replacement Nov 2022 Appendectomy Cholecystectomy Inguinal Hernia Repair
--- NOTE | 2025-01-05 19:14 | XR_ITS ---
PROCEDURE INFORMATION: Exam: XR Chest Exam date and time: 01/05/2025 8:07 PM Age: 64 years old Clinical indication: Shortness of breath; Additional info: SOA TECHNIQUE: Imaging protocol: Radiologic exam of the chest. Views: 1 view. COMPARISON: CT ABDOMEN PELVIS W CON 01/05/2025 8:03 PM FINDINGS: Lungs: Unremarkable. No consolidation. Pleural spaces: Unremarkable. No pleural effusion. No pneumothorax. Heart/Mediastinum: Unremarkable. No cardiomegaly. Bones/joints: Unremarkable. IMPRESSION: No acute findings.
--- OUTSIDE RECORDS SUMMARY | 2025-01-05 19:14 | XMS_ITS | Patient Health Record ---
Author Organization [facility] Address [address] [place] [id number] Care Team Providers Care Card Game Operator Name Role Phone Cedrick Weston Unavailable [phone] Allergies Allergen (clinical drug ingredient) Drug/Non Drug Allergy documented on EMR Reaction Allergy Type Onset Date Status Penicillin Unknown Drug Allergy Active Reason For Referral No Information Medications Medication SIG (Take, Route, Frequency, Duration) Notes Start Date End Date Status Gabapentin 300 MG 1 capsule Orally Two times a day; Duration: 30 day(s) Active Levothyroxine Sodium 100 MCG 1 tablet in the morning on an empty stomach Orally Once a day; Duration: 90 days 09/18/2022 Not-Celeste g Vitamin B-12 1000 MCG 1 tablet Orally On ce a day; Duration: 90 days 09/18/2022 Active Vitamin D (Ergocalciferol) 1.25 MG (18478 UT) 1 capsule Orally once a week 09/18/2022 Active traMADol HCl 50 MG 1 tablet as needed Orally Once a day Active oxyCODONE-Acetaminophen 5-325 MG 1 tablet as needed Orally every 6 hrs Active Immunizations Vaccine Route Administration Date Status Comme nts COVID 19 Moderna Unknown 06/14/2020 Administered COVID 19 Moderna Unknown 07/12/2020 Administered Fluzone Quad (6months&older) IM Intramuscular 02/03/2023 Administered Social History Tobacco Use: Social History Observation Description Date Details (start date - stop date) Current Smoker NA - NA CURRENT TOBACCO USE: Question Answer Notes Are you a: current smoker How often do you smoke cigarettes? every day How many cigarettes a day do you smoke? 6-10 Are you interested in quitting? Not ready to jeanette t Problems Problem Type SNOMED Code ICD Code Onset Dates Problem Status W/U Status Risk Notes Problem Otitis externa (3068002) Otitis externa (H60.90) Active confirmed Plan Of Treatment No Information Insurance Providers Payer Name Payer Address Payer Phone Subscriber Number Group Number Insured Name Patient Relationship to Insured Coverage Start Date Coverage End Date [employer] [address] [place] [address] [id number] SHAQ ROSAS Self - patient is the insured Medical (General) History Medical History History ICD Code 25 pack year smoking history as of 2021 osteoarthritis knees Surgical History Surgery Date(Month/Year) RT Knee Replacement, Dr. Castrejon LT Knee Replacement, Dr. Castrejon Hospitalization History Reason Date(Month/Year)
--- OUTSIDE RECORDS SUMMARY | 2025-01-05 19:14 | XMS_ITS | Data Portability ---
Author Organization [facility] Lita desai, [facility] Address [address] [facility] [address] [address] [facility] [address] [place] [address] Care Team Providers Care Oracle Database Architect Name Role Phone AUBRIE CASTREJON Referring Provider RAYMUNDO ALVARADO Primary Care Provider [phone] Assessment Encounter Date Assessment Date Assessment LastModified by Organization Details LastModified Time 11/10/2023 11/10/2023 Assessment: 1. 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 2. peroneal and tibial sensory distribution, there is partial sensation loss, unchanging since 2022 3. Partial 4+/5 left leg peroneal distribution weakness with partial foot drop Plan: 1. He states he is unchanged in the past year. 2. Walks with partial foot drop gait. 3. I do not think he needs an AFO. 4. Will schedule an EMG of distal left leg. [email or web address] Not available 11/14/2023 14:26:34 Plan of Treatment Reminders Order Date Submit Date Provider Last Modified By Organization Details Last Modified Time Details Appointments None record ed. Lab None record ed. Referral None record ed. Procedures None record ed. Surgeries None record ed. Imaging None record ed. Medication Orders None record ed. Patient TargetsNo targets recorded. Patient InstructionsNo instructions recorded. Reason for Referral None Reported. Results Created Date Observation Date Name Description Value Unit Range Abnormal Flag Note LastModifiedBy Organization Detail LastModifiedTime 11/20/19 24 11/20/2023 nerve condu ction study /EMG, lower extre mity (PROC ) No observ ation record ed. [email or web address] Georgia Burrell MD [address] [place], [address], 11/20/2023 11:22:49 Result Notes None recorded. Procedures Surgical History Date Name Laterality Status Provider Name and Address Organization Details Recorded Time 11/20/19 Electromyography (EMG) with Nerve Conduction Study (NCV) completed Gifty JudyyGary Bruce [facility] 11/20/2023 11:20:40 Knee arthroscopy/surgery completed Mary Ayaan [facility] 11/10/2023 10:54:13 Appendectomy completed Mary Ayaan [facility] 11/10/2023 10:54:22 Cholecystectomy completed Mary Ayaan [facility] 11/10/2023 10:54:28 umbilical hernioplasty completed Mary Ayaan [facility] 11/10/2023 10:54:36 Imaging Results None recorded. Procedure Notes None recorded. Medical Equipment None Reported. Allergies Allergen ID Allergen Name Allergen Category Reaction Reaction Severity Criticality Documentation Date Start Date Code Code System Note Provider Name and Address Organization Details Recorded Time 878270 Product containin g penicilli n (product) medicatio n rash Not available Not available 11/10/2023 95665 8001 SNOMED Mary Ayaan [facility] 4 10:53:06 Medications Name Sig Start Date Stop Date Status Note LastModified by Organization Details LastModified Time levothyroxin e 100 mcg tablet Take 1 tablet every day by oral route. active Not Available Not Available No t Available Tylenol Extra Strength 500 mg tablet Take 2 tablets every 6 hours by oral route as needed. active Not Available Not Available No t Available Benadryl Allergy 25 mg tablet Take 1 tablet every 4 hours by oral route as needed. active Not Available Not Available No t Available pregabalin 100 mg capsule Take 1 capsule every day by oral route at bedtime. active Not Available Not Available No t Available Vitamin C active Not Available Not Nara ilable Not Available levothyroxin e 11/09 completed Not Available Not Available Not Available vitamin B complex active Not Available Not Available Not Available Vitamin D3 active Not Available Not Av ailable Not Available Vitals Date Recorded Body weight Body mass index (BMI) Body height Heart rate Oxygen saturation Oxygen saturation in Arterial blood by Pulse oximetry Systolic And Diastolic Provider Name and Address Organization Details Last Updated DateTime 4 04042.9 9 g 27.1 kg/m2 187.96 cm 70 /min 97 % 97 % 106/70 mm[Hg] Mary Kuo [facility] 10:58:46 Social History Question Answer Notes LastModified by Organizat ion Details LastModified Time Tobacco Smoking Status Current Every Day Smoker Mary askew, [facility] 11/10/2023 10:53:47 What Was The Date Of Your Most Recent Tobacco Screening? 11/10/2023 Information not available 11/10/2023 At What Age Did You Start Smoking Tobacco? 26 Information not available 11/10/2023 How Much Tobacco Do You Smoke? 0.5 PPD Information not available 11/10/2023 Sex: Male Functional Status None recorded. Mental Status None recorded. Family History Relationship Description Onset Age of this Age Resolved Age Notes LastModified by Organization Details LastModified Time Mother Family history of malignant neoplasm Not available 2023 10:57:07 Medical History No medical history recorded. Past Encounters Encounter ID Performer Location Encounter Start Date Encounter Closed Date Diagnosis/Indication Diagnosis SNOMED-CT Code Diagnosis ICD10 Code Diagnosis IMO Codes Diagnosis Note [id number] GEORGIA BURRELL MD [facility] [address] [place] [address] [phone] 11/10/2023 10:36:26 11/15/2023 04:17:59 Left foot drop 8606416059 53522 M21.372 Weakness o f left lower limb 5294623014 42894 M62.81 Numbness o f lower limb 652175220 R20.0 [id number] GEORGIA BURRELL MD NEUROLOGY [facility] [address] [place] [address] [phone] 1 11/20/2023 09:43:18 11/21/2023 06:46:18 Paresthesia of lower extremity 590877428 R20.2 Skin sensa tion disturbance 91876626 R20.9 Left foot drop 399130820 1 99493 M21.372 Health Concerns Section Related Observation LastModified by Organization Detai ls LastModified Time None Recorded Concern Status LastModified by Organization Details LastModified Time None Recorded Advance Directives Directive None Recorded Payers Insurance Date Sequence Insurance Name Policy Number Policy Draper Covered Member ID Draper Member ID Guarantor Name 11/17/2023 1 [employer] [id number] Davy Pereyrakins [id number] Davy Villarreal Notes Date Note Type Note Provider Name and Address Organization Details Recorded Time 11/10/2023 text/html ROS as noted in the HPI Initial consult for foot drop at the request of Dr. Aubrie Castrejon63 year old male from [place]. Presents with Janet. PCP: Dr. Raymundo Alvarado Pt is s/p left total knee replacement in november of 2022. He reports since then, he has had numbness below his knee from knee to ankle. He does have some difficulty ambulating and feels he has drop foot. He has previously received injections in his back with minimal improvement His knee has otherwise been doing well since surgery. GEORGIA BURRELL MD [facility] [place], [address], [facility] 11/14/2023 14:28:13
[2025-01-05 19:30] LABS: Hematocrit 44.9 % (42.0-52.0); Hemoglobin 15.1 g/dL (14.1-18.0); Immature Granulocytes % 0.7 %; Mean Corpuscular HGB Conc 33.6 g/dL (31.8-35.4); Mean Corpuscular Hemoglobin 30.9 pg (27.0-31.2); Mean Corpuscular Volume 91.8 fl (80-94); Nucleated Red Blood Cells % 0 %; Platelet Count 245 K/mm3 (142-424); Red Blood Count 4.89 M/mm3 (4.60-6.20); Red Cell Distribution Width-SD 50.1 fL; White Blood Count 9.6 K/mm3 (4.8-10.8)
[2025-01-05] MEDS: MORPHINE 2MG/ML SYRINGE 2 MG IV (19:32)
[2025-01-05] MEDS: ONDANSETRON 4MG/2ML VIAL 4 MG IV (19:32)
[2025-01-05 19:46] LABS: Albumin Level 4.6 g/dl (3.5-5.0); Chloride 96 mmol/L (98-107); Sodium 135 mmol/L (136-145)
[2025-01-05 19:47] LABS: Potassium 4.1 mmoL/L (3.5-5.1)
[2025-01-05 19:49] LABS: Alanine Aminotransferase 17 U/L (12-78); Alkaline Phosphatase 66 U/L (38-126); Anion Gap 13.1 mEq/L (5-15); Aspartate Amino Transferase 44 U/L (17-59); Bilirubin,Total 0.7 mg/dl (0.2-1.3); Blood Urea Nitrogen 13 mg/dl (9-20); Carbon Dioxide 30 mmol/L (22.0-30.0); Creatinine Clearance Estimated 89 mL/min (50-200); Creatinine,Serum 1.20 mg/dl (0.66-1.25); Estimated Glomerular Filt Rate 61 ml/min (>60); GFR (African American) 74 ML/MIN (>60)
[2025-01-05 19:50] LABS: Albumin/Globulin Ratio 1.1 (1.1-1.8); Calcium 9.2 mg/dl (8.4-10.2); Globulin 4.2 g/dL (1.3-3.2); Glucose 104 mg/dl (74-100); Lipase 59 U/L (23-300); Total Protein,Serum 8.8 g/dl (6.3-8.2)
[2025-01-05] MEDS: SODIUM CHLORIDE 0.9% 10ML SYR (RAD ONLY) 10 ML IV (20:05)
[2025-01-05] MEDS: IOPAMIDOL-370 (76%);100ML BOTTLE 75 ML IV (20:05)
[2025-01-05 21:16] LABS: Microscopic, Urine URINE MICROSCOPIC (MICROSCOPIC)
[2025-01-05 21:18] LABS: Bilirubin,Urine Negative (Negative); Color,Urine YELLOW (Yellow); Glucose,Urine (UA) Negative (Negative); Ketones,Urine Negative (Negative); Leukocyte Esterase,Urine Negative (Negative); PH,Urine 6.0 (5.0-8.5); Protein,Urine Negative (Negative); Specific Gravity, Urine 1.015 (1.005-1.030); Urobilinogen,Urine 0.2 EU/dl (0.2)
[2025-01-05 21:27] LABS: Squamous Epithelial Cell,Urine Occasional #/hpf (0-5); WBC,Urine Occasional #/hpf (0-3)
[2025-01-05 21:28] LABS: Bacteria,Urine Trace /lpf
[2025-01-05] MEDS: METRONIDAZ/SOD CHL 500 MG/100 ML PIGGYBACK 100 MG IV (22:06)
[2025-01-05] MEDS: SODIUM PHOS/BIPHOSPHATE FLEET 133ML ENEMA 133 ML RC (22:07)
[2025-01-05] MEDS: CEFEPIME HCL 1 GM in 0.9 % SODIUM CHLORIDE 50 ML IV (22:33)
--- NOTE | 2025-01-05 22:43 | PC.NURSE ---
Report called Heather GUTIÉRREZ
--- NOTE | 2025-01-05 22:44 | PC.NURSE ---
Vikas GUTIÉRREZ call report to Francesco GUTIÉRREZ. Pt is being admitted to room 218 from the ER. FRANCESCO IRENE RN
--- NOTE | 2025-01-05 22:53 | PC.NURSE ---
Patient bowel movement at 2253
--- NOTE | 2025-01-05 22:57 | P.HP_ITS ---
<Statement entered by Zhen Altamirano MD - 01/07/25 12:56> Agree with plan of care as outlined by the JEWEL SETTER. History of Present Illness *Admission Date: 01/05/25 *Reason for visit:: Abdominal pain *History of present illness: This is a 64-year-old male who has a past medical history significant for neuropathy and hypothyroidism who presents with a chief complaint of no bowel movement in 8 days with abdominal pain. Due to patient's symptoms, presen tk to the emergency room for evaluation. While in emergency room, CT scan of the abdomen pelvis revealed a large stool burden throughout the colon with the stool distending the rectum which has inflammatory changes compatible with sterile colitis. Due to these findings, patient has been admitted for further management. During my evaluation of the patient, patient states that he has been having 8 days of no bowel movement. He reports diffuse abdominal pain and decreased urination started today. He has been taking MiraLAX on a regular occasion without any relief of his symptoms. Moreover, patient states he takes Tylenol PM nightly to help him sleep. Patient reports he also tried to manually disimpact himself without any success. Patient is reporting no decrease in his appetite or any early satiety. He is currently denying any chest pain, lightheadedness, dizziness, fever, chills, rigors, nausea, vomiting, or diarrhea. Additional pertinent labs obtained include a sodium of 135, chloride of 96, blood glucose 104, and total protein 8.8. [facility] Disclaimer: The information contained in this section may have been updated after the patient was seen, as this information can be updated by other users. Medical History Smoker CRPS (complex regional pain syndrome type II) Adult hypothyroidism Surgical History History of knee replacement bilat Hx of cholecystectomy H/O hernia repair Hx of appendectomy Family History Other Family history of cancer Social History Smoking Status: Current every day smoker tobacco type: cigarettes second hand exposure: No alcohol intake: never counseling provided: none substance use type: denies use current occupational status: other Travel in the last 8 weeks?: None household members: spouse housing: house Have you lived/traveled outside [place] in past 30 days?: No Contact w/someone who lives/traveled outside US past 30 days?: No Exposure to someone with infectious disease in past 14 days?: No Do you have a fever (greater than 100.4 F or 38 C)?: No Have you tested positive for COVID-19?: No Exposed to someone with COVID-19 in past 14 days?: No Do you have a sore throat?: No Do you have a cough?: No Do you have any weakness?: No Do you have any diarrhea?: No Are you experiencing any unusual bleeding?: No Do you have any muscle aches/pain?: No Do you have any abdominal pain?: No Are you experiencing loss of taste or smell?: No Other Medical History Have you received the Flu Vaccine for this season: Yes Have you received the Pneumonia Vaccine: Yes Review of Systems Review of Systems Review of systems:: pertinent systems reviewed and negative unless documented below Constitutional Constitutional: Reports system reviewed and no additional complaints, except as documented Eyes Eyes: Reports system reviewed and no additional complaints, except as documented ENT Ears, Nose, Mouth, and Throat: Reports system reviewed and no additional complaints, except as documented *Cardiovascular Cardiovascular: Reports system reviewed and no additional complaints, except as documented *Respiratory Respiratory: Reports system reviewed and no additional complaints, except as documented *Gastrointestinal Gastrointestinal: Reports abdominal pain, Reports change in stool character and Reports constipation *Genitourinary Genitourinary: Reports oliguria *Musculoskeletal Musculoskeletal: Reports system reviewed and no additional complaints, except as documented Integumentary/Breasts Skin/Breast: Reports system reviewed and no additional complaints, except as documented *Neurologic Neurologic: Reports system reviewed and no additional complaints, except as documented Psychiatric Psychiatric: Reports system reviewed and no additional complaints, except as documented Endocrine Endocrine: Reports system reviewed and no additional complaints, except as documented Hematologic/Lymphatic Hematologic/Lymphatic: Reports system reviewed and no additional complaints, except as documented Allergic/Immunologic Allergic/Immunologic: Reports system reviewed and no additional complaints, except as documented Meds Home Medications and Allergies Home Medications ?Medication ?Instructions ?Recorded ?Confirmed ?Type levothyroxine 75 mcg tablet mcg PO 12/30/24 12/30/24 H istory pregabalin 150 mg capsule 150 mg PO HS #30 caps 12/30/24 Rx New Prescriptions to Start Prescriptions: Allergies Allergy/AdvReac Type Severity Reaction Status Date / Time Penicillins Allergy Intermediate I-HIVES Verified 12/30/24 08:54 Exam Data for Last 24 hours Vital signs and Labs for Last 24 Hours: Temp Pulse Resp BP Pulse Ox O2 Del Method 98.7 F 78 16 134/78 96 Room Air 01/05/25 22:53 01/05/25 22:53 01/05/25 22:53 01/05/25 22:53 01/05/25 22:01 01/05/25 22:53 Laboratory Results - last 24 hr 01/05/25 19:19: WBC 9.6, RBC 4.89, Hgb 15.1, Hct 44.9, MCV 91.8, MCH 30.9, MCHC 33.6, RDW 14.8, Plt Count 245, MPV 9.5, Neut % (Auto) 69.0, Lymph % (Auto) 20.4, [place] % (Auto) 6.8, Eos % (Auto) 2.2, Baso % (Auto) 0.9, Neut # (Auto) 6.6, Lymph # (Auto) 2.0, [place] # (Auto) 0.7, Eos # (Auto) 0.2, Baso # (Auto) 0.1, Sodium 135 L, Potassium 4.1, Chloride 96 L, Carbon Dioxide 30, Anion Gap 13.1, BUN 13, Creatinine 1.20, Estimated Creat Clear 89, Estimated GFR 61, Est GFR ( Amer) 74, Glucose 104 H, Lactate 1.0, Calcium 9.2, Total Bilirubin 0.7, AST 44, ALT 17, Alkaline Phosphatase 66, Total Protein 8.8 H, Albumin 4.6, Globulin 4.2 H, Albumin/Globulin Ratio 1.1, Lipase 59 01/05/25 21:06: Urine Color Yellow, Urine Appearance Clear, Urine pH 6.0, Ur Specific [place] 1.015, Urine Protein Negative, Urine Glucose (UA) Negative, Urine Ketones Negative, Urine Blood Negative, Urine Nitrate Negative, Urine Bilirubin Negative, Urine Urobilinogen 0.2, Ur Leukocyte Esterase Negative, Urine RBC None, Urine WBC Occasional, Ur Squamous Epith Cells Occasional, Urine Bacteria Trace I & O for Last 24 hours: Intake & Output 01/02/25 01/03/25 01/04/25 01/05/25 23:59 23:59 23:59 23:59 Intake Total 150 / 150 Balance 150 / 150 Weight 99.79 kg Constitutional Constitutional: no acute distress and cooperative *Routine HEENT Exam Head: Present normocephalic and atraumatic Eye: Present EOMI and PERRL ENT: Present mucous membranes moist *Routine Neck Exam Neck: Present supple, full ROM and trachea midline *Routine Respiratory Exam Respiratory: Present normal respiratory effort, able to speak in complete sentences and symmetric chest movement *Routine Cardiovascular Exam Cardiovascular: Present RRR, Normal S1 and Normal S2 *Routine Abdominal Exam Abdominal: Present tenderness and distended *Routine Rectal Exam Rectal:: deferred *Routine Genitalia Exam Genitalia:: deferred *Routine Extremities Exam Extremities: Present full ROM, pulses intact and normal capillary refill Routine Back/Spine/Pelvis Exam Back/Spine: Present full ROM *Routine Skin Exam Skin: Present intact, dry and warm *Routine Neurological Exam Neurological: Present alert, oriented X3, CN II-XII intact, moving all extremities and normal speech Routine Psychiatric Exam Psychiatric: Present normal affect, normal thought process, cooperative, good insight and good judgment H&P: Result Impressions 64 who presents with a 8-day history of no bowel movement with imaging showing large stool burden and potential stercoral colitis. Assessment and Plan *Assessment and plan (1) Stercoral colitis: Status: Acute Category: Medical Code(s): K52.89 - Other specified noninfective gastroenteritis and colitis (2) Obstipation: Status: Acute Category: Medical Code(s): K59.00 - Constipation, unspecified (3) Abdominal pain: Status: Acute Qualifiers: Abdominal location: generalized Qualified Code(s): R10.84 - Generalized abdominal pain Category: Medical Code(s): R10.9 - Unspecified abdominal pain Plan Assessment: Stercoral colitis Obstipation Abdominal pain - Patient is denying any chronic opioid use; however, he is prescribed Lyrica which has some associated adverse reaction of constipation - Will hold this medication for now - Since there is potential sterile colitis seen on imaging, we will continue to treat empirically with IV antibiotics - Obtain procalcitonin in a.m. - 750 mg levofloxacin IV daily - 500 mg of Flagyl IV every 6 hours - Will initiate the following bowel regiment: GoLytely (patient should consume as much as he can tolerate), 20 mg of lactulose p.o. twice daily (will be given into patient has healthy bowel movement), 250 mg of Colace p.o. daily, soapsuds enemas every 6 x 3, and Senokot p.o. daily. The more of these interventions the patient is able to tolerate, the more successful we will be in achieving a healthy bowel movement. -Hopefully we can promote a healthy bowel movement and minimize any occurrence of perforation of the colon - If no improvement, will consider GI consultation for potential flex sigmoidoscopy-hopefully patient will have a bowel movement that is adequate - Will avoid opioids Plan: Admit patient to the MedSurg unit Activity as tolerated Regular diet CBC/BMP daily 40 mg Lovenox subcu daily for DVT prophylaxis 21 mg nicotine patch daily 4 mg Zofran IV push. Hours pain as above Full code I will discussed this case with attending physician Dr. Altamirano and I look forward to more input
[2025-01-05] MEDS: PEG-ELECTROLYTE SOLN 4000ML BOTTLE 2000 ML PO (23:35)
[2025-01-05] MEDS: 0.9 % SODIUM CHLORIDE 1000ML 1,000 ML 100 ML IV (23:48)
[2025-01-06 04:00] VITALS: BP 99/64; PULSE 50; RESP 17; TEMP 36.4; O2SAT 95; BMI 28.3
[2025-01-06 06:16] LABS: Hematocrit 40.5 % (42.0-52.0); Hemoglobin 13.7 g/dL (14.1-18.0); Immature Granulocytes % 0.5 %; Mean Corpuscular HGB Conc 33.8 g/dL (31.8-35.4); Mean Corpuscular Hemoglobin 30.9 pg (27.0-31.2); Mean Corpuscular Volume 91.4 fl (80-94); Nucleated Red Blood Cells % 0 %; Platelet Count 210 K/mm3 (142-424); Red Blood Count 4.43 M/mm3 (4.60-6.20); Red Cell Distribution Width-SD 50.0 fL; White Blood Count 9.7 K/mm3 (4.8-10.8)
[2025-01-06 06:32] LABS: Chloride 99 mmol/L (98-107)
[2025-01-06 06:33] LABS: Potassium 3.9 mmoL/L (3.5-5.1); Sodium 134 mmol/L (136-145)
[2025-01-06 06:36] LABS: Anion Gap 11.9 mEq/L (5-15); Blood Urea Nitrogen 10 mg/dl (9-20); Calcium 8.3 mg/dl (8.4-10.2); Carbon Dioxide 27 mmol/L (22.0-30.0); Creatinine Clearance Estimated 107 mL/min (50-200); Creatinine,Serum 0.90 mg/dl (0.66-1.25); Estimated Glomerular Filt Rate 85 ml/min (>60); GFR (African American) 103 ML/MIN (>60); Glucose 105 mg/dl (74-100)
--- NOTE | 2025-01-06 06:58 | PC.NURSE ---
at 0200 am pt received a SS enema. Results was about 7 small pieces of formed stool and rest was colored water. Patient tolerated well. FRANCESCO IRENE RN
[2025-01-06 07:43] VITALS: BP 106/68; PULSE 53; RESP 16; TEMP 36.6; O2SAT 95
[2025-01-06] MEDS: METRONIDAZ/SOD CHL 500 MG/100 ML PIGGYBACK 100 MG IV (08:26)
[2025-01-06] MEDS: BISACODYL 5MG TABLET 10 MG PO (08:27)
[2025-01-06] MEDS: DOCUSATE SODIUM 250MG CAPSULE 250 MG PO (08:28)
[2025-01-06] MEDS: SENNA 8.6MG TABLET 17.2 MG PO (08:29)
[2025-01-06 08:45] VITALS: O2SAT 95
[2025-01-06] MEDS: LEVOFLOXACIN/D5W 750 MG/150 ML 750 MG/150 ML PIGGYBACK 100 MG IV (09:45)
[2025-01-06 10:48] LABS: Procalcitonin 0.033 ng/mL (0.0-2.0)
[2025-01-06 11:35] LABS: Thyroid Stimulating Hormone 118.00 uIU/mL (0.465-4.68)
[2025-01-06 12:20] LABS: Free T4 (Free Thyroxine) 0.08 ng/dl (0.78-2.19)
[2025-01-06] MEDS: 0.9 % SODIUM CHLORIDE 1000ML 1,000 ML 100 ML IV (12:25)
--- NOTE | 2025-01-06 15:06 | P.DS_ITS ---
<Statement entered by Zhen Altamirano MD - 01/07/25 12:53> Agree with plan of care as outlined by the HOT ROOM ATTENDANT. Will need close follow-up with PCP to further manage significant hypothyroidism. General Admission date:: 01/05/25 Discharge date: 01/06/25 HPI HPI HPI: This is a 64-year-old male who has a past medical history significant for neuropathy and hypothyroidism who presents with a chief complaint of no bowel movement in 8 days with abdominal pain. Due to patient's symptoms, presented to the emergency room for evaluation. While in emergency room, CT scan of the abdomen pelvis revealed a large stool burden throughout the colon with the stool distending the rectum which has inflammatory changes compatible with sterile colitis. Due to these findings, patient has been admitted for further management. During my evaluation of the patient, patient states that he has been having 8 days of no bowel movement. He reports diffuse abdominal pain and decreased urination started today. He has been taking MiraLAX on a regular occasion without any relief of his symptoms. Moreover, patient states he takes Tylenol PM nightly to help him sleep. Patient reports he also tried to manually disimpact himself without any success. Patient is reporting no decrease in his appetite or any early satiety. He is currently denying any chest pain, lightheadedness, dizziness, fever, chills, rigors, nausea, vomiting, or diarrhea. Additional pertinent labs obtained include a sodium of 135, chloride of 96, blood glucose 104, and total protein 8.8. Hospital Course Hospital Course Hospital Course: Mr. Villarreal is a 64-year-old male who presented yesterday to the emergency depa rtment with constipation for approximately 10 days and abdominal pain. He has a primary medical history of hypothyroid, constipation, and back pain. He denied nausea and vomiting, and states he is able to pass gas. Workup in the emergency department was significant for CT showing large stool burden throughout the colon with stool distending the rectum which has inflammatory changes compatible with stercoral colitis. Patient continued to deny fever, chills, chest pain, shortness of breath. CBC, lipase, CMP all unremarkable. Urinalysis unremarkable. Patient was given cefepime 1 g, Flagyl 500 mg, and a Fleet enema in the ED. The case was discussed with hospital medicine, who agreed to admit the patient. Plan of care as follows: #Obstipation #Abdominal pain #Stercoral colitis ? Patient was admitted to the medical surgical floor yesterday evening and was given GoLytely, lactulose, enemas for his constipation. Patient was able to have multiple, large bowel movements. He felt much better after having his bowel movements. Denied abdominal pain. Patient discharged home on Flagyl 500 mg every 8 hour and Levaquin 750 mg daily to complete a 5-day total course for colitis. ? Patient does state that he feels he has a history of IBS, recommendations to follow-up with GI. Patient not interested in following with GI at this time. States he will continue his MiraLAX regimen and be more conscientious of his diet at home. ? CBC and CMP today of discharge unremarkable. #Hypothyroidism ? Patient states he has a history of hypothyroid, TSH during admission 118, free T4 0.08. Patient states he has not had a TSH checked in approximately 3 years, and he often misses doses of his Synthroid. He does state that he takes Synthroid on empty stomach in the morning. Discussed increasing dose of Synthroid to 125 mcg daily. Instructed patient to take alone on an empty stomach in the morning. Patient should follow-up in 4 to 6 weeks with PCP for repeat TSH and free T4 check. I believe correcting his TSH will help with his constipation as well. Continue Lyrica 100 mg at bedtime. Total time spent on discharge 32 minutes in counseling, documentation, chart review, and direct care with patient. Exam Data for Last 24 hours Vital signs and Labs for Last 24 Hours: Temp Pulse Resp BP Pulse Ox O2 Del Method 97.9 F 53 L 16 106/68 L 95 Room Air 01/06/25 07:43 01/06/25 07:43 01/06/25 07:43 01/06/25 07:43 01/06/25 08:45 01/06/25 13:10 Laboratory Results - last 24 hr 01/05/25 19:19: WBC 9.6, RBC 4.89, Hgb 15.1, Hct 44.9, MCV 91.8, MCH 30.9, MCHC 33.6, RDW 14.8, Plt Count 245, MPV 9.5, Neut % (Auto) 69.0, Lymph % (Auto) 20.4, [place] % (Auto) 6.8, Eos % (Auto) 2.2, Baso % (Auto) 0.9, Neut # (Auto) 6.6, Lymph # (Auto) 2.0, [place] # (Auto) 0.7, Eos # (Auto) 0.2, Baso # (Auto) 0.1, Sodium 135 L, Potassium 4.1, Chloride 96 L, Carbon Dioxide 30, Anion Gap 13.1, BUN 13, Creatinine 1.20, Estimated Creat Clear 89, Estimated GFR 61, Est GFR ( [place]) 74, Glucose 104 H, Lactate 1.0, Calcium 9.2, Total Bilirubin 0.7, AST 44, ALT 17, Alkaline Phosphatase 66, Total Protein 8.8 H, Albumin 4.6, Globulin 4.2 H, Albumin/Globulin Ratio 1.1, Lipase 59 01/05/25 21:06: Urine Color Yellow, Urine Appearance Clear, Urine pH 6.0, Ur Specific [place] 1.015, Urine Protein Negative, Urine Glucose (UA) Negative, Urine Ketones Negative, Urine Blood Negative, Urine Nitrate Negative, Urine Bilirubin Negative, Urine Urobilinogen 0.2, Ur Leukocyte Esterase Negative, Ur ine RBC None, Urine WBC Occasional, Ur Squamous Epith Cells Occasional, Urine Bacteria Trace 01/06/25 05:04: TSH 118.00 H 01/06/25 05:44: WBC 9.7, RBC 4.43 L, Hgb 13.7 L, Hct 40.5 L, MCV 91.4, MCH 30.9, MCHC 33.8, RDW 14.8, Plt Count 210, MPV 9.7, Neut % (Auto) 73.6, Lymph % (Auto) 17.4, [place] % (Auto) 6.5, Eos % (Auto) 1.4, Baso % (Auto) 0.6, Neut # (Auto) 7.2, Lymph # (Auto) 1.7, [place] # (Auto) 0.6, Eos # (Auto) 0.1, Baso # (Auto) 0.1, Sodium 134 L, Potassium 3.9, Chloride 99, Carbon Dioxide 27, Anion Gap 11.9, BUN 10, Creatinine 0.90 D, Estimated Creat Clear 107, Estimated GFR 85, Est GFR ( Amer) 103 D, Glucose 105 H, Calcium 8.3 L, Procalcitonin 0.033, Free T4 0.08 L I & O for Last 24 hours: Intake & Output 01/03/25 01/04/25 01/05/25 01/06/25 23:59 23:59 23:59 23:59 Intake Total 150 / 550 2250 / 2250 Output Total 400 / 400 Balance 150 / 550 1850 / 1850 Weight 99.926 kg 100.335 kg Constitutional Constitutional: no acute distress, average body habitus and cooperative *Routine HEENT Exam Head: Present normocephalic Eye: Present EOMI and PERRL ENT: Present mucous membranes moist *Routine Neck Exam Neck: Present supple; Absent lymphadenopathy *Routine Respiratory Exam Respiratory: Present CTA bilaterally and normal respiratory effort; Absent wheezes or crackles *Routine Cardiovascular Exam Cardiovascular: Present RRR; Absent murmur *Routine Abdominal Exam Abdominal: Present soft and normoactive bowel sounds; Absent tenderness or distended *Routine Rectal Exam Patient deferred: visual exam *Routine Exam Patient deferred: penile exam *Routine Extremities Exam Extremities: Absent cyanosis, clubbing or edema *Routine Skin Exam Skin: Present intact, dry and warm; Absent rash *Routine Neurological Exam Neurological: Present alert, oriented X3, vision grossly intact, hearing grossly intact and normal speech Routine Psychiatric Exam Psychiatric: Present normal affect Results Data Completed and Pending Labs on day of discharge: Labs from last 24 hours 01/06/25 01/06/25 01/05/25 05:44 05:04 21:06 WBC 9.7 RBC 4.43 L Hgb 13.7 L Hct 40.5 L MCV 91.4 MCH 30.9 MCHC 33.8 RDW 14.8 Plt Count 210 MPV 9.7 Neut % (Auto) 73.6 Lymph % (Auto) 17.4 [place] % (Auto) 6.5 Eos % (Auto) 1.4 Baso % (Auto) 0.6 Neut # (Auto) 7.2 Lymph # (Auto) 1.7 [place] # (Auto) 0.6 Eos # (Auto) 0.1 Baso # (Auto) 0.1 Sodium 134 L Potassium 3.9 Chloride 99 Carbon Dioxide 27 Anion Gap 11.9 BUN 10 Creatinine 0.90 D Estimated Creat Clear 107 Estimated GFR 85 Est GFR ( Amer) 103 D Glucose 105 H Lactate Calcium 8.3 L Total Bilirubin AST ALT Alkaline Phosphatase Total Protein Albumin Globulin Albumin/Globulin Ratio Lipase Procalcitonin 0.033 TSH 118.00 H Free T4 0.08 L Urine Color Yellow Urine Appearance Clear Urine pH 6.0 Ur Specific [place] 1.015 Urine Protein Negative Urine Glucose (UA) Negative Urine Ketones Negative Urine Blood Negative Urine Nitrate Negative Urine Bilirubin Negative Urine Urobilinogen 0.2 Ur Leukocyte Esterase Negative Urine RBC None Urine WBC Occasional Ur Squamous Epith Cells Occasional Urine Bacteria Trace 01/05/25 19:19 WBC 9.6 RBC 4.89 Hgb 15.1 Hct 44.9 MCV 91.8 MCH 30.9 MCHC 33.6 RDW 14.8 Plt Count 245 MPV 9.5 Neut % (Auto) 69.0 Lymph % (Auto) 20.4 [place] % (Auto) 6.8 Eos % (Auto) 2.2 Baso % (Auto) 0.9 Neut # (Auto) 6.6 Lymph # (Auto) 2.0 [place] # (Auto) 0.7 Eos # (Auto) 0.2 Baso # (Auto) 0.1 Sodium 135 L Potassium 4.1 Chloride 96 L Carbon Dioxide 30 Anion Gap 13.1 BUN 13 Creatinine 1.20 Estimated Creat Clear 89 Estimated GFR 61 Est GFR ( Amer) 74 Glucose 104 H Lactate 1.0 Calcium 9.2 Total Bilirubin 0.7 AST 44 ALT 17 Alkaline Phosphatase 66 Total Protein 8.8 H Albumin 4.6 Globulin 4.2 H Albumin/Globulin Ratio 1.1 Lipase 59 Procalcitonin TSH Free T4 Urine Color Urine Appearance Urine pH Ur Specific [place] Urine Protein Urine Glucose (UA) Urine Ketones Urine Blood Urine Nitrate Urine Bilirubin Urine Urobilinogen Ur Leukocyte Esterase Urine RBC Urine WBC Ur Squamous Epith Cells Urine Bacteria DS: Diagnosis Discharge Diagnosis (1) Stercoral colitis: Status: Acute Code(s): K52.89 - Other specified noninfective gastroenteritis and colitis (2) Obstipation: Status: Acute Code(s): K59.00 - Constipation, unspecified (3) Abdominal pain: Status: Acute Code(s): R10.9 - Unspecified abdominal pain Qualifiers: Abdominal location: generalized Qualified Code(s): R10.84 - Generalized abdominal pain (4) Hypothyroidism: Status: Acute Code(s): E03.9 - Hypothyroidism, unspecified Meds Home Medications and Allergies Home Medications ?Medication ?Instructions ?Recorded ?Confirmed ?Type pregabalin 150 mg capsule 100 mg PO HS 01/05/25 History levofloxacin 750 mg tablet 750 mg PO DAILY #4 tabs Rx levothyroxine 125 mcg tablet 125 mcg PO DAILY #30 tabs 01/06/25 Rx (Synthroid) metronidazole 500 mg tablet 500 mg PO Q8H 4 days #12 t abs 01/06/25 Rx New Prescriptions to Start Prescriptions: levofloxacin [place] levothyroxine [Synthroid] [place] metronidazole [place] Allergies Allergy/AdvReac Type Severity Reaction Status Date / Time Penicillins Allergy Intermediate I-HIVES Verified 12/30/24 08:54 Discharge Plan Disposition Patient Disposition: Home, Self-Care Condition: Good Follow up Plan Follow up with: Raymundo Tariq MD [Primary Care Provider, Internal Medicine] - 01/12/25 9:00 am Prescriptions/Medication Reconciliation: New metronidazole 500 mg tablet 500 mg PO Q8H 4 Days Qty: 12 0RF levofloxacin 750 mg tablet 750 mg PO DAILY Qty: 4 0RF levothyroxine [Synthroid] 125 mcg tablet 125 mcg PO DAILY Qty: 30 0RF Continued pregabalin 150 mg capsule 100 mg PO HS Discontinued levothyroxine 75 mcg tablet 75 mcg PO AM Patient Comments: TAKE ONE TABLET BY MOUTH EVERY DAY Problem Reconciliation Problems Reviewed?: Yes Patient Discharge Instructions ACTIVITY: Continue current activity DIET: advance to your usual diet Patient Instructions: DI for Abdominal Pain in Adults, DI for Constipation, DI for Colitis Print Language: Faroese Providers Primary Care Provider: Raymundo Tariq Admit Provider: Zhen Altamirano Attending Provider: Zhen Altamirano
--- NOTE | 2025-01-06 15:38 | PC.NURSE ---
CALLED CLINIC PHARMACY TO LET THEM KNOW PT IS BEING DISCHARGED AND READY FOR MEDS TO BE BROUGHT TO HIS ROOM
--- NOTE | 2025-01-07 11:11 | SW/DCPLANNER ---
Spoke with patient on the phone. Patient stated that he is doing good. Patient stated that he is aware of his upcoming appointment. Patient stated that he was able to get his new medicine picked up from clinic pharmacy. Patient stated that he has no concerns or questions at this time. Kerwin Ritchie
== END 2025-01-06 16:03 | disposition home or self-care (01) ==
LOC: ER 22:12 → 2ND 22:34
PROVIDERS: Nurse Practitioner Family; Physician Assistant; Admitting Provider Student in an Organized Health Care Education/Training Program; Emergency Provider Student in an Organized Health Care Education/Training Program; PCP Internal Medicine Adolescent Medicine; Visit Provider Student in an Organized Health Care Education/Training Program
DX: K52.89 Other specified noninfective gastroenteritis and colitis (principal); K59.00 Constipation, unspecified; E89.0 Postprocedural hypothyroidism; G62.9 Polyneuropathy, unspecified; Z88.0 Allergy status to penicillin; Z90.49 Acquired absence of other specified parts of digestive tract; Z79.899 Other long term (current) drug therapy
CPT/HCPCS: 71045; 74177; 80048; 80053; 81001; 83605; 83690; 84145; 84439; 84443; 85025; 96361; 96365; 96366; 96367; 96372; 96375; 99285; G0378; J0692; J1650; J1836; J1956; J2270; J2405; J7030; Q9967

== ENCOUNTER 2025-03-14 13:22 | Outpatient (CLI) | payer BC, SELFPAY ==
--- OUTSIDE RECORDS SUMMARY | 2024-06-19 16:30 | XMS_ITS ---
Author Organization [facility] Address [address] [place] [address] Care Team Providers Care Software Applications Developer Name Role Phone Raymundo Tariq Primary Care Provider [phone] Raymundo Tariq Unavailable Unavailable Migration, Provider Unavailable Unavailable Allergies Allergen (clinical drug ingredient) Drug/Non Drug Allergy documented on EMR Reaction Allergy Type Onset Date Status penicillin G Penicillin G Potassium hives Drug Allergy Active REASON FOR VISIT Multum To Medispan Conversion Encounter Medications Medication SIG (Take, Route, Frequency, Duration) Notes Start Date End Date Status Vitamin D3 1250 MCG CAPSULE 1 CAP(S) ORALLY ONCE A WEEK; Duration: 90 DAYS *Please review and pick [facility] If intended option is not shown, discontinue and re-order from Quick Search* 07/01/2023 Active PAXLOVID 150 MG-100 MG (300 MG-100 MG DOSE) TABLET 2 TABS ORALLY TWICE DAILY; Duration: 5 DAYS *Please review for potential replacement for e-prescription and drug interaction check* 11/11/2023 Active Pregabalin 100 MG Capsule 1 cap(s) orally once a day Active traMADol HCl 50 MG Tablet 1 tab(s) orally at night prn Active Levothyroxine Sodium 75 MCG Tablet 1 tab(s) orally once a day; Duration: 90 days Active Encounters Encounter Location Date Provider Diagnosis [facility] [address] [place] [address] 06/19/2024 Provider Migration Plan Of Treatment Medication Medication Name Sig Start Date Stop Date Notes Vitamin D3 1250 MCG CAPSULE 1 CAP(S) ORALLY ONCE A WEEK; Duration: 90 DAYS 07/01/2023 *Please review and pick correct strength-formulation from [facility] options. If intended option is not shown, discontinue and re-order from Quick Search* PAXLOVID 150 MG-100 MG (300 MG-100 MG DOSE) TABLET 2 TABS ORALLY TWICE DAILY; Duration: 5 DAYS 11/11/2023 *Please review for potential replacement for e-prescription and drug interaction check* Levothyroxine Sodium 75 MCG Tablet 1 tab(s) orally once a day; Duration: 90 days Next Appt Details Provider Name:Raymundo Tariq, 06/22/2025 09:15:00 AM, [address] [facility] [address] [facility], [address], [place], [address], Progress Notes * Neris ROSASOB: 2 (64 yo M)Acc No.[id number]:06/19/2024 Patient: Davy Katz Provider: Maira Harris :1960 A ge:63 Y S ex:Male Date:06/19/2024 Address:[address] [facility], [facility], [id number] Pcp:Raymundo Tariq Subjective: * Chief Complaints: * M ultum To [facility] Conversion Encounter * Medications: T akingtraMADol HCl 50 MG Tablet 1 tab(s) orally at night prn Pregabalin 100 MG Capsule 1 cap(s) orally once a day Taking traMADol HCl 50 MG Tablet 1 tab(s) orally at night prn Taking Pregabalin 100 MG Capsule 1 cap(s) orally once a day * Allergies: P enicillin G Potassium: hives Plan: * Treatment: Billing Information: * Procedure Codes: * Electronic signature of Sonny del castillo Migration on 03/14/2025 at 01:25 PM EST Sign off status: Pending * Provider: Maira Harris Date: 0 06/19/2024 Generated for Anyi cardoza/Danielito/Johanny on: 01:25 PM EST
--- OUTSIDE RECORDS SUMMARY | 2025-02-23 04:00 | XMS_ITS ---
Author Organization [facility] Address [address] [place] [address] Care Team Providers Care Embedder Name Role Phone Raymundo Tariq Primary Care Provider Raymundo Tariq Unavailable Unavailable Allergies Allergen (clinical drug ingredient) Drug/Non Drug Allergy documented on EMR Reaction Allergy Type Onset Date Status penicillin G Penicillin G Potassium hives Drug Allergy Active Results Component Value Reference Range Flag Notes THYROID PANEL WITH TSH (8144 ) Reviewed date:02/28/2025 09:29:56 AM Interpretation: Performing Lab:[facility] [employer] [employer], HERMEL [id number] Johnson Lindo Notes/Report: NON-FASTING; NON-FASTING; NON-FASTING; NON-FASTING; NON-FAST FASTING:YES FASTING: YES T3 UPTAKE 32 22-35 % N T4 (THYROXINE), TOTAL 8.0 4.9-10.5 mcg/dL N FREE T4 INDEX (T7) 2.6 1.4-3.8 N TSH 5.16 0.40-4.50 mIU/L H LIPID PANEL, STANDARD (7600) Reviewed date:02/28/2025 09:29:57 AM Interpretation: Performing Lab:[facility] [address] [employer], Orchid [id number] Johnson Lindo Notes/Report: NON-FASTING; NON-FASTING; NON-FASTING; NON-FASTING; NON-FAST FASTING:YES FASTING: YES CHOLESTEROL, TOTAL 189 <200 mg/dL N HDL CHOLESTEROL 35 > OR = 40 mg/dL L TRIGLYCERIDES 102 <150 mg/dL N LDL-CHOLESTEROL 134 H Reference range: <100 Desirable range <100 mg/dL for primary prevention; <70 mg/dL for patients with CHD or diabetic patients with > or = 2 CHD risk factors. LDL-C is now calculated using the Madisyn calculation, which is a validated novel method providing better accuracy than the Friedewald equation in the estimation of LDL-C. Shantanu SS et al. ARIANNA. 2013;310(07): 8302-2255 (http://education.Dynamic Yield/faq/UVQ950) CHOL/HDLC RATIO 5.4 <5.0 (calc) H NON HDL CHOLESTEROL 154 <130 mg/dL (calc) H option. For patients with diabetes plus 1 major ASCVD risk factor, treating to a non-HDL-C goal of <100 mg/dL (LDL-C of <70 mg/dL) is considered a therapeutic COMPREHENSIVE METABOLIC PANE Rosalba (02743) Reviewed date:02/28/2025 09:29:57 AM Interpretation: Performing Lab:[facility], [employer] [address] [facility] [address], [facility] RochesterTqbfLO[address] Johnson Lindo Notes/Report: NON-FASTING; NON-FASTING; NON-FASTING; NON-FASTING; NON-FAST FASTING:YES FASTING: YES GLUCOSE 93 65-99 mg/dL N Fasting reference interval UREA NITROGEN (BUN) 11 7-25 mg/dL N CREATININE 0.85 0.70-1.35 mg/dL N EGFR 98 > OR = 60 mL/min/1.73m2 N BUN/CREATININE RATIO SEE NOTE: 6-22 (calc) Not Reported: BUN and Creatinine are within reference range. SODIUM 140 135-146 mmol/L N POTASSIUM 4.4 3.5-5.3 mmol/L N CHLORIDE 103 98-110 mmol/L N CARBON DIOXIDE 31 20-32 mmol/L N CALCIUM 9.4 8.6-10.3 mg/dL N PROTEIN, TOTAL 6.9 6.1-8.1 g/dL N ALBUMIN 4.3 3.6-5.1 g/dL N GLOBULIN 2.6 1.9-3.7 g/dL (calc) N ALBUMIN/GLOBULIN RATIO 1.7 1.0-2.5 (calc) N BILIRUBIN, TOTAL 0.6 0.2-1.2 mg/dL N ALKALINE PHOSPHATASE 62 35-144 U/L N AST 14 10-35 U/L N ALT 11 9-46 U/L N MAGNESIUM (622) Reviewed date:02/28/2025 09:29:57 AM Interpretation: Performing Lab:[facility], [employer] [address] [employer], QuotefishKsdyVB[address] Johnson Lindo Notes/Report: NON-FASTING; NON-FASTING; NON-FASTING; NON-FASTING; NON-FAST FASTING:YES FASTING: YES MAGNESIUM 2.2 1.5-2.5 mg/dL N CBC (INCLUDES DIFF/PLT) (639 9) Reviewed date:02/28/2025 09:29:57 AM Interpretation: Performing Lab:[facility], [employer] [employer], QuotefishZpkqKK[address] Johnson Lindo Notes/Report: NON-FASTING; NON-FASTING; NON-FASTING; NON-FASTING; NON-FAST FASTING:YES FASTING: YES WHITE BLOOD CELL COUNT 6.3 3.8-10.8 Thousand/uL N RED BLOOD CELL COUNT 4.81 4.20-5.80 Million/uL N HEMOGLOBIN 14.9 13.2-17.1 g/dL N HEMATOCRIT 44.8 39.4-51.1 % N MCV 93.1 81.4-101.7 fL N MCH 31.0 27.0-33.0 pg N MCHC 33.3 31.6-35.4 g/dL N RDW 13.3 11.0-15.0 % N PLATELET COUNT 254 140-400 Thousand/uL N MPV 10.1 7.5-12.5 fL N ABSOLUTE NEUTROPHILS [phone] cells/uL N ABSOLUTE LYMPHOCYTES 1080 974-1883 cells/uL N ABSOLUTE MONOCYTES 592 200-950 cells/uL N ABSOLUTE EOSINOPHILS 202 15-500 cells/uL N ABSOLUTE BASOPHILS 63 0-200 cells/uL N NEUTROPHILS 63.4 N LYMPHOCYTES 23.0 N MONOCYTES 9.4 N EOSINOPHILS 3.2 N BASOPHILS 1.0 N HEMOGLOBIN A1c (496) Reviewed date:02/28/2025 09:29:57 AM Interpretation: Performing Lab:[facility], [address] [facility] Johnson Lindo Notes/Report: NON-FASTING; NON-FASTING; NON-FASTING; NON-FASTING; NON-FAST FASTING:YES FASTING: YES HEMOGLOBIN A1c 5.7 <5.7 % H For someone without known diabetes, a hemoglobin A1c value between 5.7% and 6.4% is consistent with prediabetes and should be confirmed with a follow-up test. For someone with known diabetes, a value <7% indicates that their diabetes is well controlled. A1c targets should be individualized based on duration of diabetes, age, comorbid conditions, and other considerations. This assay result is consistent with an increased risk of diabetes. Currently, no consensus exists regarding use of hemoglobin A1c for diagnosis of diabetes for children. PSA, TOTAL (5363) Reviewed date:02/28/2025 09:29:57 AM Interpretation: Performing Lab:[facility] [employer] Aoyj[address] [facility] Johnson Lindo Notes/Report: NON-FASTING; NON-FASTING; NON-FASTING; NON-FASTING; NON-FAST FASTING:YES FASTING: YES PSA, TOTAL 2.98 < OR = 4.00 ng/mL N The total PSA value from this assay system is standardized against the WHO standard. The test result will be approximately 20% lower when compared to the equimolar-standardized total PSA (Pam Kimber). Comparison of serial PSA results should be interpreted with this fact in mind. This test was performed using the Siemens chemiluminescent method. Values obtained from different assay methods cannot be used interchangeably. PSA levels, regardless of value, should not be interpreted as absolute evidence of the presence or absence of disease. Reason For Referral Reason [facility] D[facility] in [facility] Diagnosis 1 Multiple melanocytic nevi (D22.9) Referral Organization [facility] Referring Provider First Name Raymundo Referring Provider Last Name Marciano Referring Provider Speciality Internal M edicine Referred Organization [facility] Referred Address [address], [place],[address],[place] Referred Provider Specialty Dermatology Referral Priority Routine REASON FOR VISIT 6 Week Follow up. Has mole on top of back he wants looked at, Prev care update Medications Medication SIG (Take, Route, Frequency, Duration) Notes Start Date End Date Status MiraLax 17 GM/SCOOP Powder as directed Orally Active Pregabalin 100 MG Capsule 1 cap(s) orall y once a day Active Levothyroxine Sodium 125 MCG Capsule 1 tab(s) orally once a day; Duration: 90 days Active Immunizations Vaccine Route Administration Date Status Comme nts Boostrix IM Intramuscular 02/23/2025 Administered Social History Tobacco Use: Social History Observation Description Date Details (start date - stop date) Current Smoker NA - NA Social History Social History Social Info Question Answer Notes Smoking: Are you a: current every day smoker Additional Findings: Tobacco User Moderate cigar ette smoker (10-19 cigs/day) Additional Details Category Social Info Options Details Social History 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 Travel outside [place]: no Alcohol: no Sexually active: yes Recreational drug use: no Exercise: yes yard work Home smoke detector use: yes Caffeine: yes frequency: coffe e, tea Living Will Yes Vital Signs Temperature 97.5 degrees Fahrenheit 02/24/20 25 Blood pressure systolic 100 mm Hg 02/24/20 25 Blood pressure diastolic 72 mm Hg 025 Heart Rate 92 /min 02/23/2025 Height 6ft 2in in 02/23/2025 Weight 216 lbs 02/23/2025 BMI 27.73 kg/m2 02/23/2025 Encounters Encounter Location Date Provider Diagnosis [facility] [address] [place] [address] 02/23/2025 Raymundoyaneth Tariq Acquired hypothyroid ism E03.9 ; Ventricular bigeminy I49.8 ; Other chronic pain G89.29 ; Personal history of nicotine dependence Z87.891 ; Prostate cancer screening Z12.5 ; Diabetes mellitus screening Z13.1 ; Multiple melanocytic nevi D22.9 ; Routine medical exam Z00.00 and Encounter for immunization Z23 Assessments Encounter Date Diagnosis (ICD Code) Assessment Notes Treatment Notes Treatment Clinical Notes Section Notes 02/23/2025 Acquired hypothyroidism (ICD-10 - E03.9) Appears clinically euthyroid. Will check TSH today. reports compliance with medication 02/23/2025 Ventricular bigeminy (ICD-10 - I49.8) Sinus rhythm, continue current therapy 02/23/2025 Other chronic pain (ICD-10 - G89.29) Doing well with pregabalin, compliant with refill requirements and monitoring 02/23/2025 Personal history of nicotine dependence (ICD-10 - Z87.891) Has smoked for 40 years. Has quit a couple of times for about a year, encouraged cessation again. He will think about this. Spent greater than 5 minutes discussing need for smoking cessation. Has never had a low-dose CT scan, this will be scheduled 02/23/2025 Prostate cancer screening (ICD-10 - Z12.5) PSA and A1c done for prostate and diabetes screening as noted 02/23/2025 Diabetes mellitus screening (ICD-10 - Z13.1) 02/23/2025 Multiple melanocytic nevi (ICD-10 - D22.9) Has scattered melanocytic nevi over his back. Lots of sun damage when he was younger, will schedule dermatology skin evaluation 02/23/2025 Routine medical exam (ICD-10 - Z00.00) Has had colon screening, will set up low-dose CT and will also need AAA screening. Has had flu shot, will get Tdap today. 02/23/2025 Encounter for immunization (ICD-10 - Z23) Plan Of Treatment Treatment Notes Assessment Notes Acquired hypothyroidism Appears clinical ly euthyroid. Will check TSH today. reports compliance with medication Ventricular bigeminy Sinus rhythm, marbella nue current therapy Other chronic pain Doing well with preg abalin, compliant with refill requirements and monitoring Personal history of nicotine dependence Has smoked for 40 years. Has quit a couple of times for about a year, encouraged cessation again. He will think about this. Spent greater than 5 minutes discussing need for smoking cessation. Has never had a low-dose CT scan, this will be scheduled Prostate cancer screening PSA and A1c do ne for prostate and diabetes screening as noted Multiple melanocytic nevi Has scattered melanocytic nevi over his back. Lots of sun damage when he was younger, will schedule dermatology skin evaluation Routine medical exam Has had colon screening, will set up low-dose CT and will also need AAA screening. Has had flu shot, will get Tdap today. Pending Test Test Name Order Date CT Scan : Chest, Lung Cancer Screening 1 04/26/2024 Referrals Referral Date Details 02/23/2025 02/23/2025, [facility] in [address], [address], Next Appt Details Follow Up: 3 Months, Reason: Provider Name:Raymundo Tariq, 06/22/2025 09:15:00 AM, [address], [address], [place], [address], History and Physical Notes * HPI (History of Present Illness) Category Sub-Category Detail Notes Category Not es gen Patient is here to go over his medical problems. He has been compliant with his levothyroxine and has no further episodes of constipation. Also doing MiraLAX daily. Pregabalin is helping him sleep at night with his significant neuropathy. Overall feels good. Is here for follow-up of his labs and calibration of his Synthroid dose as well as to go over his routine health care issues. See notes below about these issues Examination Category Sub-Category Detail Notes Category Not es General Examination HEENT: pharynx and tonsils normal, TM's normal Neck supple, no lymphaden opathy Heart: Regular Rate and Rhy thm, no murmur, rubs or gallops Lungs: LCTAB, No wheezes, c rackles or rhonchi, Good air movement, Abdomen: Soft, NTND, BSNA, No organomegaly or peritoneal signs. Extremities: normal ROM,, no club curtis, no edema,, no foot lesions, General Appearance: NAD, pleasant Skin: without acute rashes - lots of melanocytic lesions on back Neurologic Exam: no focal signs,, nor mal sensation, strength, tone and reflexes,, Alert and oriented x 3 Oral cavity: Moist membranes Peripheral pulses: normal (2+) bilatera lly Back: normal, Chest: normal shape and exp ansion neck supple,, no thyromeg jessie,, no lymphadenopathy, General Pleasant and Coopera tive, NAD on RA, Psych Normal Mood/Affect diabetic foot exam Visual exam of foot performed :: Yes Consultation Request Notes Referral Date Referring Provider Referred Provider Not sheela 02/23/2025 Raymundo Tariq [facility] D [facility] in [place] Progress Notes * Carlos VILLARREALneDOB: 2 (64 yo M)Acc No.[id number]:02/23/2025 Progress Notes Patient: Davy PATEL Provider: Reza Tariq MD :1960 A ge:64 Y S ex:Male Date:02/23/2025 Address:[address], [place], [id number] Subjective: * Chief Complaints: * 1 . 6 Week Follow up. Has mole on top of back he wants looked at. 2. Prev care update. * HPI: g en: Patient is here to go over his medical problems. He has been compliant with his levothyroxine and has no further episodes of constipation. Also doing MiraLAX daily. Pregabalin is helping him sleep at night with his significant neuropathy. Overall feels good. Is here for follow-up of his labs and calibration of his Synthroid dose as well as to go over his routine health care issues. See notes below about these issues. * Medical History: * Surgical History: * Hospitalization/Major Diagno stic Procedure: * Family History: F ather: alive. M other: alive, diagnosed with Cancer. P aternal Grand Father: . P aternal Grand Mother: . M aternal Grand Father: . M aternal Grand Mother: . P aternal uncle: . P aternal aunt: . M aternal uncle: alive, 1 uncle still living. M aternal aunt: alive, 3 aunts still living. S iblings: alive.?2 brother(s) . 2 son(s) . . 1 brother DM 1 brother legally blind. * Social History: S moking A re you a: c urrent every day smoker, A dditional Findings: Tobacco User?Moderate cigarette smoker (10-19 cigs/day). R ecreational drug use: no. Exercise: yes, yard work. Home smoke detector use: yes. Caffeine: yes, frequency: coffee, tea. Living Will: Yes. Alcohol: no. Sexually active: yes. Travel outside [place]: no. 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 * Medications: T aking MiraLax 17 GM/SCOOP Powder as directed Orally , Taking Pregabalin 100 MG Capsule 1 cap(s) orally once a day , Taking Levothyroxine Sodium 125 MCG Capsule 1 tab(s) orally once a day , Medication List reviewed and reconciled with the patient * Allergies: P enicillin G Potassium: hives. Objective: * Vitals: N urse: KJ, Pain: 0, Temp: 97.5, RR: 18, HR: 92, BP: 100/72, Ht: 6ft 2in, Wt: 216, BMI:27.73. * Examination: G eneral Examination: General P leasant and Cooperative, NAD on RA,. Oral cavity: M oist membranes. Chest: n ormal shape and expansion. Heart: R egular Rate and Rhythm, no murmur, rubs or gallops. HEENT: p harynx and tonsils normal, TM's normal. Lungs: L CTAB, No wheezes, crackles or rhonchi, Good air movement,. Abdomen: S oft, NTND, BSNA, No organomegaly or peritoneal signs.. Neurologic Exam: n o focal signs,, normal sensation, strength, tone and reflexes,, Alert and oriented x 3. Skin: w ithout acute rashes - lots of melanocytic lesions on back. Peripheral pulses: n ormal (2+) bilaterally. Back: n ormal,. Extremities: n ormal ROM,, no clubbing, no edema,, no foot lesions,. neck s upple,, no thyromegaly,, no lymphadenopathy,. Psych N ormal Mood/Affect. diabetic foot exam V isual exam of foot performed: . Neck s upple, no lymphadenopathy. General Appearance: N AD, pleasant. Assessment: * Assessment: 1. A cquired hypothyroidism - E03.9 (Primary) 2 . V entricular bigeminy - I49.8 3 . O ther chronic pain - G89.29 4 . P ersonal history of nicotine dependence - Z87.891 5 . P rostate cancer screening - Z12.5 & #160; 6 . D iabetes mellitus screening - Z13.1 7 . M ultiple melanocytic nevi - D22.9 8 . R outine medical exam - Z00.00 9 . E ncounter for immunization - Z23 Plan: * Treatment: Value Reference Range T 3 UPTAKE 32 22-35 - % * T 4 (THYROXINE), TOTAL 8.0 4.9-10.5 - mcg/dL * F REE T4 INDEX (T7) 2.6 1.4-3.8 - * T SH 5.16 H 0.40-4.50 - mIU/L * Deena Ramirez 02/28/2025 09:29:47 AM EST > Patient informedThis lab was reviewed by Deena Ramirez on 02/28/2025 at 09:29 AM EST ?LAB: COMPREHENSIVE METABOLIC PANEL (48280)* Value Reference Range G LUCOSE 93 65-99 - mg/dL * U NIKHIL NITROGEN (BUN) 11 7-25 - mg/dL * C REATININE 0.85 0.70-1.35 - mg/dL * B UN/CREATININE RATIO SEE NOTE: 6-22 - (calc) * S ODIUM 140 135-146 - mmol/L * P OTASSIUM 4.4 3.5-5.3 - mmol/L * C HLORIDE 103 98-110 - mmol/L * C ARBON DIOXIDE 31 20-32 - mmol/L * C ALCIUM 9.4 8.6-10.3 - mg/dL * P ROTEIN, TOTAL 6.9 6.1-8.1 - g/dL * A LBUMIN 4.3 3.6-5.1 - g/dL * G LOBULIN 2.6 1.9-3.7 - g/dL (calc ) * A LBUMIN/GLOBULIN RATIO 1.7 1.0-2.5 - (calc) * B ILIRUBIN, TOTAL 0.6 0.2-1.2 - mg/dL * A LKALINE PHOSPHATASE 62 35-144 - U/L * A ST 14 10-35 - U/L * A LT 11 9-46 - U/L * E GFR 98 > OR = 60 - mL/min/1 .73m2 * Deena Ramirez 02/28/2025 09:29:47 AM EST > Patient informedThis lab was reviewed by Deena Ramirez on 02/28/2025 at 09:29 AM EST ?LAB: MAGNESIUM (622)* Value Reference Range M AGNESIUM 2.2 1.5-2.5 - mg/dL * Deena Ramirez 02/28/2025 09:29:47 AM EST > Patient informedThis lab was reviewed by Deena Ramirez on 02/28/2025 at 09:29 AM EST ?LAB: CBC (INCLUDES DIFF/PLT) (6399)* Value Reference Range W HUBER BLOOD CELL COUNT 6.3 3.8-10.8 - Thousan d/uL * R ED BLOOD CELL COUNT 4.81 4.20-5.80 - Million/ uL * H EMOGLOBIN 14.9 13.2-17.1 - g/dL * H EMATOCRIT 44.8 39.4-51.1 - % * M CV 93.1 81.4-101.7 - fL * M CH 31.0 27.0-33.0 - pg * M CHC 33.3 31.6-35.4 - g/dL * R DW 13.3 11.0-15.0 - % * P LATELET COUNT 254 140-400 - Thousand/u L * N EUTROPHILS 63.4 - % * A BSOLUTE NEUTROPHILS 3994 [address] - cells/uL * L YMPHOCYTES 23.0 - % * A BSOLUTE LYMPHOCYTES 8226 973-3587 - cells/uL * M ONOCYTES 9.4 - % * A BSOLUTE MONOCYTES 592 200-950 - cells/uL * E OSINOPHILS 3.2 - % * A BSOLUTE EOSINOPHILS 202 15-500 - cells/uL * B ASOPHILS 1.0 - % * A BSOLUTE BASOPHILS 63 0-200 - cells/uL * M PV 10.1 7.5-12.5 - fL * Deena Ramirez 02/28/2025 09:29:47 AM EST > Patient informedThis lab was reviewed by Deena Ramirez on 02/28/2025 at 09:29 AM EST Notes: Appears clinically euthyroid. Will check TSH today. reports compliance with medication? 2.?Ventricular bigeminy?LAB: LIPID PANEL, STANDARD (8330)* Value Reference Range T RIGLYCERIDES 102 <150 - mg/dL * C HOLESTEROL, TOTAL 189 <200 - mg/dL * H DL CHOLESTEROL 35 L > OR = 40 - mg/dL * L DL-CHOLESTEROL 134 H - mg/dL (calc) * C HOL/HDLC RATIO 5.4 H <5.0 - (calc) * N ON HDL CHOLESTEROL 154 H <130 - mg/dL (calc) * Deena Ramirez 02/28/2025 09:29:47 AM EST > Patient informedThis lab was reviewed by Deena Ramirez on 02/28/2025 at 09:29 AM EST ?LAB: COMPREHENSIVE METABOLIC PANEL (28942)* Value Reference Range G LUCOSE 93 65-99 - mg/dL * U NIKHIL NITROGEN (BUN) 11 7-25 - mg/dL * C REATININE 0.85 0.70-1.35 - mg/dL * B UN/CREATININE RATIO SEE NOTE: 6-22 - (calc) * S ODIUM 140 135-146 - mmol/L * P OTASSIUM 4.4 3.5-5.3 - mmol/L * C HLORIDE 103 98-110 - mmol/L * C ARBON DIOXIDE 31 20-32 - mmol/L * C ALCIUM 9.4 8.6-10.3 - mg/dL * P ROTEIN, TOTAL 6.9 6.1-8.1 - g/dL * A LBUMIN 4.3 3.6-5.1 - g/dL * G LOBULIN 2.6 1.9-3.7 - g/dL (calc ) * A LBUMIN/GLOBULIN RATIO 1.7 1.0-2.5 - (calc) * B ILIRUBIN, TOTAL 0.6 0.2-1.2 - mg/dL * A LKALINE PHOSPHATASE 62 35-144 - U/L * A ST 14 10-35 - U/L * A LT 11 9-46 - U/L * E GFR 98 > OR = 60 - mL/min/1 .73m2 * Deena Ramirez 02/28/2025 09:29:47 AM EST > Patient informedThis lab was reviewed by Deena Ramirez on 02/28/2025 at 09:29 AM EST ?LAB: MAGNESIUM (622)* Value Reference Range M AGNESIUM 2.2 1.5-2.5 - mg/dL * Deena Ramirez 02/28/2025 09:29:47 AM EST > Patient informedThis lab was reviewed by eDena Ramirez on 02/28/2025 at 09:29 AM EST ?LAB: CBC (INCLUDES DIFF/PLT) (7348)* Value Reference Range W HUBER BLOOD CELL COUNT 6.3 3.8-10.8 - Thousan d/uL * R ED BLOOD CELL COUNT 4.81 4.20-5.80 - Million/ uL * H EMOGLOBIN 14.9 13.2-17.1 - g/dL * H EMATOCRIT 44.8 39.4-51.1 - % * M CV 93.1 81.4-101.7 - fL * M CH 31.0 27.0-33.0 - pg * M CHC 33.3 31.6-35.4 - g/dL * R DW 13.3 11.0-15.0 - % * P LATELET COUNT 254 140-400 - Thousand/u L * N EUTROPHILS 63.4 - % * A BSOLUTE NEUTROPHILS 3994 0309-7974 - cells/uL * L YMPHOCYTES 23.0 - % * A BSOLUTE LYMPHOCYTES 1075 833-7131 - cells/uL * M ONOCYTES 9.4 - % * A BSOLUTE MONOCYTES 592 200-950 - cells/uL * E OSINOPHILS 3.2 - % * A BSOLUTE EOSINOPHILS 202 15-500 - cells/uL * B ASOPHILS 1.0 - % * A BSOLUTE BASOPHILS 63 0-200 - cells/uL * M PV 10.1 7.5-12.5 - fL * Deena Ramirez 02/28/2025 09:29:47 AM EST > Patient informedThis lab was reviewed by Deena Ramirez on 02/28/2025 at 09:29 AM EST Notes: Sinus rhythm, continue current therapy??3.?Other chronic pain? Notes: Doing well with pregabalin, compliant with refill requirements and monitoring??4.?Personal history of nicotine dependence?Imaging: CT Scan : Chest, Lung Cancer Screening* Notes: Has smoked for 40 years. Has quit a couple of times for about a year, encouraged cessation again. He will think about this. Spent greater than 5 minutes discussing need for smoking cessation. Has never had a low-dose CT scan, this will be scheduled??5.?Prostate cancer screening?LAB: HEMOGLOBIN A1c (496)* Value Reference Range H EMOGLOBIN A1c 5.7 H <5.7 - % * Deena Ramirez 02/28/2025 09:29:47 AM EST > Patient informedThis lab was reviewed by Deena Ramirez on 02/28/2025 at 09:29 AM EST ?LAB: PSA, TOTAL (5363)* Value Reference Range P SA, TOTAL 2.98 < OR = 4.00 - ng/mL * Deena Ramirez 02/28/2025 09:29:47 AM EST > Patient informedThis lab was reviewed by Deena Ramirez on 02/28/2025 at 09:29 AM EST Notes: PSA and A1c done for prostate and diabetes screening as noted?? 6.?Diabetes mellitus screening?LAB: HEMOGLOBIN A1c (496)* Value Reference Range H EMOGLOBIN A1c 5.7 H <5.7 - % * Deena Ramirez 02/28/2025 09:29:47 AM EST > Patient kelechiThis lab was reviewed by Deena Ramirez on 02/28/2025 at 09:29 AM EST ?LAB: PSA, TOTAL (5363)* Value Reference Range P SA, TOTAL 2.98 < OR = 4.00 - ng/mL * Deena Ramirez 02/28/2025 09:29:47 AM EST > Patient kelechiThis lab was reviewed by Deena Ramirez on 02/28/2025 at 09:29 AM EST 7.?Multiple melanocytic nevi? Notes: Has scattered melanocytic nevi over his back. Lots of sun damage when he was younger, will schedule dermatology skin evaluation? Referral To: ?Reason:[facility] in own 8.?Routine medical exam?LAB: LIPID PANEL, STANDARD (7600)* Value Reference Range T RIGLYCERIDES 102 <150 - mg/dL * C HOLESTEROL, TOTAL 189 <200 - mg/dL * H DL CHOLESTEROL 35 L > OR = 40 - mg/dL * L DL-CHOLESTEROL 134 H - mg/dL (calc) * C HOL/HDLC RATIO 5.4 H <5.0 - (calc) * N ON HDL CHOLESTEROL 154 H <130 - mg/dL (calc) * Deena Ramirez 02/28/2025 09:29:47 AM EST > Patient informedThis lab was reviewed by Deean Ramirez on 02/28/2025 at 09:29 AM EST Notes: Has had colon screening, will set up low-dose CT and will also need AAA screening. Has had flu shot, will get Tdap today.?? * Immunizations: Boostrix : .5 mL (Dose No:1) (Route: Intramuscular) given by VAN Zayas on Left Deltoid * Procedure Codes: 9 0715 Boostrix, 34598 ADMINISTRATION IMMUNIZATION ONE VACCINE, 51497 BEHAV CHNG SMOKING 3-10 MIN * Follow Up: 3 Months * * Sign off status: Completed true * Provider: Reza Tariq MD Date: 04/26/2024 Generated for Anyi cardoza/Danielito/Jovanaitting on: 01:25 PM EST
--- OUTSIDE RECORDS SUMMARY | 2025-03-14 13:25 | XMS_ITS | Clinical Summary ---
Author Organization [facility] Address [address] [place] [address] Care Team Providers Care Cloth Napping Supervisor Name Role Phone Cedrick Weston MD Primary Care Provider Allergies Active Allergy Reactions Criticality Noted Date [...] 09/26/2011 [facility]-Zoster Vaccines (1 of 2) 09/26/2011 [id number]-75 Vaccine (3 - season) 2024 07/12/2020, 06/14/2020 [facility]-Influenza Vaccine (#1) 2024 [facility]-RSV Vaccine: 60+ Years o r (1 - 1-dose 75+ series) 2036 [facility]-Obesity Intervention Completed 04/29/2022 HPV Vaccines (No Doses Required) Completed [facility]-HIB Vaccines Aged Out No longer e [...] patient's age to complete this topic Insurance CARLOS MANUEL Care Teams Cloth Napping Supervisor Relationship Specialty [place] [id number] [facility] - General 04/23/22
--- OUTSIDE RECORDS SUMMARY | 2025-03-14 13:26 | XMS_ITS | Patient Health Record ---
[facility] Address [address] [place] [id number] Care Team Providers Care Towel Hemmer Name Role Phone Cedrick Weston Unavailable [phone] Allergies Allergen (clinical drug ingredient) Drug/Non Drug [...] 09/18/2022 Active Vitamin D (Ergocalciferol) 1.25 MG (28792 UT) 1 capsule Orally once a week [...] W/U Status Risk Notes Problem Otitis externa (6744373) Otitis externa (H60.90) Active confirmed Plan Of Treatment No Information Insurance Providers Payer Name Payer Address Payer Phone Subscriber Number Group Number Insured Name Patient Relationship to Insured Coverage Start Date Coverage End Date CARLOS MANUEL PRIETO [address] [place] [address] [id number] SHAQ ROSAS Self - patient is the insured Medical (General) History Medical History History ICD Code 25 pack year smoking history as of 2021 osteoarthritis knees Surgical History Surgery Date(Month/Year) RT Knee Replacement, Dr. Castrejon LT Knee Replacement, Dr. Castrejon Hospitalization History Reason Date(Month/Year)
--- OUTSIDE RECORDS SUMMARY | 2025-03-14 13:26 | XMS_ITS | Continuity of Care Document ---
Author Organization ADRIAN louis MD, Main Office Address [address], [facility] [address] [place] [address] Care Team Providers Care Boat Deckhand Name Role Phone EBONI ALVARADO Primary Care Provider [phone] Assessment No assessment recorded. Plan of Treatment Reminders Order Date Submit Date Provider Last Modified By Organization Details Last Modified Time Details Appointments None record ed. Lab None record ed. Referral None record ed. Procedures None record ed. Surgeries None record ed. Imaging None record ed. Medication Orders None record ed. Patient TargetsNo targets recorded. Patient Instructions Encounter Date Encounter Id Patient Instructions Last Modified By Organization Details Last Modified Time 01/28/2025 [id number] neuropathic pain : care instructions [email or web address] Not available 01/28/2025 14:40:08 Reason for Referral None Reported. Results Created Date Observation Date Name Description Value Unit Range Abnormal Flag Note LastModifiedBy Organization Detail LastModifiedTime 01/29/20 25 01/28/2025 nerve condu ction study /EMG (PROC ) No observ ation record ed. BARCODE Venu Jauregui MD [address] [facility] [address], [place], [address], 01/28/2025 14:46:48 Result Notes None recorded. Problems No Known Problems Procedures Surgical History Date Name Laterality Status Provider Name and Address Organization Details Recorded Time NCV/EMG completed Km Jauregui MD 01/28/2025 14:39:41 Knee Surgery completed Vanesa Jauregui MD 01/28/2025 13:37:56 Imaging Results None recorded. Procedure Notes None recorded. Medical Equipment None Reported. Allergies Allergen ID Allergen Name Allergen Category Reaction Reaction Severity Criticality Documentation Date Start Date Code Code System Note Provider Name and Address Organization Details Recorded Time 53796 Product containin g penicilli n (product) medicatio n rash Not available low 01/28/20252022 04812 8001 SNOMED Not Available leslie - External Data Service - prod 13:21:26 Medications Name Sig Start Date Stop Date Status Note LastModified by Organization Details LastModified Time azithromyci n 250 mg tablet TAKE 2 TABLETS BY MOUTH ON DAY 1, THEN TAKE 1 TABLET DAILY ON DAYS 2-5 01/28 completed Not Available Not Available Not Available metronidazo le 500 mg tablet TAKE ONE TABLET BY MOUTH EVERY 8 HOURS --AVOID ANY PRODUCT(S ) CONTAININ G ALCOHOL WHILE TAKING THIS MEDICATIO N-- -- FINISH ALL MEDICINE -- 01/28 completed Not Available Not Available Not Available levothyroxi ne 75 mcg tablet TAKE ONE TABLET BY MOUTH EVERY DAY 01/28 completed Not Available Not Available Not Available levothyroxi ne 125 mcg tablet TAKE ONE TABLET BY MOUTH EVERY DAY active Not Available Not Available No t Available levofloxaci n 750 mg tablet TAKE ONE TABLET BY MOUTH EVERY DAY -- FINISH ALL MEDICINE -- 01/28 completed Not Available Not Available Not Available pregabalin 150 mg capsule TAKE ONE CAPSULE BY MOUTH AT BEDTIME active Not Available Not Available No t Available guaifenesin ER 600 mg tablet, extended release 12 hr TAKE ONE TABLET BY MOUTH EVERY TWELVE HOURS NEEDED FOR congestio n 01/28 completed Not Available Not Available Not Available Vitals Date Recorded Body height Body mass index (BMI) Body weight Heart rate Respiratory rate Systolic And Diastolic Provider Name and Address Organization Details Last Updated DateTime 187.96 cm 28.2 kg/m2 12714.3 2 g 78 /min 17 /min 132/77 mm[Hg] Venu Jauregui MD [address] [facility] [address], [facility], [place], [address] ADRIAN Zhong MD 14:02:02 Social History Question Answer Notes LastModified by Organizat ion Details LastModified Time Tobacco Smoking Status Current Every Day Smoker Vanesa [email or web address] - Venu Jauregui MD 01/28/2025 13:37:30 What Was The Date Of Your Most Recent Tobacco Screening? 01/28/2025 [email or web address] Information not available 01/28/2025 How Much Tobacco Do You Smoke? 0.5 PPD [email or web address] Information not available 01/28/2025 Has Tobacco Cessation Counseling Been Provided? Yes [email or web address] Information not available 01/28/2025 On What Date Was Tobacco Cessation Counseling Provided? 01/28/2025 [email or web address] Information not available 01/28/2025 Sex: Unknown Functional Status Question Answer Note LastModified by [employer] ion Details LastModified Time Do you use any illicit or recreational drugs? No [email or web address] Information not available 01/28/2025 Do you or have you ever used any other forms of tobacco or nicotine? No [email or web address] Information not available 01/28/2025 What is your level of alcohol consumption? None [email or web address] Information not available 01/28/2025 Are you able to walk independently without assistance or assistive devices? YESWOREST Information not available 01/28/2025 Mental Status None recorded. Family History Nothing Reported. Medical History Condition Response Other N Hyperthyroidism N Parkinson's Disease N Alzheimer's N Migraines N Depression N Brain Tumors N Glaucoma N Hypothyroidism N Multiple Sclerosis N Neurological Problems N Diabetes N Anxiety Disorder N Autoimmune disease N Arthritis N Tuberculosis N Hyperlipidemia N Cancer N Stroke N Dementia N Asthma N Epilepsy/Seizures N Vertigo N Aneurysm N Heart Disease N Fibromyalgia N Headaches N Hypertension N Kidney Disease N Past Encounters Encounter ID Performer Location Encounter Start Date Encounter Closed Date Diagnosis/Indication Diagnosis SNOMED-CT Code Diagnosis ICD10 Code Diagnosis IMO Codes Diagnosis Note [id number] Venu Jauregui MD Main Office [address], [place] [place] [address] 01/28/2025 13:21:00 01/28/2025 14:07:32 Weakness of left lower limb [id number] 60624 R29.898 [id number] The patient is a 64-year-ol d white male. He has left leg pain, paresthesi a and weakness. Etiology is to be determined . Peripheral neuropathy versus lumbosacra l radiculopa thy cannot be excluded. 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 Neuropathy 813051877 G62 .9 49839 Health Concerns Section Related Observation LastModified by Organization Detai ls LastModified Time None Recorded Concern Status LastModified by Organization Details LastModified Time None Recorded Payers Encounter Date Sequence Insurance Name Policy Number Policy Draper Covered Member ID Draper Member ID Guarantor Name 01/28/2025 1 [place] [id number] Davy Villarreal [id number] Davy Villarreal Notes Date Note Type Note Provider Name a hi Address Organization Details Recorded Time 01/28/2025 text/html ROS as noted in the HPI Davy is a 64-year-old retired white male. He is accompanied by his Janet for consultation of numbness, pain, pins and needle sensation in his left leg from his knee down to his foot. He is status post left total knee replacement. He had lumbar epidural injection, left knee injection and ankle injection with no improvement. He is taking Lyrica 150 mg at bedtime for sleep. He did not tolerate Lyrica during the day due to sedation. He also has some weakness in his left leg. He denies any diabetes. He had MRI scan of the lumbar spine which showed no disc herniation. He also had nerve conduction study about a year ago. Venu Jauregui MD [address], [facility] [address], [place], [address], [facility] - Venu Jauregui MD 01/28/2025 14:07:30
--- OUTSIDE RECORDS SUMMARY | 2025-03-14 13:26 | XMS_ITS | Data Portability ---
Author Organization ADRIAN - Venu louis MD, Main Office Address [address], [address] [place] [address] Care Team Providers Care Airborne Operations Manager Name Role Phone EBONI ALVARADO Primary Care Provider [phone] Assessment No assessment recorded. Plan of Treatment Reminders Order Date Submit Date Provider Last Modified By Organization Details Last Modified Time Details Appointments None recorded. Lab None recorded. Referral None recorded. Procedures nerve conduction study/EMG (PROC) 2024 025 LESLIE Jauregui MD, [address], [address], [place], [address], 14:46:48 Surgeries None recorded. Imaging None recorded. Medication Orders None recorded. Patient TargetsNo targets recorded. Patient Instructions Encounter Date Encounter Id Patient Instructions Last Modified By Organization Details Last Modified Time 01/28/2025 [id number] neuropathic pain : care instructions [email or web address] Not available 01/28/2025 14:40:08 01/28/2025 [id number] Finding has been discussed with the patient and his in detail. EMG/NCV of the left leg. He is to continue Lyrica 150 mg daily at bed time. He declined taking a higher dose due to sedation. I will see him back in follow-up. [email or web address] Not available 01/28/2025 14:06:26 Reason for Referral None Reported. Results Created Date Observation Date Name Description Value Unit Range Abnormal Flag Note LastModifiedBy Organization Detail LastModifiedTime 01/29/20 25 01/28/2025 nerve condu ction study /EMG (PROC ) No observ ation record ed. BARCODE Venu Jauregui MD [address] [facility] [address], [place], [address], 01/28/2025 14:46:48 Result Notes None recorded. Problems [...] Name and Address Organization Details Recorded Time 74463 Product containin g penicilli n (product) medicatio n rash Not available low 01/28/20252022 92830 8001 SNOMED Not Available leslie - External [...] Last Updated DateTime 187.96 cm 28.2 kg/m2 24937.3 2 g 78 /min 17 /min 132/77 mm[Hg] Venu Jauregui MD [address], [facility] [address], [place], [address] ADRIAN Zhong MD 14:02:02 Social History Question Answer Notes LastModified by Organizat ion Details LastModified Time Tobacco Smoking Status Current Every Day Smoker Vanesa Arenas ADRIAN askew MD 01/28/2025 13:37:30 What Was The Date Of Your Most Recent Tobacco Screening? 01/28/2025 [email or web address] Information not available 01/28/2025 How Much Tobacco Do You Smoke? 0.5 PPD [email or web address] Information not available 01/28/2025 Has Tobacco Cessation Counseling Been Provided? Yes [email or web address] Information not available 01/28/2025 On What Date Was Tobacco Cessation Counseling Provided? 01/28/2025 [email or web address] Information not available 01/28/2025 Sex: Unknown Functional Status Question Answer Note LastModified by Organizat ion Details LastModified Time Do you use any illicit or recreational drugs? No [email or web address] Information not available 01/28/2025 Do you or have you ever used any other forms of tobacco or nicotine? No Information not available 01/28/2025 What is your level of alcohol consumption? None [email or web address] Information not available 01/28/2025 Are you able to walk independently without assistance or assistive devices? YESWOREST [email or web address] Information not available 01/28/2025 Mental Status None recorded. Family History Nothing Reported. Medical History Condition Response Other N Hyperthyroidism N Parkinson's Disease N Alzheimer's N Migraines N Glaucoma N Hypothyroidism N Brain Tumors N Depression N Multiple Sclerosis N Neurological Problems N Diabetes N Anxiety Disorder N Autoimmune disease N Arthritis N Tuberculosis N Hyperlipidemia N Cancer N Stroke N Dementia N Asthma N Epilepsy/Seizures N Vertigo N Aneurysm N Heart Disease N Headaches N Fibromyalgia N Hypertension N Kidney Disease N Past Encounters Encounter ID Performer Location Encounter Start Date Encounter Closed Date Diagnosis/Indication Diagnosis SNOMED-CT Code Diagnosis ICD10 Code Diagnosis IMO Codes Diagnosis Note [id number] Venu Jauregui MD Main Office [address] [facility] [address] [facility] [address] [place] [address] 01/28/2025 13:21:00 01/28/2025 14:07:32 Weakness of left lower limb [id number] 37269 R29.898 [id number] The patient is a 64-year-ol d white male. He has left leg pain, paresthesi a and weakness. Etiology is to be determined . Peripheral neuropathy versus lumbosacra l radiculopa thy cannot be excluded. [id number] Venu Jauregui MD Main Office [address] [facility] [address] 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 Neuropathy 126035869 G62 .9 74920 Health Concerns Section Related Observation LastModified by Organization Detai ls LastModified Time None Recorded Concern Status LastModified by Organization Details LastModified Time None Recorded Advance Directives Directive None Recorded Payers Insurance Date Sequence Insurance Name Policy Number Policy Draper Covered Member ID Draper Member ID Guarantor Name 01/28/2025 1 [place] [id number] Davy Villarreal [id number] Davy Villarreal Notes Date Note Type Note Provider Name a nc Address Organization Details Recorded Time 01/28/2025 text/html [...] ago. Venu Jauregui MD [address], [place] [address], [place], [address], [facility] - Venu Jauregui MD 01/28/2025 14:07:30
--- OUTSIDE RECORDS SUMMARY | 2025-03-14 13:26 | XMS_ITS | Clinical Summary ---
Author Organization [employer] ([place], [place], [place], [place], [place]) Address [address] [place] [address] Care Team Providers Care Pie Icer Machine Name Role Phone Sj, Provider Not In The System MD Primary [...] Date Saji rded Speak language other than Sao Tomean at home Not on file 04/04/2023 Want [...] (1 - 1-dose 75+ series) 2036 Insurance [facility] [place] [employer] Care Teams Pie Icer Machine Relationship Specialty Start Date End Date [facility], Provider Not In The System, [place] [address] PCP - General 05/28/22
--- OUTSIDE RECORDS SUMMARY | 2025-03-14 13:26 | XMS_ITS | Continuity of Care Document ---
Author Organization ADRIAN - Venu louis MD, Main Office Address [address], [address] [place] [address] Care Team Providers Care Division Chair Name Role Phone EBONI ALVARADO Primary Care Provider Assessment No assessment recorded. Plan of Treatment Reminders Order Date Submit Date Provider Last Modified By Organization Details Last Modified Time Details Appointments None recorded. Lab None recorded. Referral None recorded. Procedures nerve conduction study/EMG (PROC) 2024 025 LESLIE Jauregui MD, [address], [address], [place], [address], 14:46:48 Surgeries None recorded. Imaging None recorded. Medication Orders None recorded. Patient TargetsNo targets recorded. Patient Instructions Encounter Date Encounter Id Patient Instructions Last Modified By Organization Details Last Modified Time 01/28/2025 [id number] Finding has been discussed with the patient [...] Abnormal Flag Note LastModifiedBy Organization Detail LastModifiedTime 01/29/2001/28/2025 nerve condu ction study /EMG (PROC ) No observ ation record ed. BARCODE Venu Jauregui MD [address], [place], [address], 01/28/2025 14:46:48 Result Notes None recorded. Problems [...] Name and Address Organization Details Recorded Time 69207 Product containin g penicilli n (product) medicatio n rash Not available low 01/28/20252022 67029 8001 SNOMED Not Available leslie - External [...] and Address Organization Details Last Updated DateTime 11/14/202 5 187.96 cm 28.2 kg/m2 64664.3 2 g 78 /min 17 /min 132/77 mm[Hg] Venu Jauregui MD [address], [place] [address], [place], [address] ADRIAN Zhong MD 14:02:02 Social History Question Answer Notes LastModified by Organizat ion Details LastModified Time Tobacco Smoking Status Current Every Day Smoker Vanesa Arenas ADRIAN askew MD 01/28/2025 13:37:30 What Was The Date Of Your Most Recent Tobacco Screening? 01/28/2025 [email or web address] Information not available 01/28/2025 How Much Tobacco Do You Smoke? 0.5 PPD [email or web address] Information not available 01/28/2025 Has Tobacco Cessation Counseling Been Provided? Yes Information not available 01/28/2025 On What Date Was Tobacco Cessation Counseling Provided? 01/28/2025 [email or web address] Information not available 01/28/2025 Sex: Unknown Functional Status Question Answer Note LastModified by Organizat ion Details LastModified Time Do you use any illicit or recreational drugs? No [email or web address] Information not available 01/28/2025 Do you or have you ever used any other forms of tobacco or nicotine? No [email or web address] Information not available 01/28/2025 What is your level of alcohol consumption? None [email or web address] Information not available 01/28/2025 Are you able to walk independently without assistance or assistive devices? YESWOREST [email or web address] Information not available 01/28/2025 Mental Status None [...] ICD10 Code Diagnosis IMO Codes Diagnosis Note [id number] Venu Jauregui MD Main Office [address], [facility] [place] [address] 01/28/2025 13:21:00 01/28/2025 14:07:32 Weakness of left lower limb [id number] 82116 R29.898 [id number] The patient is a 64-year-ol d white male. He has left leg pain, paresthesi a and weakness. Etiology is to be determined . Peripheral neuropathy versus lumbosacra l radiculopa thy cannot be excluded. [id number] Venu Jauregui MD Main Office [address], [facility] [place] [address] 01/28/2025 13:51:13 01/28/2025 14:41:18 Left leg peripheral neuropathy [id number] 42128 G57.32 08947073 Mild to moderate non localizing left peroneal neuropathy . Neuropathy 647711215 G62 .9 08258 Health Concerns Section Related Observation LastModified by Organization Detai ls LastModified Time None Recorded Concern Status LastModified by Organization Details LastModified Time None Recorded Payers Encounter Date Sequence Insurance Name Policy Number Policy Draper Covered Member ID Draper Member ID Guarantor Name 01/28/2025 1 [place] [id number] Davy Pereyrakins [id number] Davy Phil Notes Date Note Type Note Provider Name a ny Address Organization Details Recorded Time 01/28/2025 text/html [...] ago. Venu Jauregui MD [address], [place] [address], [place], [address], [facility] - Venu Jauregui MD 01/28/2025 14:07:30
--- OUTSIDE RECORDS SUMMARY | 2025-03-14 13:26 | XMS_ITS | Referral Summary ---
Author Organization [employer] ([place], [place], [place], [place], [place]) Address [address] [place] [address] Care Team Providers Care Power Originator Name Role Phone [facility], Provider Not In The System MD Primary [...] Date Saji rded Speak language other than Andorran at home Not on file 04/04/2023 Want [...] Plan of Treatment Not on file Insurance [facility] [employer] Care Teams Power Originator Relationship Specialty Start Date End Date [facility], Provider Not In The System, [place] [address] PCP - General 05/28/22
--- OUTSIDE RECORDS SUMMARY | 2025-03-14 13:26 | XMS_ITS | Patient Health Record ---
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 Member Name Role Phone Raymundo Tariq Primary Care Provider [phone] Raymundo Tariq Unavailable Unavailable Migration, Provider Unavailable Unavailable Allergies Allergen (clinical drug ingredient) Drug/Non Drug Allergy documented on EMR Reaction Allergy Type Onset Date Status penicillin G Penicillin G Potassium hives Drug Allergy Active Results Component Value Reference Range Flag Notes THYROID PANEL WITH TSH (7644 ) Reviewed date:02/28/2025 09:29:56 AM Interpretation: Performing Lab:[facility]-McAfeee1355 BagThat, AdictizGbewCX[address] Johnson Lindo Notes/Report: NON-FASTING; NON-FASTING; NON-FASTING; NON-FASTING; NON-FAST FASTING:YES FASTING: YES T3 UPTAKE 32 22-35 % N T4 (THYROXINE), TOTAL 8.0 4.9-10.5 mcg/dL N FREE T4 INDEX (T7) 2.6 1.4-3.8 N TSH 5.16 0.40-4.50 mIU/L H LIPID PANEL, STANDARD (7600) Reviewed date:02/28/2025 09:29:57 AM Interpretation: Performing Lab:[facility] Admiral Records Managemente1355 HOSTINGteVitasol, Airborne TechnologyDmewAH[address] Johnson Lindo Notes/Report: NON-FASTING; NON-FASTING; NON-FASTING; NON-FASTING; [...] of LDL-C. Shantanu SS et al. ARIANNA. 2013;310(65): 2932-9730 (http://education.SmartStart/faq/GZL584) CHOL/HDLC RATIO 5.4 <5.0 (calc) H NON HDL CHOLESTEROL 154 <130 mg/dL (calc) H For patients with diabetes plus 1 major ASCVD risk factor, treating to a non-HDL-C goal of <100 mg/dL (LDL-C of <70 mg/dL) is considered a therapeutic option. COMPREHENSIVE METABOLIC ELENA Navarrete (89621) Reviewed date:02/28/2025 09:29:57 AM Interpretation: Performing Lab:CB, Hubsphere-Eugene Wbkk5459 [facility], Orton[facility] HospitalJpkfDQ[address] Johnson Lindo Notes/Report: NON-FASTING; NON-FASTING; NON-FASTING; NON-FASTING; [...] Reviewed date:02/28/2025 09:29:57 AM Interpretation: Performing Lab:[facility], Hubsphere-McAfeee13[address] HOSTINGteVitasol, AdictizCjoaET[address] Johnson Lindo Notes/Report: NON-FASTING; NON-FASTING; NON-FASTING; NON-FASTING; NON-FAST FASTING:YES FASTING: YES MAGNESIUM 2.2 1.5-2.5 mg/dL N CBC (INCLUDES DIFF/PLT) (639 9) Reviewed date:02/28/2025 09:29:57 AM Interpretation: Performing Lab:[facility], [facility] [employer] Managemente1355 HOSTINGteVitasol, AdictizSxokOJ[address] Johnson Lindo Notes/Report: NON-FASTING; NON-FASTING; NON-FASTING; NON-FASTING; [...] 10.1 7.5-12.5 fL N ABSOLUTE NEUTROPHILS 3994 8474-0172 cells/uL N ABSOLUTE LYMPHOCYTES 9190 953-2004 cells/uL N ABSOLUTE MONOCYTES 592 200-950 cells/uL N ABSOLUTE EOSINOPHILS 202 15-500 cells/uL N ABSOLUTE BASOPHILS 63 0-200 cells/uL N NEUTROPHILS 63.4 N LYMPHOCYTES 23.0 N MONOCYTES 9.4 N EOSINOPHILS 3.2 N BASOPHILS 1.0 N HEMOGLOBIN A1c (496) Reviewed date:02/28/2025 09:29:57 AM Interpretation: Performing Lab:[facility], Admiral Records Managemente1355 HOSTINGteTitusville Area Hospital[address] Johnson Lindo Notes/Report: NON-FASTING; NON-FASTING; NON-FASTING; NON-FASTING; [...] Reviewed date:02/28/2025 09:29:57 AM Interpretation: Performing Lab:[facility]-Eugene Zboe5931 [facility] CenterteK[facility] HospitalL[address] Johnson Lindo Notes/Report: NON-FASTING; NON-FASTING; NON-FASTING; NON-FASTING; [...] absence of disease. Reason For Referral Reason [facility] Derm in [facility] Diagnosis 1 Multiple melanocytic nevi (D22.9) Referral Organization [facility] Referring Provider First Name Raymundo Referring Provider Last Name Marciano Referring Provider Speciality Internal M edicine Referred Organization [facility] Referred Address [address] [place], [place],[address],[place] Referred Provider Specialty Dermatology Referral Priority Routine Reason LDCT Referral Organization [facility] Referring Provider First Name Raymundo Referring Provider Last Name Marciano Referring Provider Speciality Internal M edicine Referred Organization [facility] Referred Address [address] [facility] [facility] [address] [address], [place], [place],[address],[place] Referred Provider Specialty Diagnostic R adiology General Notes Nidhi Malik 2024 10:12:10 AM >no auth required per [employer] - sent order to [facility] to schedule Referral Priority Routine Medications Medication SIG (Take, Route, Frequency, Duration) [...] Social Info Options Details Social History 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 Dis ability Travel outside [place]: no Alcohol: no Sexually active: yes Recreational drug use: no Exercise: yes yard work Home smoke detector use: yes Caffeine: yes frequency: coffe e, tea Living Will Yes Problems Problem Type SNOMED Code ICD Code Onset Dates Problem Status W/U Status Risk Notes Problem Chronic pain (28775019) Other chronic pain (G89.29) Active confirmed Problem Acquired hypothyroidism (193243468) Acquired hypothyroidism (E03.9) Active confirmed Problem Ventricular bigeminy (38941853) Ventricular bigeminy (I49.8) Active confirmed Vital Signs Heart Rate 92 /min 02/23/2025 Temperature 97.5 degrees Fahrenheit 02/23/2025 Blood pressure diastolic 72 mm Hg 02/23/2025 Height 6ft 2in in 02/23/2025 Blood pressure systolic 100 mm Hg 02/23/2025 Weight 216 lbs 02/23/2025 BMI 27.73 kg/m2 02/23/2025 Encounters Encounter Location Date Provider Diagnosis [facility] [address] [place] [address] 06/19/[address] [facility] [address] [place] [address] 01/12/2025 Raymundo Tariq Acute colitis K52.9 ; Acquired hypothyroidism E03.9 ; Chronic constipation K59.09 and Hospital discharge follow-up Z09 [facility] [address] [place] [address] 02/23/2025 Raymundo Tariq Acquired hypothyroidism E03.9 ; Ventricular bigeminy I49.8 ; Other chronic pain G89.29 ; Personal history of nicotine dependence Z87.891 ; Prostate cancer screening Z12.5 ; Diabetes mellitus screening Z13.1 ; Multiple melanocytic nevi D22.9 ; Routine medical exam Z00.00 and Encounter for immunization Z23 [facility] [address] [place], [place] [address] 01/10/2025 Ray[facility]undo [facility] [address] [place] [address] 02/07/2025 Raymundo Tariq Acquired hypothyroidism E03.9 Assessments Encounter Date Diagnosis (ICD Code) Assessment Notes Treatment Notes Treatment Clinical Notes Section Notes 01/12/2025 Acute colitis (ICD-10 - K52.9) Symptoms have improved/disappear ed. He will finish up antibiotics that were prescribed from hospitalist. 01/12/2025 Acquired hypothyroidism (ICD-10 - E03.9) Long discussion about need for compliance with levothyroxine. Discussed rationale, discussed how to take. Discussed monitoring, I will see him back in 6 weeks for repeat TSH 02/07/2025 Acquired hypothyroidism (ICD-10 - E03.9) 02/23/2025 Acquired hypothyroidism (ICD-10 - E03.9) Appears clinically euthyroid. Will check TSH today. reports compliance with medication 02/23/2025 Ventricular bigeminy (ICD-10 - I49.8) Sinus rhythm, continue current therapy 02/23/2025 Other chronic pain (ICD-10 - G89.29) Doing well with pregabalin, compliant with refill requirements and monitoring 01/12/2025 Chronic constipation (ICD-10 - K59.09) Improving with better control of hypothyroidism and supportive care and MiraLAX. No changes in plan 01/12/2025 Hospital discharge follow-up (ICD-10 - Z09) Personally reviewed H&P and discharge summary as available from hospital discharge documentation. Reviewed pertinent labs and test done in the hospital. Personally reconciled medication. 02/23/2025 Personal history of nicotine dependence (ICD-10 [...] immunization (ICD-10 - Z23) Plan Of Treatment Pending Test Test Name Order Date Echocardiogram 06/30/2023 CT Scan : Chest, Lung Cancer Screening 1 04/26/2024 Next Appt Details Provider Name:Raymundo Tariq, 06/22/2025 09:15:00 AM, [address], [place], [address], Insurance Providers Payer Name Payer Address Payer Phone Subscriber Number Group Number Insured Name Patient Relationship to Insured Coverage Start Date Coverage End Date [facility] [employer] [address] [place] [address] [id number] Davy Villarreal Self - patient is the insured Medical (General) History Medical History History ICD Code IBS Hypotension Irregular Heart Beat Pre-diabetes detected by 3M Screening Colonoscopy 11/07 with isolated hyperplas tic polyp Colitis Surgical History Surgery Date(Month/Year) Right Total Knee replacement x3 since 2018. Most recent surgery was 2022 Left Total Knee Replacement Nov 2022 Appendectomy Cholecystectomy Inguinal Hernia Repair Hospitalization History Reason Date(Month/Year) [facility] 12/2024
--- NOTE | 2025-03-14 13:27 | CT_ITS ---
FINAL REPORT TECHNIQUE: Thin section axial images were obtained through the lungs using a low-dose technique per lung cancer screening protocol. Reconstruction images were obtained using the axial data. Exam was performed using dose reduction technique. This study was performed with techniques to keep radiation doses as low as reasonably achievable (ALARA). Individualized dose reduction techniques using automated exposure control or adjustment of mA and/or kV according to the patient's size were employed. CLINICAL HISTORY: SCREENING smoker 40 years 1/2 ppd COMPARISON: None FINDINGS: CTDLvol: 2.90 DLP: 102.90 Current smoker 20 pack year history Lungs: No acute pulmonary abnormality. There is a 2 mm left upper lobe subpleural nodule best seen on image #39 of series 4. There is a 4 mm left lower lobe nodule seen on image #44 of series 4, and a 4 mm nodule in the left lower lobe best seen on image #50 of series 4. There is evidence of prior granulomatous disease. Lymph nodes: No thoracic lymphadenopathy. Mediastinum: Heart size is normal. Pleura/pericardium: No pleural or pericardial effusion. Other: No acute abnormality in the upper abdomen. IMPRESSION: 3 small nodules are noted in the left lung as described above. Lung RADS: 2 Recommendation: 12-month follow-up LDCT Reviewed, Interpreted and Dictated by Sarah Gonzalez MD Transcribed by Regla Willard Authenticated and [facility]
== END 2025-03-14 23:59 | disposition home or self-care (01) ==
LOC: RAD 13:23
PROVIDERS: PCP Internal Medicine Adolescent Medicine; Visit Provider Internal Medicine Adolescent Medicine
DX: Z12.2 Encounter for screening for malignant neoplasm of respiratory organs (principal); F17.210 Nicotine dependence, cigarettes, uncomplicated; R91.8 Other nonspecific abnormal finding of lung field; J98.4 Other disorders of lung
CPT/HCPCS: 71271